=== PATIENT | female | born 1955 | race Caucasian/White ===

== ENCOUNTER → 2020-04-15 09:54 | Outpatient (BNVA) | payer MEDICARE, SELFPAY | PROVIDERS: Family Provider Nurse Practitioner; PCP Nurse Practitioner; Visit Provider Nurse Practitioner | DX: E11.9 Type 2 diabetes mellitus without complications (principal); I71.4 Abdominal aortic aneurysm, without rupture; E78.2 Mixed hyperlipidemia; I10 Essential (primary) hypertension; F41.1 Generalized anxiety disorder; Z12.39 Encounter for other screening for malignant neoplasm of breast | CPT/HCPCS: 80053; 80061; 82044; 83036; 84443 ==

== ENCOUNTER → 2020-05-02 10:03 | Outpatient (BNVA) | payer MEDICARE, SELFPAY | PROVIDERS: Family Provider Nurse Practitioner; PCP Nurse Practitioner; Visit Provider Nurse Practitioner | DX: L98.9 Disorder of the skin and subcutaneous tissue, unspecified (principal) | CPT/HCPCS: 88305 ==

== ENCOUNTER 2020-05-04 07:59 | Outpatient (CLI) | payer MEDICARE, SELFPAY ==
--- NOTE | 2020-05-04 08:12 | CT_ITS ---
WS: [id number] CT ANGIOGRAPHY abdomen and pelvis AORTA HISTORY: AAA 2.3 cm 2016 TECHNIQUE: CT angiogram is performed during IV injection. Reformation images reviewed. All CT scans a [facility] use at least one of these dose optimization techniques: automated exposure co ntrol; mA and/or kV adjustment per patient size (includes targeted exams where dose is matched to cli nical indication); or iterative reconstruction. CONTRAST: Omnipaque 350; 95 mL IV. DLP: 1543.64 mGycm COMPARISON: 04/02/2017 Incompletely visualized 5 mm nodule at the LEFT lung base. May be the confluence of several pulmonary arteries. Heart size is normal. Small hiatal hernia. Abdominal aorta: Mild atherosclerosis of the abdominal aorta. There is very minimal ectasia of the in frarenal aorta with a maximum diameter of 2.4 cm. Iliac arteries are patent although mildly tortuous. Celiac axis, SMA and renal arteries are all patent with mild atherosclerosis. No high-grade areas of stenosis. Hepatic steatosis. Mild tricuspid regurgitation into hepatic veins. Subcapsular 5 mm hypodensity is p robably a cyst. Liver, spleen and pancreas are negative. No adrenal mass. Bilateral renal cysts with the largest on the RIGHT slightly lobulated 4.9 cm. No adenopathy or ascites. Mild diffuse constipati on. Fat-containing 10 mm nodule in the ascending colon is probably a lipoma. Several scattered divert icula in the sigmoid region with no acute inflammation. Uterus is slightly bulky and there is a linear hyperdense structure within the central endometrium wh ich could be an IUD device. Degenerative changes at L5-S1. No osteoblastic or osteolytic bone disease. Sclerotic focus in the pro ximal LEFT femur is probably a bone island. CT/CT angio abdomen pelvis [id number] IMPRESSION: 1. Long-term stability of minimal aneurysmal dilatation of the infrarenal aort a. Maximum diameter of 2.4 cm. 2. Hepatic steatosis. 3. Small hiatal hernia. 4. Bilateral renal cysts. 5. Constipation and a few scattered sigmoid diverticula. 6. Bulky uterus and foreign body in the central uterus may be an IUD. Recomme nd correlation with history and BILINGUAL HR GENERALIST examination. Transvaginal imaging of the ut erus may be necessary to evaluate for possible fibroids.
[2020-05-04] MEDS: iohexol 350 mg/mL 100 mL Btl IV (08:41)
== END 2020-05-04 08:00 | disposition home or self-care (01) ==
LOC: RADWPI 08:04
PROVIDERS: Family Provider Nurse Practitioner; PCP Nurse Practitioner; Visit Provider Nurse Practitioner
DX: I71.4 Abdominal aortic aneurysm, without rupture (principal); K76.0 Fatty (change of) liver, not elsewhere classified; K44.9 Diaphragmatic hernia without obstruction or gangrene; N28.1 Cyst of kidney, acquired; K59.00 Constipation, unspecified; T19.3XXA Foreign body in uterus, initial encounter; X58.XXXA Exposure to other specified factors, initial encounter
CPT/HCPCS: 74174; Q9967

== ENCOUNTER → 2020-09-28 09:29 | Outpatient (BNVA) | payer MEDICARE, SELFPAY | PROVIDERS: Family Provider Nurse Practitioner; PCP Nurse Practitioner; Visit Provider Nurse Practitioner | DX: E11.9 Type 2 diabetes mellitus without complications (principal); E78.2 Mixed hyperlipidemia; I10 Essential (primary) hypertension; F41.1 Generalized anxiety disorder | CPT/HCPCS: 73630; 80053; 80061; 81000; 82043; 83036 ==

== ENCOUNTER 2020-10-18 10:02 | Emergency (ER) | payer MEDICARE, SELFPAY ==
[2020-10-18 10:12] VITALS: BP 168/80; PULSE 68; RESP 18; TEMP 36.7; O2SAT 98; BMI 29.7
--- NOTE | 2020-10-18 10:33 | ECG_ITS ---
[facility] Test Date: 2020-10-18 Pat Name: Maricel Edwards Department: Room: Gender: Female Cabin Crew: : 1955 Requested By: Tyree Ashton Order Number: [id number] Zeinab MD: Gemma Love M.D. Measurements Intervals [place] Rate: 69 P: 51 GA: 144 QRS: -5 QRSD: 106 T: 16 QT: 419 QTc: 449 Interpretive Statements SINUS BRADYCARDIA POSSIBLE LEFT ATRIAL ENLARGEMENT [> 1mm x 0.07mV NEG P AREA IN V1] LEFT AXIS DEVIATION [QRS AXIS <= 20, 3-5mo] INTRAVENTRICULAR CONDUCTION DELAY No previous ECG available for comparison Electronically Signed On 10-18-2020 21:42:12 [employer] MARKETING MANAGER by Gemma Love M.D. [id number] f
--- NOTE | 2020-10-18 10:33 | CT_ITS ---
WS: [id number] CT ABDOMEN AND PELVIS NONCONTRAST HISTORY: flank pain, right-sided flank pain and microhematuria. TECHNIQUE: Imaging performed through the abdomen and pelvis. Coronal and sagittal reformats are submi tted. All CT scans at [facility] use at least one of these dose optimization techniques: automated exposure control; mA and/or kV adjustment per patient size (includes targeted exams where d ose is matched to clinical indication); or iterative reconstruction. DLP: 1421.23 mGy.cm COMPARISON: 05/04/2020 Lower thorax: Lung bases are hyperinflated. LEFT lower lobe patchy opacifications from pneumonia or p neumonitis. New LEFT lower lobe opacification since 05/04/2020. Heart size is top normal. No pericardia l effusion. Small hiatal hernia. Liver: Marked hepatomegaly and hepatic steatosis. There are a few scattered areas of decreased attenu ation within the liver which cannot be further characterized no interval change. Gallbladder: Normal gallbladder. Pancreas: Normal size pancreas. There is a calcification in the tail of the pancreas. There is also a ir in the pancreatic duct which is probably refluxing from the duodenum. Spleen: Normal. Adrenal glands: Normal. No mass. Right kidney: Marked hydronephrosis and hydroureter. Ureter is tortuous and dilated throughout its co urse. 5 mm distal calcification in the ureter causing the obstruction. There is also a known lobulate d 4.2 cm renal cyst. 2 mm nonobstructing calcification upper pole. Additional 3 mm calcification lowe r pole. Left kidney: Hypodense 1.0 cm cyst in the upper pole is stable. No obstruction. Aorta: Mild dilatation of the infrarenal aorta with maximum diameter of 2.3 cm. Mild atherosclerosis. No free fluid, intraperitoneal air or significant lymphadenopathy. GI tract: No GI tract obstruction. Mild constipation. The appendix is normal. Abdominal wall: Fat-containing umbilical hernia. Pelvis: Jorgensen catheter present in a nondistended urinary bladder. Uterus is retroverted and contains an IUD. No free fluid in the pelvis. Osseous structures: Stable sclerotic lesion in the proximal LEFT femur. CT/CT kidney stone [id number] IMPRESSION: 1. High-grade RIGHT hydroureteronephrosis secondary to a 5 mm UV junction calc ification. 2. Hepatomegaly and hepatic steatosis. 3. LEFT lower lobe opacifications probably due to pneumonitis or pneumonia. 4. Small hiatal hernia. 5. Small amount of air in the pancreatic duct is probably due to reflux from t he duodenum.
--- NOTE | 2020-10-18 10:33 | W.ED.ABDPA2 ---
HPI - Abdominal Pain General: Chief Complaint: Abdominal Pain Stated Complaint: kidney pain Time Seen by Provider: 10/18/20 10:10 History of Present Illness: HPI narrative: 59-year-old female presents emergency room complaining of right flank pain radiating down to the groin began earlier this morning. Yesterday she had fallen from standing but did not hit her side or her back just tripped while walking in the black. She not noticed any hematuria she has no history of any nephrolithiasis. She has difficult time trying to find a comfortable position is repositioning continually in the exam room. No prior abdominal surgeries. MD elicited complaint: flank pain Pertinent past history: none Onset (ago): hour(s) Pain Consistency: constant Location: R flank Quality: cramping and stabbing Migration to: other (Right groin) Exacerbating factors: nothing Relieving factors: nothing Associated Symptoms: Reports GI cramping, nausea and poor appetite; Denies anorexia, belching, bloating, change in bowel habits, change in stool character, chills, coffee ground emesis, constipation, diarrhea, dyspepsia, dysuria, excessive flatus, fever(s), heartburn, hematochezia, hematuria, hematemesis, fecal incontinence, loose stools, melena, syncope and vomiting Review of Systems Const: Denies: fever(s) or chills ENMT: Denies: throat pain, ear or mastoid pain, nasal discharge or nasal congestion Card: Denies: syncope Resp: Denies: dyspnea, productive cough or non-productive cough GI: Reports: nausea and GI cramping; Denies: vomiting, hematemesis, coffee ground emesis, heartburn, diarrhea, constipation, bloating, belching, excessive flatus, fecal incontinence, change in bowel habits, change in stool character, hematochezia or melena : Denies: dysuria or hematuria Skin/Breast: Denies: rash or pruritus PFSH ED PFSH: Medical History (Updated 10/18/20 @ 13:00 by Tyree Shepard DO) AAA (abdominal aortic aneurysm) 2.3cm 2016 2.4cm 05/04/2020 Anxiety, generalized Bilateral renal cysts 05/04/2020 Controlled diabetes mellitus Diverticula of colon Hiatal hernia HTN, goal below 130/80 Mixed hyperlipidemia Nonalcoholic fatty liver disease Surgical History 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 finger History of cardiac radiofrequency ablation 2008 at [facility] Family History Other Herpes zoster Denies family history of Bleeding disorder Social History Smoking and tobacco status: never smoked Second hand smoke exposure: No Smoking risk assessment/counseling performed?: No Alcohol intake: never Desire information about alcohol rehabilitation?: No Counseling given: No Desire information about substance/drug rehabilitation?: No Counseling given: No Adopted: No Caregiver/support person: No Lives independently: Yes Household members: spouse Housing: House Marital status: Number of children: 2 Number of grandchildren: 8 Highest education level completed: Associate Degree: Academic Program service: No Current occupational status: retired Pets and animals: Yes History of recent travel: No Current gender identity: Female Physical Exam Const: COMMON NORMALS: no acute distress GENERAL APPEARANCE: cooperative and comfortable ORIENTATION/CONSCIOUSNESS: Yes awake, Yes oriented to person, Yes oriented to place and Yes oriented to time HENMT: COMMON NORMALS: normocephalic, atraumatic and hearing grossly normal bilaterally HEAD & SCALP: normocephalic and atraumatic Eye: COMMON NORMALS: Equal, round and reactive pupils present, EOMs intact bilaterally, conjunctivae normal and no scleral icterus CONJUNCTIVA: Yes conjunctivae normal PUPIL: Yes Equal, round and reactive pupils present Neck/C-Spine: COMMON NORMALS: no JVD Resp: COMMON NORMALS: normal respiratory effort, No retractions, No use of accessory muscles and clear to auscultation bilaterally AUSCULTATION: clear to auscultation bilaterally Cardio: COMMON NORMALS: no JVD, regular rate, regular rhythm and No murmurs present (Cardio) RATE: regular rate RHYTHM: regular rhythm GI: COMMON NORMALS: Soft to palpation and No hepatosplenomegaly present AUSCULTATION: Yes normoactive bowel sounds PALPATION: Yes Soft to palpation, No Tenderness to palpation present (GI), No Guarding due to palpation present (GI) and Yes No hepatosplenomegaly present : BLADDER/KIDNEY EXAM: Yes CVA tenderness Back/Pelvis: GENERAL BACK: Yes CVA tenderness CVA tenderness: right Extremity: COMMON NORMALS: normal to inspection, capillary refill normal, no clubbing, cyanosis or edema, no calf tenderness and no pedal edema Neuro: SENSORIUM/ORIENTATION: Yes oriented to person, Yes oriented to place and Yes oriented to time Skin: COMMON NORMALS: no rashes or lesions noted GENERAL SKIN EXAM: no rashes or lesions noted Course Vital Signs: Vital signs: Vital Signs Temperature 98.1 F 10/18/20 10:12 Pulse Rate 68 10/18/20 10:12 Respiratory Rate 18 10/18/20 12:14 Blood Pressure 168/80 10/18/20 10:12 Pulse Oximetry 98 10/18/20 12:14 MDM - Abdominal Pain Lab Data: Labs: Lab Results 10/18/20 10/18/20 10/18/20 Range/Units 10:25 10:25 11:17 WBC 9.1 (4.0-10.0) 10^3/ uL RBC 4.93 (4.1-5.3) 10^6/u L Hgb 15.7 H (11.5-15.3) g/dL Hct 49.2 H (37.0-47.0) % MCV 99.8 H (81-99) fL MCH 31.8 (28.0-34.0) pg MCHC 31.9 (30.0-36.0) g/dL RDW 12.6 (12.1-15.1) % Plt Count 166 (130-400) 10^3/c mm MPV 10.4 (7.4-10.4) fL Neut % (Auto) 67.9 % Lymph % (Auto) 23.5 % Traverse % (Auto) 8.0 % Eos % (Auto) 0.2 % Baso % (Auto) 0.1 % Neut # (Auto) 6.18 (1.8-7.7) 10^3/u L Lymph # (Auto) 2.1 (0.8-4.8) 10^3/u L Traverse # (Auto) 0.7 (0.2-0.9) 10^3/u L Eos # (Auto) 0.0 (0.0-0.8) 10^3/u L Baso # (Auto) 0.0 (0.0-0.1) 10^3/u L Nucleated RBC % (a uto) 0 % Nucleated RBCs # 0.0 /100WBC Sodium 142 (136-145) mmol/L Potassium 3.2 L (3.5-5.1) mmol/L Chloride 107 (98-107) mmol/L Carbon Dioxide 21 L (22-29) mmol/L Anion Gap 17.2 (5-19) BUN 13 (8-23) mg/dL Creatinine 0.7 (0.5-0.9) mg/dL GFR Calculation 83.7 L (90-130) mL/min Glucose 132 H (65-115) mg/dL Calculated Osmolal ity 296 H (285-295) mOsm/k g Calcium 8.6 (8.5-10.5) mg/dL Total Bilirubin 0.3 (0.15-1.2) mg/dL AST 30 (0-32) U/L ALT 32 (0-33) U/L Alkaline Phosphata se 97 (35-105) IU/L Total Protein 6.9 (6.6-8.7) g/dL Albumin 3.9 (3.5-5.2) g/dL Globulin 3.0 (1.3-4.6) g/dL Urine Color Yellow (Yellow) Urine Appearance Hazy A (CLEAR) Urine pH 5 (5-7) Ur Specific Gravit y 1.025 (1.005-1.030) Urine Protein 1+ H (Negative) Urine Glucose (UA) Norm (Normal) Urine Ketones Negative (Negative) Urine Blood 3+ H (Negative) Urine Nitrate Negative (Negative) Urine Bilirubin Neg (Negative) Urine Urobilinogen Norm (Negative) mg/dL Ur Leukocyte Linda ase Negative (Negative) Urine RBC 10-15 H (0-2) /hpf Urine WBC 0-4 H (0-5) /hpf Ur Squamous Epith Cells 0-4 H (0-5) /hpf Amorphous Sediment Trace /hpf Urine Bacteria 2+ H (NONE) /hpf Urine Mucus 1+ /hpf Urine Yeast Trace /hpf Discharge Plan Discharge Patient Disposition: Home Clinical Impression: Calculus of kidney Condition: Stable Prescriptions: New hydrocodone-acetaminophen 5-325 mg tablet 1 tab PO Q6H PRN (Reason: pain) Qty: 25 RF: 0 Zofran 4 mg tablet 4 mg PO Q6H PRN (Reason: nausea and vomiting) Qty: 20 RF: 0 tamsulosin 0.4 mg capsule 0.4 mg PO DAILY Qty: 30 RF: 0 No Action atorvastatin 40 mg tablet 40 mg PO DAILY Qty: 90 RF: 1 metformin 500 mg tablet extended release 24 hr 500 mg PO BID Qty: 180 RF: 1 metoprolol succinate 50 mg tablet extended release 24 hr 50 mg PO DAILY Qty: 90 RF: 1 venlafaxine 75 mg capsule,extended release 24hr 75 mg PO DAILY Qty: 90 RF: 1 meloxicam [Mobic] 7.5 mg tablet 7.5 mg PO DAILY Qty: 90 RF: 1 Discharge Orders: Discharge Order (Routine); Ordered 10/18/20 Ordered By: Tyree Shepard Referrals: Jesus Peng, CHRISTIANC [Primary Care Provider] - Discharge Diet: Usual diet Discharge Activity: Increase activity as tolerated Activity Restrictions/Additional Instructions: Strain urine to collect stone. Return to the hospital with stone if you are able to collect it. Case management will call will follow up with the urologist. If pain is uncontrolled return to the emergency room. Coding Level of Care Code ED [place] [employer] Attendant for [place] Fwd Exam Comprehensive
[2020-10-18 10:38] VITALS: RESP 18; O2SAT 98
[2020-10-18] MEDS: morphine 4 mg/mL SDV 1 mL 6 MG IVP ×2 (10:38→12:14)
[2020-10-18] MEDS: ondansetron 2 mg/ML SDV 2 mL 4 MG IVP ×2 (10:38→12:13)
[2020-10-18 10:39] LABS: Basophils % 0.1 %; Eosinophils % 0.2 %; Hematocrit 49.2 % (37.0-47.0); Hemoglobin 15.7 g/dL (11.5-15.3); Lymphocytes # 2.1 10^3/uL (0.8-4.8); Lymphocytes % 23.5 %; Mean Corpuscular HGB Conc 31.9 g/dL (30.0-36.0); Mean Corpuscular Hemoglobin 31.8 pg (28.0-34.0); Mean Corpuscular Volume 99.8 fL (81-99); Mean Platelet Volume 10.4 fL (7.4-10.4); Monocytes # 0.7 10^3/uL (0.2-0.9); Neutrophils # 6.18 10^3/uL (1.8-7.7); Neutrophils % 67.9 %; Nucleated Red Blood Cells % 0 %; Platelet Count 166 10^3/cmm (130-400); Red Blood Count 4.93 10^6/uL (4.1-5.3); Red Cell Distribution Width 12.6 % (12.1-15.1); White Blood Count 9.1 10^3/uL (4.0-10.0)
[2020-10-18 11:01] LABS: Alanine Aminotransferase 32 U/L (0-33); Albumin Level 3.9 g/dL (3.5-5.2); Alkaline Phosphatase 97 IU/L (35-105); Anion Gap 17.2 (5-19); Aspartate Amino Transferase 30 U/L (0-32); Blood Urea Nitrogen 13 mg/dL (8-23); Calcium 8.6 mg/dL (8.5-10.5); Carbon Dioxide 21 mmol/L (22-29); Chloride 107 mmol/L (98-107); Glomerular Filtration Rate 83.7 mL/min (90-130); Glucose 132 mg/dL (65-115); Osmolality Calculated 296 mOsm/kg (285-295); Potassium 3.2 mmol/L (3.5-5.1); Sodium 142 mmol/L (136-145); Total Bilirubin 0.3 mg/dL (0.15-1.2); Total Protein 6.9 g/dL (6.6-8.7)
[2020-10-18 11:04] VITALS: O2SAT 91
[2020-10-18 11:38] LABS: Add Urine Microscopic? YES; Bilirubin Urine Neg (Negative); Blood Urine 3+ (Negative); Glucose Urine UA Norm (Normal); Ketones Urine Negative (Negative); Leukocyte Esterase Urine Negative (Negative); Nitrate Urine Negative (Negative); Protein Urine 1+ (Negative); Specific Gravity, Urine 1.025 (1.005-1.030); Urine Appearance Hazy (CLEAR); Urine Color Yellow (Yellow); Urobilinogen Urine Norm (Negative); pH Urine 5 (5-7)
[2020-10-18 11:45] LABS: Bacteria Urine 2+ /hpf; Squamous Epithelial Cell Urine 0-4 /hpf (0-5); WBC Urine 0-4 /hpf (0-5)
[2020-10-18 11:46] LABS: Mucus Urine 1+ /hpf
[2020-10-18 11:47] LABS: Amorphous Sediment Urine TRACE /hpf
[2020-10-18 11:48] LABS: Add Urine Culture? Yes
--- NOTE | 2020-10-18 12:00 | XR_ITS ---
WS: [id number] Exam: XR chest 1V portable [id number] Date/Time of Exam: 10/18/2020 12:00 PM Reason For Exam: dyspnea/cough Comparison 04/20/2016. Findings: The lungs are clear and fully expanded. Costophrenic angles are sharp. No infiltrates. Bronchovascula r relief appears normal. Cardiac silhouette is unremarkable. Bony elements are intact. XR/XR chest 1V portable [id number] IMPRESSION: Unremarkable chest radiograph.
[2020-10-18 12:14] VITALS: RESP 18; O2SAT 98
[2020-10-18 13:25] VITALS: BP 152/82; PULSE 76; RESP 16; O2SAT 98
[2020-10-18 13:31] VITALS: O2SAT 98
--- NOTE | 2020-10-18 14:21 | DCPLANNER ---
ict development manager was asked to schedule a follow up appointment for patient with Dr. Bailon. ict development manager called the office of Dr. Bailon, spoke with Ayla, gave clinic patients information. ict development manager was told that patients information would be printed and reviewed. Clinic will call patient with appointment information.
--- NOTE | 2020-10-26 09:59 | DCPLANNER ---
Patient had a follow up appointment scheduled for 10.19.[address] Bailon - patient did attend appointment.
== END 2020-10-18 13:35 | disposition home or self-care (01) ==
PROVIDERS: Emergency Provider Family Medicine; PCP Nurse Practitioner
DX: N20.0 Calculus of kidney (principal); E11.9 Type 2 diabetes mellitus without complications; Z79.84 Long term (current) use of oral hypoglycemic drugs; E78.2 Mixed hyperlipidemia
CPT/HCPCS: 12345; 51702; 71045; 74176; 80053; 81001; 85025; 87086; 93005; 96374; 96375; 96376; 99283; 99284; J2270; J2405

== ENCOUNTER 2020-10-19 08:59 | Outpatient (CLI) | payer MEDICARE, SELFPAY ==
--- NOTE | 2020-10-19 09:18 | XR_ITS ---
WS: [id number] Exam: XR KUB [id number] Date/Time of Exam: 10/19/2020 9:21 AM Reason For Exam: KIDNEY STONE No sign of bowel obstruction or free air. Several tiny nonspecific pelvic calcifications are noted. N o suspicious calcifications superimposing the renal silhouettes. A linear opaque density is seen in t he pelvis that may represent an IUD. Regional bony structures are intact. Degenerative changes of the lower lumbar spine. XR/XR KUB [id number] IMPRESSION: 1. Nonspecific small pelvic calcifications. 2. No acute finding.
== END 2020-10-19 09:00 | disposition home or self-care (01) ==
LOC: RAD 09:17
PROVIDERS: PCP Nurse Practitioner; Visit Provider Urology
DX: N20.0 Calculus of kidney (principal); N20.1 Calculus of ureter
CPT/HCPCS: 74018; 81003; 87635

== ENCOUNTER 2020-10-21 11:09 | Day surgery (SDC) | payer MEDICARE, SELFPAY ==
[2020-10-20 15:59] VITALS: BMI 29.7
--- NOTE | 2020-10-21 | SCC_ITS ---
Procedure Done: 1. Cystoscopy, RIGHT: ureteroscopy, laser, stent 2. Right retrograde pyelogram 24.2 seconds of fluoroscopic guidance, for a cumulative dose of 9.51 mGy, was provided to Dr. Bailon by the radiology department. C-arm images of the abdomen were saved for the patient's permanent record. [facility]
--- NOTE | 2020-10-21 11:17 | SC_ITS ---
WS: [id number] C-arm FL for Urology REASON FOR EXAM: RIGHT ureteroscopy FINDINGS: Single AP view of the right abdomen demonstrates a presumed right ureteral catheter. Contrast has bee n injected however the volume and density is nondiagnostic. SC/C-arm FL for Urology IMPRESSION: Intraprocedural imaging of the right urinary tract as above.
[2020-10-21 11:23] VITALS: BP 113/73; PULSE 82; RESP 18; TEMP 36.7; O2SAT 96
[2020-10-21] MEDS: sodium chloride 0.9% 1,000 ML 30 ML IV (11:38)
[2020-10-21 11:44] LABS: Glucose Point of Care 96 mg/dL (70-110)
--- NOTE | 2020-10-21 11:46 | ANES.PREANE2 ---
Pre-Anesthetic Assessment Pre-Anesthetic Assessment: Height/Weight: Height 1.7 m Weight 86.183 kg Temp Pulse Resp BP Pulse Ox 98.1 F 82 18 113/73 96 10/21/20 11:23 10/21/20 11:23 10/21/20 11:23 10/21/20 11:23 10/21/20 11:23 Preop Diagnosis: Right distal ureteral stone Proposed Procedure: Operation Date: 10/21/20 13:00 Proposed Procedures p Laser Lithotripsy 16951 [id number] 23239 N20.1 n20.0(Not Applicable) - Sherif Bailon MD s Cystoscopy(Not Applicable) - Sherif Bailon MD s Retrograde Pyelogram(Right) - Sherif Bailon MD s Ureteroscopy(Not Applicable) - Sherif Bailon MD s Ureteral Stent Placement(Not Applicable) - Sherif Bailon MD Familial anesthetic complications: None Was Beta Sylvie taken within 24 hours: Yes Last intake: Intake Last Liquid Date 10/21/20 Last Liquid Time 08:00 Last Solid Date 10/20/20 Last Solid Time 19:00 Social: Social History: No alcohol and No tobacco Exam: Pre-Anes Outpt Exam: alert, oriented x 3, clear to auscultation bilaterally and regular rate & rhythm Airway: Cervical ROM: WNL MP: 3 Dentition: Other (missing) CV/HEM: CV/HEM: HTN Comments: AAA Hx cardiac ablation for tachycardia at [facility] in 2007 Hepatic: Comments: fatty liver GI: GI: Hiatus hernia Metabolic: Metabolic: DM and Hyperlipidemia Anesthetic Plan: ASA status: 3 Anesthesia: General Risk of > 500 ml blood loss (7ml/kg in children): No Meds/Allergies Current Medications: Current Medications Generic Name Dose Route Start Last Admin Trade Name Freq PRN Reason Stop Dose Admin Sodium Chloride 1,000 mls @ 30 ml s/hr 10/21/20 11:30 10/21/20 11:38 Sodium Chloride 0.9% IV 10/22/20 11:29 30 mls/hr .Q24H PRETTY Administration PFSH Anesthesia PFSH: Medical History AAA (abdominal aortic aneurysm) 2.3cm 2016 2.4cm 05/04/2020 Anxiety, generalized Bilateral renal cysts 05/04/2020 Controlled diabetes mellitus Diverticula of colon Hiatal hernia HTN, goal below 130/80 Mixed hyperlipidemia Nonalcoholic fatty liver disease Right ureteral stone Surgical History 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 finger History of cardiac radiofrequency ablation 2008 at [facility] Family History Other Herpes zoster Denies family history of Bleeding disorder Social History Smoking and tobacco status: never smoked Second hand smoke exposure: No Smoking risk assessment/counseling performed?: No Alcohol intake: never Desire information about alcohol rehabilitation?: No Counseling given: No Desire information about substance/drug rehabilitation?: No Counseling given: No Adopted: No Caregiver/support person: No Lives independently: Yes Household members: spouse Housing: House Marital status: Number of children: 2 Number of grandchildren: 8 Highest education level completed: Associate Degree: Academic Program service: No Current occupational status: retired Pets and animals: Yes History of recent travel: No Current gender identity: Female Data Anesthesia Other Labs: Laboratory Results - last 48 hr 10/21/20 11:38 POC Glucose 96 Cardiac Studies: No Data to Display
[2020-10-21] MEDS: levofloxacin-dextrose 5 % 500 MG/100 ML PREMIX 100 MG IV (13:47)
--- NOTE | 2020-10-21 13:51 | W.PM.OPSUD ---
Surgery/Procedure H&P Update DATE OF PROCEDURE: October 21, 2020 DATE H&P PERFORMED: 10/19/20 H&P UPDATE INFORMATION: I have reviewed H&P completed within last 30 days, I have examined patient prior to procedure, No changes to prior documentation and H&P is in [facility] EMR on date indicated CHANGES TO PREVIOUS DOCUMENTATION: She is still having some symptoms although not as severe renal colicky pain. Has been diligent about straining her urine and has not seen any obvious stone compatible with what has been identified on CT scan and KUB. Her COVID-19 test has not been resulted yet. It has been over 48 hours which was our previous protocol. We will take the appropriate Covid 19 precautions. PREOP DIAGNOSIS: Right distal ureteral stone PLANNED PROCEDURE: Operation Date: 10/21/20 13:00 Proposed Procedures p Laser Lithotripsy 77587 [id number] N20.1 n20.0(Not Applicable) - Sherif Bailon MD s Cystoscopy(Not Applicable) - Sherif Bailon MD s Retrograde Pyelogram(Right) - Sherif Bailon MD s Ureteroscopy(Not Applicable) - Sherif aBilon MD s Ureteral Stent Placement(Not Applicable) - Sherif Bailon MD
--- NOTE | 2020-10-21 13:53 | P.OP_ITS ---
Operative Report Date of procedure: October 21, 2020 Pre-op Diagnosis: Right distal ureteral stone Post-op diagnosis: same Procedure Done: 1. Cystoscopy, RIGHT: ureteroscopy, laser, stent 2. Right retrograde pyelogram Implants: Right ureteral stent, 7 Bhutanese by 26 cm double-pigtail stent without string Pathology: Stone fragments Surgeon: Adamaris Anesthesia: General Estimated blood loss: Minimal Urine output: Not measured Complications: None Findings: Stone in the expected position. Completely fragmented and all fragments removed. Stent left indwelling due to significant ureteral inflammatory change where the stone had been lodged. Brief History: Maricel is a very pleasant 65-year-old white female recently diagnosed with obstructing right distal ureteral stone. She initially chose conservative management but has failed to pass the stone and is still symptomatic at this dictation time. Her right kidney was significantly dilated as was the ureter. Plans are for endoscopic treatment of the stone. Procedure: After routine preoperative evaluation examination and obtaining of informed consent was taken to the operating suite on 10/21/2020 where general anesthesia was administered without difficulty after appropriate timeout was performed, SCDs confirmed to be functioning, preoperative antibiotics administered, beta- will protocol confirmed. Prepped and draped in usual sterile fashion in dorsal lithotomy position pain careful attention to avoiding pressure points. 21 Bhutanese cystoscope with 30 degree lens was introduced to urethral meatus and advanced into the bladder under videoscopy. The bladder was systematically examined. No stones were seen. An 8 Bhutanese cone-tip catheter was intubated into the RIGHT ureteral orifice for a right retrograde ureteropyelogram: Filling defect was noted in the very distal ureter about 1 cm proximal to the ureteral orifice. The filling defect was consistent with the stone seen previously. Contrast did easily flow proximal to the stone and showed a dilated ureter. No other filling defects were noted. A flexible tip guidewire was then advanced up the right ureter bypassing the st one and passed into the kidney. Ureter distal to the stone was dilated with a 15 Bhutanese 4 cm balloon. The wire was secured to the drapes as a safety wire. An offset semirigid ureteroscope was then advanced up the right ureter next to the wire and the stone was encountered in the expected position. It was very spiky . A 365 ?m thulium superpulse laser fiber was used to fragment the stone mostly into sand but with a few fragments that were removed with a parachute basket. Final inspection showed a lot of inflammatory change where the stone had been located but no other significant fragments were identified with passage of the scope up to the UPJ. Because of the localized inflammatory response it was decided to leave a stent indwelling and a 7 Bhutanese by 26 cm double-pigtail stent without string was passed over the guidewire through the cystoscope into appropriate position as confirmed via fluoroscopy and cystoscopy. Remaining fragments in the bladder were flushed free and sent for pathologic evaluation. Stent was confirmed to be draining. Tolerated the procedure well. Awakened in the operating room and returned to the recovery room in stable condition. PLANS: 1. Anticipate discharge from outpatient surgery 2. Maintain stent until week of the with removal in the office via cystoscopy.
[2020-10-21 14:41] VITALS: BP 136/87; PULSE 93; RESP 18; TEMP 36.6; O2SAT 90
[2020-10-21 14:45] VITALS: BP 126/76; PULSE 90; RESP 17; O2SAT 93
[2020-10-21 14:50] VITALS: BP 110/55; BP 140/79; PULSE 80; PULSE 88; RESP 16; RESP 18; TEMP 36.7; TEMP 36.9; O2SAT 93
[2020-10-21 15:15] VITALS: BP 102/50; PULSE 85; RESP 18; O2SAT 92
--- NOTE | 2020-10-21 18:39 | ANE.PACU2 ---
Inpatient post-anesthesia follow up: Airway intact: Yes Vital signs: Temperature 98.1 F Pulse Rate 85 Respiratory Rate 18 Blood Pressure 102/50 Pulse Oximetry 92 Oxygen Delivery Me thod Room Air Oxygen Flow Rate Fraction of Inspir ed Oxygen Hydration adequate: Yes Nausea and vomiting: No Pain level: 1 Mental status: Baseline
[2020-10-29 17:22] LABS: Stone Source RIGHT URETER
== END 2020-10-21 15:40 | disposition home or self-care (01) ==
PROVIDERS: PCP Nurse Practitioner; Visit Provider Urology
PROC: (CPT 52356; principal; 2020-10-21 13:00)
PROC: 0TJB8ZZ Inspection of Bladder, Via Natural or Artificial Opening Endoscopic (ICD-10-PCS; CPT 52000; 2020-10-21 13:00)
PROC: (CPT 74420; 2020-10-21 13:00)
PROC: 0TJ98ZZ Inspection of Ureter, Via Natural or Artificial Opening Endoscopic (ICD-10-PCS; CPT 52351; 2020-10-21 13:00)
PROC: (CPT 50605; 2020-10-21 13:00)
DX: N20.1 Calculus of ureter (principal); I10 Essential (primary) hypertension; E11.9 Type 2 diabetes mellitus without complications; E78.5 Hyperlipidemia, unspecified; F41.9 Anxiety disorder, unspecified; E78.2 Mixed hyperlipidemia; Z79.84 Long term (current) use of oral hypoglycemic drugs
CPT/HCPCS: 52356; 12345; 36416; 76000; 82365; 82962; 88300; C1725; J1100; J1956; J2405; J2704; J3010; J7030

== ENCOUNTER → 2020-11-04 09:21 | Outpatient (BNVA) | payer MEDICARE, SELFPAY | PROVIDERS: PCP Nurse Practitioner; Visit Provider Urology | DX: N20.1 Calculus of ureter (principal); N20.0 Calculus of kidney; Z96.0 Presence of urogenital implants | CPT/HCPCS: 81003 ==

== ENCOUNTER 2021-01-27 09:04 | Outpatient (CLI) | payer MEDICARE, SELFPAY ==
--- NOTE | 2021-01-27 09:11 | MM_ITS ---
WS: [id number] BILATERAL SCREENING DIGITAL MAMMOGRAM WITH CAD HISTORY: SCREENING COMPARISON: 11/18/2018 and 02/21/2015 Bilateral CC and MLO views submitted. Computer aided detection analyzed. Breast composition: There are scattered areas of fibroglandular density. No suspicious masses, microc alcifications or architectural distortion. MM/[place] [id number] IMPRESSION: BI-RADS: 1-Negative FOLLOW UP: 1 Year Follow-up
== END 2021-01-27 09:05 | disposition home or self-care (01) ==
LOC: RADSHAW 09:08
PROVIDERS: PCP Nurse Practitioner; Visit Provider Nurse Practitioner
DX: Z12.31 Encounter for screening mammogram for malignant neoplasm of breast (principal)
CPT/HCPCS: 77067

== ENCOUNTER → 2021-03-14 09:57 | Outpatient (BNVA) | payer MEDICARE, SELFPAY | PROVIDERS: PCP Nurse Practitioner; Visit Provider Nurse Practitioner | DX: E78.2 Mixed hyperlipidemia (principal); E11.9 Type 2 diabetes mellitus without complications; F41.1 Generalized anxiety disorder; M79.672 Pain in left foot; I10 Essential (primary) hypertension; F98.8 Other specified behavioral and emotional disorders with onset usually occurring in childhood and adolescence; G89.29 Other chronic pain | CPT/HCPCS: 80053; 80061; 83036 ==

== ENCOUNTER 2021-05-15 07:29 | Outpatient (CLI) | payer MEDICARE, OTHER, SELFPAY ==
--- NOTE | 2021-05-15 07:45 | XR_ITS ---
WS: [id number] Exam: XR KUB [id number] Date/Time of Exam: 05/15/2021 7:45 AM Reason For Exam: N20.1 - Calculus of ureter No bowel obstruction or free air. 3 mm calcification superimposing the upper pole the left kidney bre t may represent a renal stone. No calcifications seen in the region of the right kidney. There are bi lateral nonspecific pelvic calcifications. Organ margins are otherwise intact. Remaining bony structu res are unremarkable. XR/XR KUB [id number] IMPRESSION: 1. 3 mm calcification superimposing the upper pole left kidney that may represe nt a renal stone. Nonspecific bilateral pelvic calcifications. 2. No acute abdominal finding.
== END 2021-05-15 07:30 | disposition home or self-care (01) ==
PROVIDERS: PCP Nurse Practitioner; Visit Provider Urology
DX: N20.1 Calculus of ureter (principal)
CPT/HCPCS: 74018; 81003

== ENCOUNTER 2021-09-05 10:40 | Outpatient (CLI) | payer MEDICARE, OTHER, SELFPAY ==
--- NOTE | 2021-09-05 10:55 | XR_ITS ---
WS: [id number] Left shoulder, 3 views, 09/05/2021 Clinical Data: M25.512 - Pain in left shoulder Comparison: None. Findings: No fractures or dislocations are seen. The AC joint is normal. The adjacent left clavicle, left scapu la and ribs are normal. The soft tissues are unremarkable. XR/XR shoulder LT min 2V* [id number] Impression: Negative left shoulder.
== END 2021-09-05 10:41 | disposition home or self-care (01) ==
PROVIDERS: PCP Nurse Practitioner; Visit Provider Nurse Practitioner
DX: M25.512 Pain in left shoulder (principal); E11.9 Type 2 diabetes mellitus without complications
CPT/HCPCS: 73030; 80053; 80061; 82043; 83036

== ENCOUNTER 2021-09-05 19:13 | Emergency (ER) | payer MEDICARE, SELFPAY ==
[2021-09-05 19:35] VITALS: BP 124/77; PULSE 71; RESP 18; TEMP 36.6; O2SAT 96; BMI 29.4
--- NOTE | 2021-09-05 19:42 | XRR_ITS ---
PROCEDURE INFORMATION: Exam: XR Pelvis Exam date and time: 09/05/2021 7:42 PM Age: 66 years old Clinical indication: Injury or trauma; Other: Fall from horse; Blunt trauma (contusions or hematomas); Does not apply; Pelvic region TECHNIQUE: Imaging protocol: XR pelvis. Views: 1 or 2 view. COMPARISON: CT angio abdomen pelvis [id number] 05/04/2020 8:31 AM FINDINGS: Bones/joints: Unremarkable. No acute fracture. Soft tissues: Unremarkable. XR/XR pelvis 1-2V* [id number] IMPRESSION: No acute findings. Radiation Dose CTDIVOL = (mGy): DLP = (mGy-cm)
--- NOTE | 2021-09-05 19:42 | XRR_ITS ---
PROCEDURE INFORMATION: Exam: XR Lumbosacral Spine Exam date and time: 09/05/2021 7:42 PM Age: 66 years old Clinical indication: Injury or trauma; Other: Fall off horse; Blunt trauma (contusions or hematomas) TECHNIQUE: Imaging protocol: XR of the lumbosacral spine. Views: 2 or 3 views. COMPARISON: CT kidney stone [id number] 10/18/2020 11:02 AM FINDINGS: Bones/joints: Superior endplate fracture with anterior vertebral body wedging of L1. 25% height loss. Transitional vertebral anatomy is noted. The L5 level is partially sacralized. Unremarkable lumbar spine alignment.The lumbar spine demonstrates moderate discogenic and apophyseal joint degenerative changes at multiple levels. Soft tissues: Unremarkable. Vasculature: Abdominal aorta atherosclerosis. XR/XR lumbar spine 2-3V* [id number] IMPRESSION: 1. L1 vertebral compression fracture. 2. Recommend MRI lumbar spine correlation. Radiation Dose CTDIVOL = (mGy): DLP = (mGy-cm)
--- NOTE | 2021-09-05 21:06 | CTR_ITS ---
PROCEDURE INFORMATION: Exam: CT Lumbar Spine Without Contrast Exam date and time: 09/05/2021 9:06 PM Age: 66 years old Clinical indication: Injury or trauma; Other: Bucked off horse; Blunt trauma (contusions or hematomas); Additional info: Compression FX l2 TECHNIQUE: Imaging protocol: Computed tomography images of the lumbar spine without contrast. Radiation optimization: All CT scans at this facility use at least one of these dose optimization techniques: automated exposure control; mA and/or kV adjustment per patient size (includes targeted exams where dose is matched to clinical indication); or iterative reconstruction. COMPARISON: CR XR lumbar spine 2-3V* [id number] 09/05/2021 7:58 PM RADIATION DOSE METRICS: Total DLP (mGy-cm): 2076. FINDINGS: Vertebrae: L1 vertebral compression fracture. There is anterior vertebral body wedging and mild comminution of the anterior superior vertebral endplate. There is height loss around 25%. No fracture extension into the posterior elements. Lumbar spinal alignment is anatomic. Transitional lumbar vertebral anatomy is present. The posterior elements of L5 are sacralized. L1-L2: No significant disc protrusion. No severe spinal canal stenosis. No significant neural foraminal narrowing. L2-L3: No significant disc protrusion. No severe spinal canal stenosis. No significant neural foraminal narrowing. L3-L4: Moderate sized broad-based posterior disc bulge. No significant foraminal stenosis or spinal canal stenosis. L4-L5: Moderate sized broad-based posterior disc bulge. No severe spinal canal stenosis. No significant neural foraminal narrowing. L5-S1: Moderate sized broad-based posterior disc bulge. No severe spinal canal stenosis. No significant neural foraminal narrowing. Kidneys and ureters: 13 mm simple left renal upper pole cortical cyst. Negative for hydronephrosis. Vasculature: Scattered abdominal aorta atherosclerosis. Mild ectasia of mid abdominal aortic segment measuring 2.5 cm transverse diameter. Soft tissues: No significant lumbar paraspinal soft tissue hematoma. CT/CT lumbar spine wo con* [id number] IMPRESSION: Acute L1 vertebral fracture. COMMENTS: Consistent with the [employer]'s Incidental Findings Committee white paper (J Am Dontrell Radiol 2018): Any incidental renal lesion less than 1 cm or classified as too small to characterize, or any incidental cystic renal lesion characterized as simple-appearing, is likely benign. No follow-up imaging is recommended for these lesions per consensus recommendations based on imaging criteria. Radiation Dose CTDIVOL = (mGy): DLP = 2077.16 (mGy-cm)
[2021-09-05 21:10] VITALS: BP 123/72; PULSE 76; RESP 18; O2SAT 99
[2021-09-05] MEDS: HYDROcodone-acetaminophen 5-325 mg Tablet 1 TAB PO (21:11)
--- NOTE | 2021-09-05 21:34 | ED_ITS ---
HPI - General Adult General: Chief complaint: Back Pain/Injury Stated complaint: Injury Back Pain Time Seen by Provider: 09/05/21 21:33 History of Present Illness: HPI narrative: 66F presenting to the ED after falling off a horse earlier today at 6pm. Patient reports lower back pain and hitting her head, but denies LOC or other injuiriese. She denies any focal weakness in the legs, saddle symptoms, bowel or bladder incontinence. Onset: 2 hrs ago Duration:2 hrs Location:home Severity:moderate Review of Systems Narrative: Constitutional: No fever, no chills. HEENT: No vision changes CV: No chest pain, no palpitations PULM: no cough, no dyspnea. GI: No abdominal pain, no N/V/D. : No dysuria MSKEL: No muscle pain, +midline lumbar pain SKIN: No new rashes, no lesions. NEURO: No headache, no focal weakness. HEME: No visible bruises PSYCH: Normal mood PFSH ED PFSH: Medical History AAA (abdominal aortic aneurysm) 2.3cm 2017 2.4cm 05/04/2020 Anxiety, generalized Bilateral renal cysts 05/04/2020 Controlled diabetes mellitus Diverticula of colon Hiatal hernia HTN, goal below 130/80 Mixed hyperlipidemia Nonalcoholic fatty liver disease Right ureteral stone Surgical History 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 finger History of cardiac radiofrequency ablation [address] [facility] Family History Other Herpes zoster Denies family history of Bleeding disorder Social History Second hand smoke exposure: No Smoking risk assessment/counseling performed?: No Alcohol intake: never Desire information about alcohol rehabilitation?: No Counseling given: No Desire information about substance/drug rehabilitation?: No Counseling given: No Adopted: No Caregiver/support person: No Lives independently: Yes Household members: spouse Housing: House Marital status: Number of children: 2 Number of grandchildren: 8 Highest education level completed: Associate Degree: Academic Program service: No Current occupational status: retired Pets and animals: Yes History of recent travel: No Current gender identity: Female Female Reproductive History: Date of last menstrual period: 02/23/21 Physical Exam Narrative: EXAM NARRATIVE: Head: Atraumatic Eyes: PERRL, conjunctiva without injection ENT: Mucous membrane moist NECK: Supple, ROM intact LUNGS: LCTAB, no crackles/rhonchi CV: RRR ABDOMEN: Soft, nontender in all quadrants EXTREMITY: Normal ROM, 5/5 strength in the lower extremity, no saddle anesthesia SKIN: No rash or erythema NEURO: Awake and alert, no focal motor deficits PSYCH: Normal mood and affect BACK: +mild midline L1 tenderness without any step off, no other C/T/L tenderness : +no groin numbness or sensation loss Course 2 Vital Signs: Vital signs: Vital Signs Temperature 97.9 F 09/05/21 19:35 Pulse Rate 77 09/06/21 00:42 Respiratory Rate 16 09/06/21 00:42 Blood Pressure 139/64 09/06/21 00:42 Pulse Oximetry 94 09/06/21 00:42 MDM - General Adult MDM Narrative: Medical decision making narrative: 66-year-old female presents emergency room after falling off a horse with complaints of lower back pain. On exam, patient has mild tenderness palpation at the level of the L1. Lower extremity neuro exam is completely intact. CT evaluation shows L1 vertebral fracture with 25% anterior height loss. No retropulsion of particles into the spinal canal. Given patient had no neurological symptoms, <50% height loss of vertebra, anterior compression, and no lack of multiple levels -is likely a stable fracture. Patient will be placed in TLSO brace. On reassessment, patient continues to have good neurological sensation of the distal extremity. No concern for acute spinal cord compression or cauda equina symptoms at this time. Pain appears to be well controlled at this time after perccoet in the ED. Patient ambulated without difficulties with TLSO brace I have given patient follow up with our case assistant to be seen by our outpatient Orthopedics spine for further management of acute vertebral fracture. Patient aware of a call from our case assistant to schedule for appointment(s) and verbalizes understanding of the importance of following up. Rx tylenol, menthol, and lidocaine patch PRN pain Disposition: Discharge. Patient counseled regarding diagnostic impression, treatment plan. Patient given ED strict return precautions to return for continuation, worsening, or development of new symptoms of cauda equina or conus mellularis. Instructed to f/u w/ Orthopedic spine regarding symptoms today. Patient verbalized understanding. Imaging Data^: Other Imaging: Radiologist's impression: [facility], [place] [address]KP Scan ReportSigned Patient: Barbara Edwards #: [id number]: 4Acct#:[id number]/Sex: 66 / FADM Date: 09/05/21Loc: ERRoom/Bed:Attending Dr: Ordering Provider/Ordering MD: Annel Smith MD Date of Service: 09/05/21 Procedure(s): CT head wo con* [id number] Accession Number(s): [id number] Report Number: [id number] PROCEDURE INFORMATION: Exam: CT Head Without Contrast Exam date and time: 09/05/2021 10:00 PM Age: 66 years old Clinical indication: Injury or trauma; Blunt trauma (contusions or hematomas); Patient HX: Fall of horse; Additional info: Rule out other injuries TECHNIQUE: Imaging protocol: Computed tomography of the head without contrast. Radiation optimization: All CT scans at this facility use at least one of these dose optimization techniques: automated exposure control; mA and/or kV adjustment per patient size (includes targeted exams where dose is matched to clinical indication); or iterative reconstruction. COMPARISON: CT Sinus wo IV contrast* [id number] 04/20/2016 9:11 AM RADIATION DOSE METRICS: Total DLP (mGy-cm): 780.15 FINDINGS: Brain: Focal low-attenuation changes in the right basal ganglia external capsule area. Negative for intracranial hemorrhage. No space-occupying intracranial mass. No midline shift of the brain. Kaye matter and white matter interfaces are preserved. Cerebral ventricles: No ventriculomegaly. Paranasal sinuses: Visualized sinuses are unremarkable. No fluid levels. Mastoid air cells: Visualized mastoid air cells are well aerated. Orbital cavity: Symmetric orbits. Bones/joints: Unremarkable. No acute fracture. Soft tissues: Unremarkable. CT/CT head wo con* [id number] IMPRESSION: Negative for intracranial injury. Radiation Dose CTDIVOL = (mGy): DLP = 780.15 (mGy-cm) Dictated By:Adelaide Messer By:Adelaide Messer Date/Time:09/05/216DD/ 99 [facility] [place], [place] [address]XL Scan ReportSigned Patient: Barbara Edwards #: [id number]: 4Acct#:[id number]/Sex: 66 / FADM Date: 09/05/21Loc: ERRoom/Bed:Attending Dr: Ordering Provider/Ordering MD: Annel Smith MD Date of Service: 09/05/21 Procedure(s): CT chest abd pel wo con Accession Number(s): [id number] Report Number: [id number] PROCEDURE INFORMATION: Exam: CT Chest Without Contrast; Diagnostic Exam date and time: 09/05/2021 10:00 PM Age: 66 years old Clinical indication: Injury or trauma; Generalized; Blunt trauma (contusions or hematomas); Injury details: Fell off horse x today. Back pain; Additional info: Rule out other trauma TECHNIQUE: Imaging protocol: Diagnostic computed tomography of the chest without contrast. Radiation optimization: All CT scans at this facility use at least one of these dose optimization techniques: automated exposure control; mA and/or kV adjustment per patient size (includes targeted exams where dose is matched to clinical indication); or iterative reconstruction. COMPARISON: CT angio abdomen pelvis [id number] 05/04/2020 8:31 AM RADIATION DOSE METRICS: Total DLP (mGy-cm): 1701.63 FINDINGS: Lungs: Unremarkable. No consolidation. No masses. Pleural spaces: Unremarkable. No pneumothorax. No pleural effusion. Heart: Unremarkable. No cardiomegaly. No pericardial effusion. Aorta: Unremarkable. No aortic aneurysm. Lymph nodes: Unremarkable. No enlarged lymph nodes. Bones/joints: Unremarkable. No acute fracture. Soft tissues: Unremarkable. IMPRESSION: No acute findings. PROCEDURE INFORMATION: Exam: CT Abdomen And Pelvis Without Contrast Exam date and time: 09/05/2021 10:00 PM Age: 66 years old Clinical indication: Injury or trauma; Generalized; Blunt trauma (contusions or hematomas); Injury details: Fell off horse x today. Back pain; Additional info: Rule out other trauma TECHNIQUE: Imaging protocol: Computed tomography of the abdomen and pelvis without contrast. Radiation optimization: All CT scans at this facility use at least one of these dose optimization techniques: automated exposure control; mA and/or kV adjustment per patient size (includes targeted exams where dose is matched to clinical indication); or iterative reconstruction. COMPARISON: CT angio abdomen pelvis [id number] 05/04/2020 8:31 AM RADIATION DOSE METRICS: Total DLP (mGy-cm): 1701.63 FINDINGS: Liver: Normal. No mass. Gallbladder and bile ducts: Normal. No calcified stones. No ductal dilation. Pancreas: Normal. No ductal dilation. Spleen: Normal. No splenomegaly. Adrenal glands: Normal. No mass. Kidneys and ureters: Incidental finding of simple right renal sinus cysts. No renal injury. Small nonobstructing right renal lower pole stone. Small simple left renal upper pole cortical cyst. No dedicated follow-up recommended. Stomach and bowel: Diverticulosis coli. No inflammatory bowel wall thickening. No focal bowel wall mass. Negative for bowel obstruction or perforation. Appendix: No evidence of appendicitis. Intraperitoneal space: Unremarkable. No free air. No significant fluid collection. Vasculature: Scattered atherosclerosis of abdominal aorta. Mild ectasia of the mid abdominal aorta segment measuring 2.5 cm greatest transverse diameter. Lymph nodes: Unremarkable. No enlarged lymph nodes. Urinary bladder: Unremarkable as visualized. Reproductive: Unremarkable positioning of an intrauterine device. No uterine enlargement. No adnexal enlargement. Bones/joints: Vertebral compression fracture of L1 with mildly comminuted anterior superior vertebral endplate. No fracture extension into the posterior elements. Unremarkable lumbar spine alignment. Soft tissues: No significant lumbar paraspinal soft tissue hematoma. CT/CT chest abd pel wo con IMPRESSION: 1. Acute L1 vertebral fracture. 2. No acute abdominopelvic soft tissue injury. COMMENTS: Consistent with the [employer]'s Incidental Findings Committee white paper (J Am Dontrell Radiol 2018): Any incidental renal lesion less than 1 cm or classified as too small to characterize, or any incidental cystic renal lesion characterized as simple-appearing, is likely benign. No follow-up imaging is recommended for these lesions per consensus recommendations based on imaging criteria. Radiation Dose CTDIVOL = (mGy): DLP = 1701.63~1701.63 (mGy-cm) Dictated By:Adelaide Messer By:Adelaide Messer Date/Time:09/05/212238DD/ 99 [facility] [place], [place] [address]CD Scan ReportSigned Patient: Barbara Edwards #: [id number]: 4Acct#:[id number]/Sex: 66 / FADM Date: 09/05/21Loc: ERRoom/Bed:Attending Dr: Ordering Provider/Ordering MD: Annel Smith MD Date of Service: 09/05/21 Procedure(s): CT cervical spin wo con* [id number] Accession Number(s): [id number] Report Number: [id number] PROCEDURE INFORMATION: Exam: CT Cervical Spine Without Contrast Exam date and time: 09/05/2021 10:00 PM Age: 66 years old Clinical indication: Injury or trauma; Other: Fall off horse; Blunt trauma; Additional info: Rule out other injuries TECHNIQUE: Imaging protocol: Computed tomography images of the cervical spine without contrast. Radiation optimization: All CT scans at this facility use at least one of these dose optimization techniques: automated exposure control; mA and/or kV adjustment per patient size (includes targeted exams where dose is matched to clinical indication); or iterative reconstruction. COMPARISON: CT head wo con* [id number] 09/05/2021 10:15 PM RADIATION DOSE METRICS: Total DLP (mGy-cm): 780.15 FINDINGS: Vertebrae: No acute fracture. Normal alignment. The cervical spine demonstrates moderate degenerative changes at multiple levels. C2-C3: No significant disc protrusion. No severe spinal canal stenosis. No significant neural foraminal narrowing. C3-C4: No significant disc protrusion. No severe spinal canal stenosis. No significant neural foraminal narrowing. C4-C5: No significant disc protrusion. No severe spinal canal stenosis. No significant neural foraminal narrowing. C5-C6: No significant disc protrusion. No severe spinal canal stenosis. No significant neural foraminal narrowing. C6-C7: No significant disc protrusion. No severe spinal canal stenosis. No significant neural foraminal narrowing. C7-T1: No significant disc protrusion. No severe spinal canal stenosis. No significant neural foraminal narrowing. Soft tissues: Unremarkable. Lungs: Lung apices are normal. CT/CT cervical spin wo con* [id number] IMPRESSION: No acute findings. Radiation Dose CTDIVOL = (mGy): DLP = 780.15 (mGy-cm) Dictated By:Dev MesserinSigned By:Dev MesserinSbernice Date/Time:09/05/21 2232DD/ [address] [facility] [place], [place] [address]HY Scan ReportSigned Patient: Barbara Edwards #: [id number]: 1955cct#:[id number]/Sex: 66 / FADM Date: 09/05/21Loc: ERRoom/Bed:Attending Dr: Ordering Provider/Ordering MD: Deng Ernandez NP Date of Service: 09/05/21 Procedure(s): CT lumbar spine wo con* [id number] Accession Number(s): [id number] Report Number: [id number] PROCEDURE INFORMATION: Exam: CT Lumbar Spine Without Contrast Exam date and time: 09/05/2021 9:06 PM Age: 66 years old Clinical indication: Injury or trauma; Other: Bucked off horse; Blunt trauma (contusions or hematomas); Additional info: Compression FX l2 TECHNIQUE: Imaging protocol: Computed tomography images of the lumbar spine without contrast. Radiation optimization: All CT scans at this facility use at least one of these dose optimization techniques: automated exposure control; mA and/or kV adjustment per patient size (includes targeted exams where dose is matched to clinical indication); or iterative reconstruction. COMPARISON: CR XR lumbar spine 2-3V* [id number] 09/05/2021 7:58 PM RADIATION DOSE METRICS: Total DLP (mGy-cm): 7.16 FINDINGS: Vertebrae: L1 vertebral compression fracture. There is anterior vertebral body wedging and mild comminution of the anterior superior vertebral endplate. There is height loss around 25%. No fracture extension into the posterior elements. Lumbar spinal alignment is anatomic. Transitional lumbar vertebral anatomy is present. The posterior elements of L5 are sacralized. L1-L2: No significant disc protrusion. No severe spinal canal stenosis. No significant neural foraminal narrowing. L2-L3: No significant disc protrusion. No severe spinal canal stenosis. No significant neural foraminal narrowing. L3-L4: Moderate sized broad-based posterior disc bulge. No significant foraminal stenosis or spinal canal stenosis. L4-L5: Moderate sized broad-based posterior disc bulge. No severe spinal canal stenosis. No significant neural foraminal narrowing. L5-S1: Moderate sized broad-based posterior disc bulge. No severe spinal canal stenosis. No significant neural foraminal narrowing. Kidneys and ureters: 13 mm simple left renal upper pole cortical cyst. Negative for hydronephrosis. Vasculature: Scattered abdominal aorta atherosclerosis. Mild ectasia of mid abdominal aortic segment measuring 2.5 cm transverse diameter. Soft tissues: No significant lumbar paraspinal soft tissue hematoma. CT/CT lumbar spine wo con* [id number] IMPRESSION: Acute L1 vertebral fracture. COMMENTS: Consistent with the [employer]'s Incidental Findings Committee white paper (J Am Dontrell Radiol 2018): Any incidental renal lesion less than 1 cm or classified as too small to characterize, or any incidental cystic renal lesion characterized as simple-appearing, is likely benign. No follow-up imaging is recommended for these lesions per consensus recommendations based on imaging criteria. Radiation Dose CTDIVOL = (mGy): DLP = 2077.16 (mGy-cm) Dictated By:Adelaide Messer By:Adelaide Messer Date/Time:09/05/21/ [address] [address]CGwu ReportSigned Patient: Barbara Edwards #: [id number]: 1955cct#:[id number]/Sex: 66 / FADM Date: 09/05/21Loc: ERRoom/Bed:Attending Dr: Ordering Provider/Ordering MD: Deng Ernandez NP Date of Service: 09/05/21 Procedure(s): XR pelvis 1-2V* [id number] Accession Number(s): [id number] Report Number: [id number] PROCEDURE INFORMATION: Exam: XR Pelvis Exam date and time: 09/05/2021 7:42 PM Age: 66 years old Clinical indication: Injury or trauma; Other: Fall from horse; Blunt trauma (contusions or hematomas); Does not apply; Pelvic region TECHNIQUE: Imaging protocol: XR pelvis. Views: 1 or 2 view. COMPARISON: CT angio abdomen pelvis [id number] 05/04/2020 8:31 AM FINDINGS: Bones/joints: Unremarkable. No acute fracture. Soft tissues: Unremarkable. XR/XR pelvis 1-2V* [id number] IMPRESSION: No acute findings. Radiation Dose CTDIVOL = (mGy): DLP = (mGy-cm) Dictated By:Adelaide Messer By:Adelaide Messer Date/Time:09/05/212109DD/ [address] [address]VGda ReportSigned Patient: Barbara Edwards #: [id number]: 4Acct#:[id number]/Sex: 66 / FADM Date: 09/05/21Loc: ERRoom/Bed:Attending Dr: Ordering Provider/Ordering MD: Deng Ernandez NP Date of Service: 09/05/21 Procedure(s): XR lumbar spine 2-3V* 82506 Accession Number(s): [id number] Report Number: [id number] PROCEDURE INFORMATION: Exam: XR Lumbosacral Spine Exam date and time: 09/05/2021 7:42 PM Age: 66 years old Clinical indication: Injury or trauma; Other: Fall off horse; Blunt trauma (contusions or hematomas) TECHNIQUE: Imaging protocol: XR of the lumbosacral spine. Views: 2 or 3 views. COMPARISON: CT kidney stone [id number] 10/18/2020 11:02 AM FINDINGS: Bones/joints: Superior endplate fracture with anterior vertebral body wedging of L1. 25% height loss. Transitional vertebral anatomy is noted. The L5 level is partially sacralized. Unremarkable lumbar spine alignment.The lumbar spine demonstrates moderate discogenic and apophyseal joint degenerative changes at multiple levels. Soft tissues: Unremarkable. Vasculature: Abdominal aorta atherosclerosis. XR/XR lumbar spine 2-3V* 23088 IMPRESSION: 1. L1 vertebral compression fracture. 2. Recommend MRI lumbar spine correlation. Radiation Dose CTDIVOL = (mGy): DLP = (mGy-cm) Dictated By:Adelaide Messer By:Adelaide Messer Date/Time:09/05/212109DD/ [address] [address]XMia ReportSigned Patient: Barbara Edwards #: [id number]: 4Acct#:[id number]/Sex: 66 / FADM Date: 09/05/21Loc: WPIRoom/Bed:Attending Dr: Jesus Peng [employer]GER-C Ordering Provider/Ordering MD: Jesus Peng APN Date of Service: 09/05/21 Procedure(s): XR shoulder LT min 2V* 69987 Accession Number(s): [id number] Report Number: [id number] WS: [id number] Left shoulder, 3 views, 09/05/2021 Clinical Data: M25.512 - Pain in left shoulder Comparison: None. Findings: No fractures or dislocations are seen. The AC joint is normal. The adjacent left clavicle, left scapula and ribs are normal. The soft tissues are unremarkable. XR/XR shoulder LT min 2V* [id number] Impression: Negative left shoulder. Dictated By:Swathi Livingston MDSigned By:Swathi Livingston MDSigned Date/Time:09/05/21 1126DD/ 1126 Discharge Plan Discharge Patient Disposition: Home Clinical Impression: Back pain, Closed compression fracture of L1 vertebra Condition: Stable Prescriptions: New acetaminophen 500 mg tablet 500 mg PO Q6H PRN (Reason: pain) 10 Days Qty: 40 RF: 0 lidocaine 5 % adhesive patch,medicated 1 patch topical DAILY PRN (Reason: pain) 10 Days Qty: 10 RF: 0 Biofreeze (menthol) 4 % gel 1 applic topical DAILY PRN (Reason: pain) 10 Days Qty: 89 RF: 0 No Action tramadol 50 mg tablet 50 mg PO TID PRN (Reason: pain) Qty: 40 RF: 0 cyclobenzaprine 10 mg tablet 10 mg PO TID PRN (Reason: muscle spasm) Qty: 40 RF: 0 atorvastatin 40 mg tablet 40 mg PO DAILY Qty: 90 RF: 1 meloxicam [Mobic] 7.5 mg tablet 7.5 mg PO DAILY Qty: 90 RF: 1 metoprolol succinate 50 mg tablet extended release 24 hr 25 mg PO Q12H Qty: 90 RF: 1 venlafaxine 75 mg capsule,extended release 24hr 75 mg PO .2 times day Qty: 180 RF: 1 metformin 500 mg tablet extended release 24 hr 500 mg PO BID Qty: 180 RF: 1 clonidine HCl 0.1 mg tablet 0.1 mg PO .at bedtime Qty: 90 RF: 1 Discharge Orders: Discharge ED (Routine); Ordered 09/05/21 Ordered By: Annel Smith Referrals: Jesus Peng, [employer]GER-[employer] [Primary Care Provider] - Patient Instructions: Vertebral Compression Fracture (ED) Activity Restrictions/Additional Instructions: Our case assistant will have you follow-up with Orthopedic spine provider in the next few days. You would be expected to have a phone call with our case assistant who will put you on the schedule. Come back to the emergency room if you notice any weakness in the legs, worsening back pain, or any new or concerning complaints. Please wear your brace for your cleared by the orthopedic provider. Coding Level of Care Code ED Information Assoc for [facility]
--- NOTE | 2021-09-05 22:00 | CTR_ITS ---
PROCEDURE INFORMATION: Exam: CT Head Without Contrast Exam date and time: 09/05/2021 10:00 PM Age: 66 years old Clinical indication: Injury or trauma; Blunt trauma (contusions or hematomas); Patient HX: Fall of horse; Additional info: Rule out other injuries TECHNIQUE: Imaging protocol: Computed tomography of the head without contrast. Radiation optimization: All CT scans at this facility use at least one of these dose optimization techniques: automated exposure control; mA and/or kV adjustment per patient size (includes targeted exams where dose is matched to clinical indication); or iterative reconstruction. COMPARISON: CT Sinus wo IV contrast* [id number] 04/20/2016 9:11 AM RADIATION DOSE METRICS: Total DLP (mGy-cm): 780.15 FINDINGS: Brain: Focal low-attenuation changes in the right basal ganglia external capsule area. Negative for intracranial hemorrhage. No space-occupying intracranial mass. No midline shift of the brain. Kaye matter and white matter interfaces are preserved. Cerebral ventricles: No ventriculomegaly. Paranasal sinuses: Visualized sinuses are unremarkable. No fluid levels. Mastoid air cells: Visualized mastoid air cells are well aerated. Orbital cavity: Symmetric orbits. Bones/joints: Unremarkable. No acute fracture. Soft tissues: Unremarkable. CT/CT head wo con* [id number] IMPRESSION: Negative for intracranial injury. Radiation Dose CTDIVOL = (mGy): DLP = 780.15 (mGy-cm)
--- NOTE | 2021-09-05 22:00 | CTR_ITS ---
PROCEDURE INFORMATION: Exam: CT Cervical Spine Without Contrast Exam date and time: 09/05/2021 10:00 PM Age: 66 years old Clinical indication: Injury or trauma; Other: Fall off horse; Blunt trauma; Additional info: Rule out other injuries TECHNIQUE: Imaging protocol: Computed tomography images of the cervical spine without contrast. Radiation optimization: All CT scans at this facility use at least one of these dose optimization techniques: automated exposure control; mA and/or kV adjustment per patient size (includes targeted exams where dose is matched to clinical indication); or iterative reconstruction. COMPARISON: CT head wo con* [id number] 09/05/2021 10:15 PM RADIATION DOSE METRICS: Total DLP (mGy-cm): 780.15 FINDINGS: Vertebrae: No acute fracture. Normal alignment. The cervical spine demonstrates moderate degenerative changes at multiple levels. C2-C3: No significant disc protrusion. No severe spinal canal stenosis. No significant neural foraminal narrowing. C3-C4: No significant disc protrusion. No severe spinal canal stenosis. No significant neural foraminal narrowing. C4-C5: No significant disc protrusion. No severe spinal canal stenosis. No significant neural foraminal narrowing. C5-C6: No significant disc protrusion. No severe spinal canal stenosis. No significant neural foraminal narrowing. C6-C7: No significant disc protrusion. No severe spinal canal stenosis. No significant neural foraminal narrowing. C7-T1: No significant disc protrusion. No severe spinal canal stenosis. No significant neural foraminal narrowing. Soft tissues: Unremarkable. Lungs: Lung apices are normal. CT/CT cervical spin wo con* [id number] IMPRESSION: No acute findings. Radiation Dose CTDIVOL = (mGy): DLP = 780.15 (mGy-cm)
--- NOTE | 2021-09-05 22:00 | CTR_ITS ---
PROCEDURE INFORMATION: Exam: CT Chest Without Contrast; Diagnostic Exam date and time: 09/05/2021 10:00 PM Age: 66 years old Clinical indication: Injury or trauma; Generalized; Blunt trauma (contusions or hematomas); Injury details: Fell off horse x today. Back pain; Additional info: Rule out other trauma TECHNIQUE: Imaging protocol: Diagnostic computed tomography of the chest without contrast. Radiation optimization: All CT scans at this facility use at least one of these dose optimization techniques: automated exposure control; mA and/or kV adjustment per patient size (includes targeted exams where dose is matched to clinical indication); or iterative reconstruction. COMPARISON: CT angio abdomen pelvis [id number] 05/04/2020 8:31 AM RADIATION DOSE METRICS: Total DLP (mGy-cm): 1701.63 FINDINGS: Lungs: Unremarkable. No consolidation. No masses. Pleural spaces: Unremarkable. No pneumothorax. No pleural effusion. Heart: Unremarkable. No cardiomegaly. No pericardial effusion. Aorta: Unremarkable. No aortic aneurysm. Lymph nodes: Unremarkable. No enlarged lymph nodes. Bones/joints: Unremarkable. No acute fracture. Soft tissues: Unremarkable. IMPRESSION: No acute findings. PROCEDURE INFORMATION: Exam: CT Abdomen And Pelvis Without Contrast Exam date and time: 09/05/2021 10:00 PM Age: 66 years old Clinical indication: Injury or trauma; Generalized; Blunt trauma (contusions or hematomas); Injury details: Fell off horse x today. Back pain; Additional info: Rule out other trauma TECHNIQUE: Imaging protocol: Computed tomography of the abdomen and pelvis without contrast. Radiation optimization: All CT scans at this facility use at least one of these dose optimization techniques: automated exposure control; mA and/or kV adjustment per patient size (includes targeted exams where dose is matched to clinical indication); or iterative reconstruction. COMPARISON: CT angio abdomen pelvis [id number] 05/04/2020 8:31 AM RADIATION DOSE METRICS: Total DLP (mGy-cm): 1701.63 FINDINGS: Liver: Normal. No mass. Gallbladder and bile ducts: Normal. No calcified stones. No ductal dilation. Pancreas: Normal. No ductal dilation. Spleen: Normal. No splenomegaly. Adrenal glands: Normal. No mass. Kidneys and ureters: Incidental finding of simple right renal sinus cysts. No renal injury. Small nonobstructing right renal lower pole stone. Small simple left renal upper pole cortical cyst. No dedicated follow-up recommended. Stomach and bowel: Diverticulosis coli. No inflammatory bowel wall thickening. No focal bowel wall mass. Negative for bowel obstruction or perforation. Appendix: No evidence of appendicitis. Intraperitoneal space: Unremarkable. No free air. No significant fluid collection. Vasculature: Scattered atherosclerosis of abdominal aorta. Mild ectasia of the mid abdominal aorta segment measuring 2.5 cm greatest transverse diameter. Lymph nodes: Unremarkable. No enlarged lymph nodes. Urinary bladder: Unremarkable as visualized. Reproductive: Unremarkable positioning of an intrauterine device. No uterine enlargement. No adnexal enlargement. Bones/joints: Vertebral compression fracture of L1 with mildly comminuted anterior superior vertebral endplate. No fracture extension into the posterior elements. Unremarkable lumbar spine alignment. Soft tissues: No significant lumbar paraspinal soft tissue hematoma. CT/CT chest abd pel wo con IMPRESSION: 1. Acute L1 vertebral fracture. 2. No acute abdominopelvic soft tissue injury. COMMENTS: Consistent with the [employer]'s Incidental Findings Committee white paper (J Am Dontrell Radiol 2018): Any incidental renal lesion less than 1 cm or classified as too small to characterize, or any incidental cystic renal lesion characterized as simple-appearing, is likely benign. No follow-up imaging is recommended for these lesions per consensus recommendations based on imaging criteria. Radiation Dose CTDIVOL = (mGy): DLP = 1701.63~1701.63 (mGy-cm)
[2021-09-05 22:35] VITALS: BP 138/100; PULSE 75; RESP 17; O2SAT 93
[2021-09-06] MEDS: oxyCODONE-APAP 5-325 mg Tablet 1 TAB PO (00:30)
[2021-09-06 00:42] VITALS: BP 139/64; PULSE 77; RESP 16; O2SAT 94
--- NOTE | 2021-09-06 09:37 | DCPLANNER ---
energy efficient site manager had message to schedule a follow up appointment for patient with ortho. energy efficient site manager called the ortho clinic, spoke with Emily, gave clinic patients information. energy efficient site manager was told that patients information would be printed and reviewed. Clinic will call patient with appointment information.
--- NOTE | 2021-10-12 15:04 | DCPLANNER ---
Patient had a follow up appointment scheduled with ortho - patient did attend appointment.
== END 2021-09-06 00:44 | disposition home or self-care (01) ==
PROVIDERS: Emergency Provider Emergency Medicine; PCP Nurse Practitioner
DX: S32.019A Unspecified fracture of first lumbar vertebra, initial encounter for closed fracture (principal); Z79.84 Long term (current) use of oral hypoglycemic drugs; E11.9 Type 2 diabetes mellitus without complications; I10 Essential (primary) hypertension; E78.2 Mixed hyperlipidemia; V80.010A Animal-rider injured by fall from or being thrown from horse in noncollision accident, initial encounter
CPT/HCPCS: 70450; 71250; 72100; 72125; 72131; 72170; 74176; 99283

== ENCOUNTER → 2021-09-07 16:20 | Outpatient (BNVA) | payer MEDICARE, OTHER, SELFPAY | PROVIDERS: PCP Nurse Practitioner; Referring Provider Emergency Medicine; Visit Provider Physician Assistant | DX: S32.010A Wedge compression fracture of first lumbar vertebra, initial encounter for closed fracture (principal); X58.XXXA Exposure to other specified factors, initial encounter | CPT/HCPCS: 87635 ==

== ENCOUNTER → 2021-09-08 00:01 | Outpatient (BNVA) | payer MEDICARE, OTHER, SELFPAY | PROVIDERS: PCP Nurse Practitioner; Referring Provider Emergency Medicine; Visit Provider Physician Assistant | DX: S32.010A Wedge compression fracture of first lumbar vertebra, initial encounter for closed fracture (principal); X58.XXXA Exposure to other specified factors, initial encounter; Z20.822 Contact with and (suspected) exposure to COVID-19 | CPT/HCPCS: 87635 ==

== ENCOUNTER 2021-09-13 05:44 | Day surgery (SDC) | payer MEDICARE, SELFPAY ==
--- NOTE | 2021-09-12 12:12 | P.ANESASSM_ITS ---
Pre-Anesthetic Assessment Pre-Anesthetic Assessment: Height/Weight: Height 1.7 m Preop Diagnosis: Right distal ureteral stone Proposed Procedure: Operation Date: 09/13/21 07:00 Proposed Procedures p Kyphoplasty L1 45591 S32.010A(Not Applicable) - Kyle Kapadia, DO Familial anesthetic complications: none Social: Social History: No alcohol and No tobacco Exam: Pre-Anes Outpt Exam: alert, oriented x 3, clear to auscultation bilaterally and regular rate & rhythm Airway: MP: 1 Dentition: Chipped CV/HEM: CV/HEM: HTN Comments: tachycardia s/p ablationn, no issues since (10 years ago) AAA Hepatic: Comments: fatty liver GI: GI: Hiatus hernia Metabolic: Metabolic: DM Anesthetic Plan: ASA status: 3 Anesthesia: General Risk of > 500 ml blood loss (7ml/kg in children): No PFSH Anesthesia PFSH: Medical History AAA (abdominal aortic aneurysm) 2.3cm 2017 2.4cm 05/04/2020 Anxiety, generalized Bilateral renal cysts 05/04/2020 Controlled diabetes mellitus Diverticula of colon Hiatal hernia HTN, goal below 130/80 Mixed hyperlipidemia Nonalcoholic fatty liver disease Right ureteral stone Surgical History 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 finger History of cardiac radiofrequency ablation 2007 at [facility] Family History Other Herpes zoster Denies family history of Bleeding disorder Social History Second hand smoke exposure: No Smoking risk assessment/counseling performed?: No Alcohol intake: never Desire information about alcohol rehabilitation?: No Counseling given: No Desire information about substance/drug rehabilitation?: No Counseling given: No Adopted: No Caregiver/support person: No Lives independently: Yes Household members: spouse Housing: House Marital status: Number of children: 2 Number of grandchildren: 8 Highest education level completed: Associate Degree: Academic Program service: No Current occupational status: retired Pets and animals: Yes History of recent travel: No Current gender identity: Female Female Reproductive History: Date of last menstrual period: 02/23/21 Data Anesthesia Cardiac Studies: No Data to Display
[2021-09-12 12:23] LABS: Basophils % 0.5 %; Eosinophils # 0.1 10^3/uL (0.0-0.8); Eosinophils % 1.4 %; Hematocrit 44.4 % (37.0-47.0); Hemoglobin 14.6 g/dL (11.5-15.3); Lymphocytes # 1.7 10^3/uL (0.8-4.8); Lymphocytes % 24.8 %; Mean Corpuscular HGB Conc 32.9 g/dL (30.0-36.0); Mean Corpuscular Hemoglobin 32.1 pg (28.0-34.0); Mean Corpuscular Volume 97.6 fl (81-99); Mean Platelet Volume 10.6 fL (7.4-10.4); Monocytes # 0.8 10^3/uL (0.2-0.9); Monocytes % 12.3 %; Neutrophils # 4.04 10^3/uL (1.8-7.7); Neutrophils % 60.7 %; Nucleated Red Blood Cells % 0 %; Platelet Count 206 10^3/cmm (130-400); Red Blood Count 4.55 10^6/uL (4.1-5.3); Red Cell Distribution Width 12.1 % (12.1-15.1); White Blood Count 6.7 10^3/uL (4.0-10.0)
[2021-09-13] VITALS (7 sets, daily range): BP systolic 105–170; BP diastolic 59–81; PULSE 67–76; RESP 16–23; TEMP 36.2–36.6; O2SAT 91–98
--- NOTE | 2021-09-13 | SCC_ITS ---
Procedure Done: L1 Kyphoplasty 74 seconds of fluoroscopic guidance, for a cumulative dose of 41.25 mGy, was provided to Dr. Kapadia by the radiology department. C-arm images of the lumbar spine were saved for the patient's permanent record. [facility]
--- NOTE | 2021-09-13 05:48 | SC_ITS ---
WS: [id number] Exam: C-arm FL for Kyphoplasty Date/Time of Exam: 09/13/2021 5:48 AM Reason For Exam: L 1 Kyphoplasty PA and lateral C-arm images of the upper lumbar spine are submitted for evaluation. There are signs of L1 kyphoplasty with methylmethacrylate injection into the L1 vertebral body. Again noted is compression deformity of the upper plate of L1. SC/C-arm FL for Kyphoplasty IMPRESSION: 1. L1 kyphoplasty as noted above.
[2021-09-13 06:09] LABS: Glucose Point of Care 99 mg/dL (70-110)
--- NOTE | 2021-09-13 06:36 | P.ANESUD_ITS ---
Pre-Anesthetic Update Pre-Anesthetic Assessment: Date of Surgery/Procedure: 09/13/21 Preop Maritza gnosis: Lumbar Compression Fracture Proposed Procedure: Operation Date: 09/13/21 07:00 Proposed Procedures p Kyphoplasty L1 07899 S32.010A(Not Applicable) - Kyle Kapadia, DO Any changes to Pre-Anesthetic Assessment?: No Last Intake: Intake Last Liquid Date 09/12/21 Last Liquid Time 21:00 Last Solid Date 09/12/21 Last Solid Time 21:00 Labs Last 48hrs: Laboratory Results - last 48 hr 09/12/21 09/13/21 12:05 06:06 WBC 6.7 RBC 4.55 Hgb 14.6 Hct 44.4 MCV 97.6 MCH 32.1 MCHC 32.9 RDW 12.1 Plt Count 206 MPV 10.6 H Neut % (Auto) 60.7 Lymph % (Auto) 24.8 Benzie % (Auto) 12.3 Eos % (Auto) 1.4 Baso % (Auto) 0.5 Neut # (Auto) 4.04 Lymph # (Auto) 1.7 Benzie # (Auto) 0.8 Eos # (Auto) 0.1 Baso # (Auto) 0.0 Nucleated RBC % (a uto) 0 Nucleated RBCs # 0.0 POC Glucose 99 Vitals: Oxygen Delivery Me thod 09/13/21 06:08 Exam: Pre-Anes Outpt Exam: alert, oriented x 3, clear to auscultation bilaterally and regular rate & rhythm Cardiac Studies: No Data to Display
--- NOTE | 2021-09-13 06:44 | W.PM.OPSUD ---
Surgery/Procedure H&P Update DATE OF PROCEDURE: September 13, 2021 DATE H&P PERFORMED: 09/07/21 H&P UPDATE INFORMATION: I have reviewed H&P completed within last 30 days, I have examined patient prior to procedure and No changes to prior documentation PREOP DIAGNOSIS: Lumbar Compression Fracture PLANNED PROCEDURE: Operation Date: 09/13/21 07:00 Proposed Procedures p Kyphoplasty L1 89059 S32.010A(Not Applicable) - Kyle Kapadia DO
[2021-09-13] MEDS: sodium chloride 0.9% 1,000 ML 30 ML IV (06:50)
[2021-09-13] MEDS: iohexol 300 mg/mL 50 mL Btl (OR ONLY) XX (07:34)
--- NOTE | 2021-09-13 08:05 | PM.OP ---
Operative Report Date of procedure: September 13, 2021 Pre-op Diagnosis: Lumbar Compression Fracture Post-op diagnosis: same Procedure Done: L1 Kyphoplasty Surgeon: Kyle Kapadia Anesthesia: General Estimated blood loss (mL): 5 Condition: stable Disposition: PACU Procedure: Patient had a L1 kyphoplasty done. Patient was brought to the operative suite placed in the prone position. All areas impingement well-padded. AP and lateral fluoroscopy were brought into the room and the L1 compression fracture was identified. Pedicles were identified. Endplates were identified. A starting awl was inserted at the 10 o'clock position of the pedicle on the left side and the 2 o'clock position on the right side. The drill was then brought to the far border wall. Anteriorly. Bilaterally. And then the balloons were inflated. And then the cement was placed under C-arm guidance. To ensure that the body is filled with cement. Once the cement was hardened the tubes were removed and AP lateral fluoroscopy ensured that the cement was in good position. Wounds irrigated and closed with nylon stitch and sterile dressings applied and patient transferred to the PACU in stable condition.
--- NOTE | 2021-09-13 08:26 | SUR.PHASEI ---
PT TO OPS AWAKE ALERT DENIES PAIN AND NAUSEA. PT ASSISTED WITH LOG ROLL DRESSING TO BACK D/I HANDOFF AT BEDSIDE, PT TAKING ICE CHIPS WITHOUT DIFFICULTY.
[2021-09-13] MEDS: HYDROcodone-acetaminophen 5-325 mg Tablet 1 TAB PO (08:41)
--- NOTE | 2021-09-13 15:03 | ANE.PACU2 ---
Inpatient post-anesthesia follow up: Airway intact: Yes Vital signs: Temperature 97.8 F Pulse Rate 68 Respiratory Rate 17 Blood Pressure 143/66 Pulse Oximetry 94 Oxygen Delivery Me thod Room Air Oxygen Flow Rate 6 Fraction of Inspir ed Oxygen Hydration adequate: Yes Nausea and vomiting: No Pain level: 2 Mental status: Baseline
== END 2021-09-13 09:15 | disposition home or self-care (01) ==
PROVIDERS: PCP Nurse Practitioner; Visit Provider Orthopaedic Surgery
PROC: (CPT 22514; principal; 2021-09-13 07:00)
DX: S32.010A Wedge compression fracture of first lumbar vertebra, initial encounter for closed fracture (principal); X58.XXXA Exposure to other specified factors, initial encounter; I10 Essential (primary) hypertension; E78.2 Mixed hyperlipidemia; E11.9 Type 2 diabetes mellitus without complications
CPT/HCPCS: 22514; 36416; 76000; 82962; 85025; J0690; J2370; J2405; J2704; J2710; J3010; J3490; J7030

== ENCOUNTER 2021-11-14 11:59 | Outpatient (RCR) | payer MEDICARE, OTHER, SELFPAY | END 2021-12-01 23:59 | disposition home or self-care (01) | LOC: SPT 11:59 | PROVIDERS: PCP Nurse Practitioner; Referring Provider Physician Assistant; Visit Provider Physician Assistant | DX: Z48.89 Encounter for other specified surgical aftercare (principal) | CPT/HCPCS: 97110; 97161 ==

== ENCOUNTER 2021-12-02 06:00 | Outpatient (RCR) | payer MEDICARE, OTHER, SELFPAY | END 2022-01-01 23:59 | disposition home or self-care (01) | LOC: SPT 06:00 | PROVIDERS: PCP Nurse Practitioner; Referring Provider Physician Assistant; Visit Provider Physician Assistant | DX: Z47.89 Encounter for other orthopedic aftercare (principal) | CPT/HCPCS: 97110 ==

== ENCOUNTER → 2022-01-09 10:42 | Outpatient (BNVA) | payer MEDICARE, OTHER, SELFPAY | PROVIDERS: PCP Nurse Practitioner; Visit Provider Nurse Practitioner | DX: M19.072 Primary osteoarthritis, left ankle and foot (principal) | CPT/HCPCS: 73630 ==

== ENCOUNTER → 2022-02-06 09:07 | Outpatient (BNVA) | payer MEDICARE, OTHER, SELFPAY | PROVIDERS: PCP Nurse Practitioner; Visit Provider Nurse Practitioner | DX: E11.9 Type 2 diabetes mellitus without complications (principal) | CPT/HCPCS: 81000 ==

== ENCOUNTER → 2022-02-07 08:58 | Outpatient (BNVA) | payer MEDICARE, OTHER, SELFPAY | PROVIDERS: PCP Nurse Practitioner; Visit Provider Nurse Practitioner | DX: E11.9 Type 2 diabetes mellitus without complications (principal) | CPT/HCPCS: 80053; 80061; 83036; 84443; 85025 ==

== ENCOUNTER 2022-03-06 10:45 | Outpatient (CLI) | payer MEDICARE, OTHER, SELFPAY ==
--- NOTE | 2022-03-06 10:57 | MM_ITS ---
WS: [id number] BILATERAL SCREENING 3D TOMOSYNTHESIS DIGITAL MAMMOGRAM WITH CAD HISTORY: Z12.39 - Encounter for other screening for malignant neoplasm. COMPARISON: 01/27/2021 and Bilateral CC and MLO views submitted. Computer aided detection analyzed. Breast composition: There are scattered areas of fibroglandular density. No suspicious masses, microc alcifications or architectural distortion. MM/[place] [id number] IMPRESSION: BI-RADS: 1-Negative FOLLOW UP: 1 Year Follow-up
== END 2022-03-06 10:46 | disposition home or self-care (01) ==
LOC: RAD 10:48
PROVIDERS: PCP Nurse Practitioner; Visit Provider Nurse Practitioner
DX: Z12.31 Encounter for screening mammogram for malignant neoplasm of breast (principal)
CPT/HCPCS: 77063; 77067

== ENCOUNTER → 2022-03-12 09:10 | Outpatient (BNVA) | payer MEDICARE, OTHER, SELFPAY | PROVIDERS: PCP Nurse Practitioner; Referring Provider Nurse Practitioner; Visit Provider Podiatrist Foot & Ankle Surgery | DX: M65.9 Synovitis and tenosynovitis, unspecified (principal); S96.12 Laceration of muscle and tendon of long extensor muscle of toe at ankle and foot level; W45.8XXS Other foreign body or object entering through skin, sequela | CPT/HCPCS: 73630; 99204 ==

== ENCOUNTER 2022-04-27 06:51 | Outpatient (CLI) | payer MEDICARE, SELFPAY ==
--- NOTE | 2022-04-27 07:15 | MR_ITS ---
WS: [id number] MRI LEFT FOOT without CONTRAST. COMPARISON: LEFT foot radiograph 03/12/2022 Multiplanar, multisequence imaging is performed without contrast. Abnormal signal and loss of the normal tendon involving the extensor hallucis longus at the level of the first cuneiform. There is a short segment with loss of the normal extensor hallucis longus tendon and soft tissue abnormal signal. Over the distal first metatarsal the tendon reappears and is normal size. There is only a small amount of edema and increased T2 signal in the extensor hallucis longus tendon and the sheath. The Achilles tendon is normal. Normal appearance of the peroneus brevis and longus tendons. The remai miky tendons are normal. Mild osteoarthritic changes at the first metatarsophalangeal joint. Small amount of edema in the diane cular. MR/MR foot LT wo con* [id number] IMPRESSION: 1. High-grade and likely complete tear involving the extensor hallucis longus tendon at the level of the first cuneiform. This is also the area of pain and a bnormal signal. The tendon becomes more normal distally over the first metatars al. 2. Mild osteoarthritic changes at the first metatarsophalangeal joint.
== END 2022-04-27 06:52 | disposition home or self-care (01) ==
PROVIDERS: PCP Nurse Practitioner; Visit Provider Podiatrist Foot & Ankle Surgery
DX: S96.819A Strain of other specified muscles and tendons at ankle and foot level, unspecified foot, initial encounter (principal); S96.822A Laceration of other specified muscles and tendons at ankle and foot level, left foot, initial encounter; S96.122A Laceration of muscle and tendon of long extensor muscle of toe at ankle and foot level, left foot, initial encounter; X58.XXXA Exposure to other specified factors, initial encounter; M19.072 Primary osteoarthritis, left ankle and foot
CPT/HCPCS: 73718

== ENCOUNTER → 2022-05-01 08:05 | Outpatient (BNVA) | payer MEDICARE, SELFPAY | PROVIDERS: PCP Nurse Practitioner; Visit Provider Podiatrist Foot & Ankle Surgery | DX: M65.9 Synovitis and tenosynovitis, unspecified (principal); S96.12 Laceration of muscle and tendon of long extensor muscle of toe at ankle and foot level; W19.XXXS Unspecified fall, sequela; M79.672 Pain in left foot; I10 Essential (primary) hypertension | CPT/HCPCS: 99214; 99215 ==

== ENCOUNTER 2022-05-04 07:57 | Day surgery (SDC) | payer MEDICARE, SELFPAY ==
[2022-05-03 09:32] VITALS: BMI 29.0
[2022-05-04] VITALS (7 sets, daily range): BP systolic 113–160; BP diastolic 67–91; PULSE 66–75; RESP 14–18; TEMP 36.1–36.7; O2SAT 93–99
[2022-05-04 09:14] LABS: Glucose Point of Care 109 mg/dL (70-110)
[2022-05-04] MEDS: gabapentin 300 mg Capsule PO (09:17)
[2022-05-04] MEDS: CELEcoxib 200 mg Capsule 400 MG PO (09:18)
[2022-05-04] MEDS: sodium chloride 0.9% 1,000 ML 30 ML IV (09:18)
--- NOTE | 2022-05-04 09:21 | W.PM.OPSUD ---
Surgery/Procedure H&P Update DATE OF PROCEDURE: May 04, 2022 DATE H&P PERFORMED: 05/01/22 CHANGES TO PREVIOUS DOCUMENTATION: None PREOP DIAGNOSIS: Left extensor tendon rupture. Left extensor tenosynovitis. PLANNED PROCEDURE: Operation Date: 05/04/22 09:25 Proposed Procedures p extensor tendon repair &tenolysis left foot [id number]/03597/m65.9/s96.129a(Left) - Scar Pineda DPM
--- NOTE | 2022-05-04 09:40 | ANES.PREANE2 ---
Pre-Anesthetic Assessment Height/Weight: Height 1.7 m Weight 83.915 kg Temp Pulse Resp BP Pulse Ox 98.0 F 75 16 160/91 95 05/04/22 08:35 05/04/22 08:35 05/04/22 08:35 05/04/22 08:35 05/04/22 08:35 Preop Diagnosis: Left extensor tendon rupture. Left extensor tenosynovitis. Operation Date: 05/04/22 09:25 Proposed Procedures p extensor tendon repair &tenolysis left foot [id number]/26730/m65.9/s96.129a(Left) - Scar Pineda DPM Familial anesthetic complications: none Was Beta Sylvie taken within 24 hours: Yes Was Clonidine taken within 24 hours: N/A Last intake: Intake Last Liquid Date 05/03/22 Last Liquid Time 22:00 Last Solid Date 05/03/22 Last Solid Time 19:00 Social No alcohol and No tobacco Exam alert, oriented x 3, clear to auscultation bilaterally and regular rate & rhythm Airway Submandibular: within normal limits Cervical ROM: within normal limits Mallampati: Class II Dentition: chipped Pulmonary None reported CV/HEM Hypertension Hx of AAA Renal calculi Hepatic [facility] Gastroesophageal Reflux Disease and Hiatal Hernia Metabolic Diabetes Mellitus Musc/skel Lower Back Pain and Osteoarthritis/DJD Chronic pain left heal Anesthetic Plan ASA status: 3 (66 year old female ) Anesthesia: Anesthesia Evaluation, General and MAC Other: I discussed with the patient risks, goals, and benefits of MAC and general anesthesia. We discussed spectrum of MAC anesthesia including conversion to general as well as possibility of recall of intraoperative stimuli including discomfort/pain. Patient agrees to proceed with MAC. Risk of > 500 ml blood loss (7ml/kg in children): No Medications/Allergies Home Medications Medication Instructions Recorded Confirmed Last Taken Type atorvastatin 40 mg tablet 40 mg PO DAILY #90 tab 02/06/22 05/04/22 05/03/22 08:00 Rx metformin 500 mg tablet,extended 500 mg PO BID #180 tab 02/06/22 05/04/22 05/03/22 08:00 Rx release 24 hr venlafaxine 75 mg capsule,extended 75 mg PO .2 times day #180 cap 02/06/22 05/04/22 05/03/22 20:00 Rx release 24 hr metoprolol succinate 50 mg 25 mg PO DAILY tab 05/01/22 05/04/22 05/03/22 19:00 History tablet,extended release 24 hr hydrocodone 7.5 mg-acetaminophen 1 tab PO Q6H PRN 7 Days #28 tab 05/04/22 Unknown Rx 325 mg tablet Allergies Allergy/AdvReac Type Severity Reaction Status Date / Time No Known Allergies Allergy Verified 05/03/22 09:31 Current Medications Generic Name Dose Route Start Last Admin Trade Name Freq PRN Reason Stop Dose Admin Sodium Chloride 1,000 mls @ 30 mls/hr 05/04/22 08:15 05/04/22 09:18 Sodium Chloride 0.9% IV 05/05/22 08:14 30 mls/hr .Q24H PRETTY Administration PFSH Anesthesia Medical History AAA (abdominal aortic aneurysm) 2.3cm 2017 2.4cm 05/04/2020 Anxiety, generalized Bilateral renal cysts 05/04/2020 Controlled diabetes mellitus Diverticula of colon Hiatal hernia HTN, goal below 130/80 Mixed hyperlipidemia Nonalcoholic fatty liver disease Right ureteral stone Surgical History 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 finger History of cardiac radiofrequency ablation 2007 at [facility] History of kyphoplasty September 13, 2021 Family History Other Herpes zoster Denies family history of Bleeding disorder Social History Smoking and tobacco status: never smoked Second hand smoke exposure: No Smoking risk assessment/counseling performed?: No Alcohol intake: never Desire information about alcohol rehabilitation?: No Counseling given: No Desire information about substance/drug rehabilitation?: No Counseling given: No Adopted: No Caregiver/support person: No Lives independently: Yes Household members: spouse Housing: House Marital status: Number of children: 2 Number of grandchildren: 8 Highest education level completed: Associate Degree: Academic Program service: No Current occupational status: retired Pets and animals: Yes History of recent travel: No Current gender identity: Female Data Anesthesia Cardiac Studies: No Data to Display
[2022-05-04] MEDS: lidocaine 2% INJ 20 mL 15 ML INJECTION (09:55)
--- NOTE | 2022-05-04 11:02 | PM.OP ---
Operative Report Date of procedure: May 04, 2022 Pre-op diagnosis: Left extensor tendon rupture. Left extensor tenosynovitis. Post-op diagnosis: Same Post-op findings: Completely ruptured extensor houses longus tendon to the left foot. Adhesions and synovitis to the extensor tendons to the dorsal aspect of the left foot including the extensor digitorum longus. Procedure done: Primary repair of ruptured extensor houses longus tendon left foot CPT code 52104. Extensor tenolysis left foot to the extensor digitorum longus CPT code 82907. Implants: #2 FiberWire, 2-0 Vicryl, 4-0 Vicryl, 4-0 nylon Specimens removed/disposition: None Pathology: None Surgeon: Scar Pineda D.P.M. Ground Crewman Aircraft Support: Shannan Estimated blood loss: 5 50 IV fluids: None Urine output: None Complications: None Findings: Complete rupture of the left extensor houses longus tendon and adhesions and tenosynovitis at the extensor digitorum longus left foot. Brief History: 66 year old female patient complains of left foot pain and to got over MRI Results.?Patient locates the dull achy and burning discomfort at the 1st mpj.?Patient states that she is unable to flex her metatarsals towards her like she does with her right. She states that a couple months ago she was laying in bed flexing her toes when she heard and felt a loud pop and the next morning she couldn't move the metatarsals on the left.?When she was a child she was riding her family raccoon dog and accidentally got cut by her father who was skinning a squirrel and suffered a accidental laceration to her left dorsal foot.?Decreased dorsiflexion at the left great toe with pain along the extensor tendon.? History of laceration as a child as above.? Recently with extreme plantarflexion she felt a pop while stretching in bed and has had lack of motion at the great toe since that time.? Has difficulty dorsiflexing her left great toe, attempts at dorsiflexion elicits pain along the extensor tendons.? Has difficulty walking without shoes.? Has difficulty getting a shoe on because the great toe folds under in plantarflexion when trying to get a shoe or boot on.? X-ray taken in clinic 03/12/2022 shows some arthrosis of the left first metatarsophalangeal joint with widening of the first metatarsal head, osteophytes and joint space narrowing more laterally.? This does not correlate to her area of pain.? Her pain is at the dorsal aspect of the left foot at the level of the intermediate medial cuneiforms on the extensor tendons.? This affects her daily activity.? MRI left foot shows complete tear of the extensor houses longus tendon at the level of the cuneiforms, also show significant tenosynovitis and adhesions at both ends without significant retraction.? Patient states that this tendon rupture has affected her quality of everyday life, has difficulty navigating steps.? Without shoes her great toe folds under her foot and causes her to fall.? She is experiencing overuse pains at the extensor tendons more laterally as result of the laceration at the EHL.? She would like to have this surgically repaired. Risks include pain, bleeding, numbness, infection, rerupture of the tendon, failure to repair tendon, excessive scarring, surgical site dehiscence, chronic numbness, swelling and need for further surgical intervention.? Patient is agreeable wishes to proceed, no guarantees written, expressed or implied. Procedure: Under mild sedation the patient was brought to the operating room and placed on the operating table in supine position. A timeout was performed. Anesthesia was then administered by the anesthesia service. Local anesthesia injected by myself left ankle block utilizing 30 cc of one-to-one mixture 1% lidocaine and 0.25% Marcaine plain. Well-padded pneumatic tourniquet applied to the left ankle. The left lower extremity was then scrubbed, prepped and draped utilizing normal aseptic technique. Left foot was then exanguinated with an Esmarch bandage and the tourniquet inflated to 250 mmHg. Attention was directed to the dorsal aspect of the left foot where the extensor houses longus tendon course was mapped out. Curvilinear incision was made directly over the anatomic space of the extensor houses longus tendon starting mid diaphysis of the first metatarsal dorsally of the left foot coursing proximally to the extensor retinaculum, incision was performed with a #15 blade with dissection carried down through subcutaneous tissue utilizing accommodation of blunt and sharp technique. Care was taken to retract and preserve neurovascular and tendinous structures. All bleeders were ligated and cauterized as necessary. Extensive tenosynovitis was debrided at the synovial sheath of the extensor houses longus tendon and the extensor houses longus tendon was identified and noted to have complete rupture with ends retracted approximately 2 cm. The incision was flushed with copious amounts of sterile saline solution. The extensor houses longus tendon was directly repaired utilizing #2 FiberWire and 2-0 Vicryl with excellent apposition and tension noted and functioned properly with range of motion at the first metatarsal phalangeal joint of the left foot. The incision was flushed with copious amounts of sterile saline solution. Attention was then directed to the extensor digitorum longus tendons just lateral to the extensor houses longus tendon and significant adhesions as well as tenosynovitis was appreciated along the course which was sharply debrided with pickups and a #15 blade, the extensor digitorum longus tendons were then mobilized providing a range of motion at the metatarsal phalangeal joints and improved motion and gliding appreciated at the extensor tendons. The incision was once again flushed with copious amounts of sterile saline solution. Synovial sheaths were closed utilizing 4-0 Vicryl. Extensor retinaculum closed utilizing 2-0 Vicryl and subcutaneous tissue closed utilizing 4-0 Vicryl with skin closure utilizing 4-0 nylon. The incision site was then dressed with Adaptic, sterile 4 x 4, Kerlix and Srini wrap followed by cam boot applied to the left lower extremity. Tourniquet was then deflated and a prompt hyperemic response was noted to the distal digits of the left foot. Patient tolerated the procedure well and was transferred to the PACU with vital signs stable and vascular status intact. Following a period of postoperative monitoring she will be discharged home may be weightbearing as tolerated with a cam boot. Will follow-up in podiatry clinic for her first dressing change next Saturday. Was provided my cell phone number to contact with any postoperative questions or concerns.
--- NOTE | 2022-05-04 11:50 | ANE.PACU2 ---
Inpatient post-anesthesia follow up: Airway intact: Yes Vital signs: Temperature 97.7 F Pulse Rate 70 Respiratory Rate 14 Blood Pressure 127/73 Pulse Oximetry 93 Oxygen Delivery Me thod Room Air Oxygen Flow Rate 2 Fraction of Inspir ed Oxygen Hydration adequate: Yes Nausea and vomiting: No Pain level: 1 Mental status: Baseline
== END 2022-05-04 12:25 | disposition home or self-care (01) ==
PROVIDERS: PCP Nurse Practitioner; Visit Provider Podiatrist Foot & Ankle Surgery
PROC: (CPT 28208; principal; 2022-05-04 09:15)
DX: S96.122A Laceration of muscle and tendon of long extensor muscle of toe at ankle and foot level, left foot, initial encounter (principal); X58.XXXA Exposure to other specified factors, initial encounter; I10 Essential (primary) hypertension; K21.9 Gastro-esophageal reflux disease without esophagitis; E11.9 Type 2 diabetes mellitus without complications; E78.2 Mixed hyperlipidemia; Z79.84 Long term (current) use of oral hypoglycemic drugs
CPT/HCPCS: 28208; 28225; 36416; 82962; J1100; J2405; J2704; J3010; J3490; J7030

== ENCOUNTER 2022-05-15 09:02 | Outpatient (CLI) | payer MEDICARE, SELFPAY ==
--- NOTE | 2022-05-15 09:09 | XRR_ITS ---
PROCEDURE INFORMATION: Exam: XR Abdomen Exam date and time: 05/15/2022 9:10 AM Age: 66 years old Clinical indication: Condition or disease; Kidney or ureter condition; Calculus (stone) in kidney; Additional info: Multiple renal calculi, kub @ ozh on 05/15/22 @ 8:15. Appt to follow TECHNIQUE: Imaging protocol: Radiologic exam of the abdomen. Views: Frontal supine view of the abdomen. 1 View. COMPARISON[place] [id number] 09/05/2021 10:20 PM FINDINGS: Gastrointestinal tract: Stool material throughout the abdomen with no obvious bowel obstruction or pneumatosis. Intraperitoneal space: Two views submitted. Most superior aspect of the abdomen is not included. Organs: Assessment of urinary calculus disease is limited due to obscuration by abdominal content. If there is a strong clinical concern, additional imaging such as CT may also be considered. Tiny ovoid right inferior pelvic calcification measuring 3 mm is likely phlebolith. Bones/joints: No acute findings. New findings of cemented vertebral plasty of previously noted L1 vertebral compression fracture. Other findings: A curvilinear density in the midline pelvic region is again noted suggesting an IUD. XR/XR KUB [id number] IMPRESSION: No acute findings. Other findings as above. Somewhat limited assessment of urinary tract calculi due to stool material.
== END 2022-05-15 09:03 | disposition home or self-care (01) ==
LOC: RAD 09:04
PROVIDERS: PCP Nurse Practitioner; Visit Provider Urology
DX: N20.0 Calculus of kidney (principal)
CPT/HCPCS: 74018; 99213

== ENCOUNTER → 2022-05-24 15:18 | Outpatient (BNVA) | payer MEDICARE, SELFPAY | PROVIDERS: PCP Nurse Practitioner; Visit Provider Podiatrist Foot & Ankle Surgery | DX: M65.9 Synovitis and tenosynovitis, unspecified (principal); S96.12 Laceration of muscle and tendon of long extensor muscle of toe at ankle and foot level; M79.672 Pain in left foot; X58.XXXS Exposure to other specified factors, sequela | CPT/HCPCS: 99024 ==

== ENCOUNTER → 2022-06-14 12:32 | Outpatient (BNVA) | payer MEDICARE, SELFPAY | PROVIDERS: PCP Nurse Practitioner; Visit Provider Podiatrist Foot & Ankle Surgery | DX: Z98.890 Other specified postprocedural states (principal) | CPT/HCPCS: 99024 ==

== ENCOUNTER → 2022-07-04 08:45 | Outpatient (BNVA) | payer MEDICARE, SELFPAY | PROVIDERS: PCP Nurse Practitioner; Visit Provider Nurse Practitioner | DX: E11.9 Type 2 diabetes mellitus without complications (principal); E78.2 Mixed hyperlipidemia | CPT/HCPCS: 80053; 80061; 83036 ==

== ENCOUNTER → 2022-08-16 15:18 | Outpatient (BNVA) | payer MEDICARE, SELFPAY | PROVIDERS: PCP Nurse Practitioner; Visit Provider Podiatrist Foot & Ankle Surgery | DX: Z98.890 Other specified postprocedural states (principal) | CPT/HCPCS: 99024 ==

== ENCOUNTER → 2022-12-04 08:40 | Outpatient (BNVA) | payer MEDICARE, SELFPAY | PROVIDERS: PCP Nurse Practitioner; Visit Provider Nurse Practitioner | DX: E78.2 Mixed hyperlipidemia (principal); E11.9 Type 2 diabetes mellitus without complications; I10 Essential (primary) hypertension; F41.1 Generalized anxiety disorder; E55.9 Vitamin D deficiency, unspecified | CPT/HCPCS: 80053; 80061; 82306; 83036 ==

== ENCOUNTER 2023-03-13 19:52 | Emergency (ER) | payer MEDICARE, SELFPAY ==
[2023-03-13 20:01] VITALS: BP 155/90; PULSE 78; RESP 16; TEMP 36.6; O2SAT 95; BMI 30.8
--- NOTE | 2023-03-13 21:58 | CTR_ITS ---
PROCEDURE INFORMATION: Exam: CT Head Without Contrast Exam date and time: 03/13/2023 10:28 PM Age: 67 years old Clinical indication: Injury or trauma; Fall; Blunt trauma (contusions or hematomas); Patient HX: Patient bucked off of horse this evening. C/O head, neck, RT clavicular, and RT chest wall/rib pain. Abrasion to forehead. ; Additional info: Fall from horse TECHNIQUE: Imaging protocol: Computed tomography of the head without contrast. Radiation optimization: All CT scans at this facility use at least one of these dose optimization techniques: automated exposure control; mA and/or kV adjustment per patient size (includes targeted exams where dose is matched to clinical indication); or iterative reconstruction. REPORTING DATA: Count of CT and Cardiac NM exams in prior 12 months: This patient has received 2 known CTs and 0 known cardiac nuclear medicine studies in the 12 months prior to the current study. COMPARISON: CT head wo con* [id number] 09/05/2021 10:15 PM RADIATION DOSE METRICS: Total DLP (mGy-cm): 1079.98 FINDINGS: Brain: Mild age appropriate atrophy and small vessel ischemic change. 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 No evidence of intracranial hemorrhage, mass effect, midline shift or extra-axial fluid collections. Midline structures are normal. Kaye-white matter differentiation is normal. Cerebral ventricles: No ventriculomegaly. Paranasal sinuses: Mucosal thickening in the ethmoid and maxillary sinuses. Mastoid air cells: Visualized mastoid air cells are well aerated. Bones/joints: Unremarkable. No acute fracture. Soft tissues: Unremarkable. CT/CT head wo con* [id number] IMPRESSION: No acute intracranial injury.
--- NOTE | 2023-03-13 21:58 | CTR_ITS ---
PROCEDURE INFORMATION: Exam: CT Chest Without Contrast; Diagnostic Exam date and time: 03/13/2023 10:34 PM Age: 67 years old Clinical indication: Injury or trauma; Fall; Blunt trauma (contusions or hematomas); Prior surgery; Surgery type: Kyphoplasty; Patient HX: Patient bucked off of horse this evening. C/O head, neck, RT clavicular, and RT chest wall/rib pain. Abrasion to forehead. History of aaa. ; Additional info: Fall from horse TECHNIQUE: Imaging protocol: Diagnostic computed tomography of the chest without contrast. Radiation optimization: All CT scans at this facility use at least one of these dose optimization techniques: automated exposure control; mA and/or kV adjustment per patient size (includes targeted exams where dose is matched to clinical indication); or iterative reconstruction. REPORTING DATA: Count of CT and Cardiac NM exams in prior 12 months: This patient has received 2 known CTs and 0 known cardiac nuclear medicine studies in the 12 months prior to the current study. COMPARISON: [place] [id number] 09/05/2021 10:20 PM RADIATION DOSE METRICS: Total DLP (mGy-cm): 543.29 FINDINGS: Lungs: Bibasilar atelectasis. Pleural spaces: Small right pneumothorax measuring 5.3 mm in thickness. Heart: Cardiomegaly. Coronary arteries: Coronary artery atherosclerotic calcifications. Lymph nodes: Unremarkable. No enlarged lymph nodes. Vasculature: Ascending thoracic aorta is dilated to 3.8 cm. Diaphragm: Small hiatal hernia. Liver: Hepatic steatosis. Hepatic steatosis. Bones/joints: Right midclavicular fracture with displacement. L1 vertebral body compression fracture with vertebroplasty changes appears chronic. Soft tissues: Right kidney cyst, negative for follow-up advised. CT/CT chest wo con [id number] IMPRESSION: 1. Small right pneumothorax measuring 5.3 mm in thickness. 2. Right midclavicular fracture with displacement. 3. L1 vertebral body compression fracture with vertebroplasty changes appears chronic. 4. Bibasilar atelectasis. 5. Hepatic steatosis. 6. Ascending thoracic aorta is dilated to 3.8 cm. 7. Cardiomegaly. 8. Coronary artery atherosclerotic calcifications. 9. Hepatic steatosis. 10. Small hiatal hernia. 11. Right kidney cyst, negative for follow-up advised.
--- NOTE | 2023-03-13 21:58 | CTR_ITS ---
PROCEDURE INFORMATION: Exam: CT Cervical Spine Without Contrast Exam date and time: 03/13/2023 10:31 PM Age: 67 years old Clinical indication: Injury or trauma; Fall; Blunt trauma; Patient HX: Patient bucked off of horse this evening. C/O head, neck, RT clavicular, and RT chest wall/rib pain. Abrasion to forehead. ; Additional info: Fall from horse TECHNIQUE: Imaging protocol: Computed tomography of the cervical spine without contrast. Radiation optimization: All CT scans at this facility use at least one of these dose optimization techniques: automated exposure control; mA and/or kV adjustment per patient size (includes targeted exams where dose is matched to clinical indication); or iterative reconstruction. REPORTING DATA: Count of CT and Cardiac NM exams in prior 12 months: This patient has received 2 known CTs and 0 known cardiac nuclear medicine studies in the 12 months prior to the current study. COMPARISON: CT cervical spin wo con* [id number] 09/05/2021 10:17 PM RADIATION DOSE METRICS: Total DLP (mGy-cm): 377.87 FINDINGS: Bones/joints: There are mild degenerative changes present. Normal alignment. No acute fractures. Lungs: There is a trace pneumothorax, less than 5%, at the posterior right lung apex. Soft tissues: Unremarkable. CT/CT cervical spin wo con* [id number] IMPRESSION: No acute spinal injury. Trace pneumothorax at the right lung apex.
--- NOTE | 2023-03-13 21:58 | XRR_ITS ---
PROCEDURE INFORMATION: Exam: XR Right Clavicle, Complete Exam date and time: 03/13/2023 10:04 PM Age: 67 years old Clinical indication: Pain; Shoulder; Right; Additional info: Fall from horse TECHNIQUE: Imaging protocol: Radiologic exam of the right clavicle. Complete exam. Views: Any number of views. COMPARISON: [place] [id number] 09/05/2021 10:20 PM FINDINGS: Bones/joints: Right midclavicular fracture with overlap of the fracture fragments. Moderate acromioclavicular joint osteoarthritis. Soft tissues: Normal. XR/[place] [id number] IMPRESSION: 1. Right midclavicular fracture with overlap of the fracture fragments. 2. Moderate acromioclavicular joint osteoarthritis.
--- NOTE | 2023-03-13 22:00 | ED_ITS ---
HPI - Fall General: Chief Complaint: Fall Stated Complaint: Fell of horse shoulder and rib pain Time Seen by Provider: 03/13/23 21:48 Source: patient and family Mode of arrival: ambulatory Limitations: no limitations History of Present Illness: Patient presents to the emergency department because of injury from falling from her horse this evening. She states she she and the horse parted ways and she landed predominantly on her right side. She states that she has pain in her chest when she takes a deep breath and in her right shoulder. She denies loss of consciousness but has an abrasion to her forehead. She also has an abrasion to her right forearm. She does not take any antiplatelet or anticoagulation medication. MD complaint: fall Fall from: other (Off horse) Fall witnessed: yes, by family Place fall occurred: home Loss of consciousness: None Location of injury: head and chest Location of injury - extremities: Right: shoulder and forearm Associated symptoms-after fall: Denies abdominal pain or headache(s) Review of Systems Eyes: Denies: change in vision ENMT: Denies: throat pain or odynophagia Card: Denies: syncope or pre-syncope Resp: Denies: dyspnea GI: Denies: abdominal pain, nausea or vomiting Musc: Reports: extremity pain Skin/Breast: Reports: new lesions Neuro: Denies: headache(s), numbness in extremities or weakness in extremities Carlos/Lymph: Denies: easy bruising or easy bleeding PFS ED PFSH: Medical History AAA (abdominal aortic aneurysm) 2.3cm 2017 2.4cm 05/04/2020 Anxiety, generalized Bilateral renal cysts 05/04/2020 Controlled diabetes mellitus Diverticula of colon Hiatal hernia HTN, goal below 130/80 Mixed hyperlipidemia Nonalcoholic fatty liver disease Right ureteral stone Surgical History 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 finger History of cardiac radiofrequency ablation [address] [facility] History of kyphoplasty September 13, 2021 Family History Other Herpes zoster Denies family history of Bleeding disorder Social History Smoking and tobacco status: former smoker Second hand smoke exposure: No Smoking risk assessment/counseling performed?: No Alcohol intake: never Desire information about alcohol rehabilitation?: No Counseling given: No Desire information about substance/drug rehabilitation?: No Counseling given: No Adopted: No Caregiver/support person: No Lives independently: Yes Household members: spouse Housing: House Marital status: Number of children: 2 Number of grandchildren: 8 Highest education level completed: Associate Degree: Academic Program service: No Current occupational status: retired Pets and animals: Yes Current gender identity: Female Physical Exam Narrative: EXAM NARRATIVE: She is alert, makes good eye contact, answers all questions in a goal-directed fluent fashion. Const: COMMON NORMALS: patient oriented x3, no limitations and alert GENERAL APPEARANCE: cooperative NUTRITIONAL APPEARANCE: overweight HENMT: COMMON NORMALS: Normal nasal mucous membranes and turbinates present and moist oral mucous membranes HEAD & SCALP: abrasion; no palpable skull fracture and no scalp tenderness FACE & SINUS: normal facial exam and face symmetric FACE & SINUS IMAGES: 1. Abrasion no step-off, no laceration. NOSE: Normal nasal mucous membranes and turbinates present Eye: COMMON NORMALS: Equal, round and reactive pupils present, EOMs intact bilaterally and conjunctivae normal CONJUNCTIVA: Yes conjunctivae normal PUPIL: Yes Equal, round and reactive pupils present Neck/C-Spine: CERVICAL SPINE: Yes cervical ROM normal, No Cervical spine tende rness and No step off deformity Chest: COMMONS NORMALS: normal inspection of the chest Resp: COMMON NORMALS: normal respiratory effort, No use of accessory muscles and clear to auscultation bilaterally AUSCULTATION: clear to auscultation bilaterally Cardio: COMMON NORMALS: regular rate, regular rhythm, No murmurs present (Cardio) and Peripheral pulses 2+ throughout RATE: regular rate RHYTHM: regular rhythm PERIPHERAL PULSES: Peripheral pulses 2+ throughout GI: COMMON NORMALS: Normal to inspection, nondistended, normoactive bowel sounds present : COMMON NORMALS: Yes no CVA tenderness BLADDER/KIDNEY EXAM: Yes no CVA tenderness Back/Pelvis: COMMON NORMALS: no CVA tenderness, thoracic and lumbar spine normal to inspection, no thoracic nor lumbar tenderness, thoraco-lumbar ROM normal and straight leg raise negative bilaterally PELVIS: Yes no pain with anterior-posterior compression and Yes no pain with lateral compression Extremity: RIGHT UPPER EXTREMITY: Yes clavicle (Tenderness to palpation) and Yes lower arm (Abrasion posterior right forearm) Neuro: [place] COMA SCALE: document GCS findings [place] coma scale eye opening: Spontaneous [place] coma scale verbal response: Orientated [place] coma scale motor response: Obey commands [place] coma scale total score: 15 COMMON NORMALS: patient oriented x3, moves all extremities and no sensory deficits noted SENSORIUM/ORIENTATION: Yes alert GAIT: Yes Normal gait present Psych: COMMON NORMALS: mental status grossly normal Skin: TRAUMA: abrasion (Forehead, right forearm) Course Reevaluation(s): Reevaluation #1: Patient remained stable. Normal vital signs, no evidence of hypoxia, tachypnea difficulty breathing or other concerning findings. We discussed current imaging findings, etc. and treatment options. Time: 11:20 Vital Signs: Vital signs: Vital Signs Temperature 97.8 F 03/13/23 20:01 Pulse Rate 78 03/13/23 20:01 Respiratory Rate 16 03/13/23 20:01 Blood Pressure 155/90 03/13/23 20:01 Pulse Oximetry 95 03/13/23 20:01 Oxygen Delivery Me thod Room Air 03/13/23 20:01 MDM - Fall Medical Decision Making This patient made her way to the emergency department after suffering a fall from her horse. She primary landed on her right side and suffered injury to her right shoulder area forehead abrasion and abrasion to her right forearm. Clinical examination did not reveal any other concerning findings. She had no axial spine tenderness, etc. Imaging was obtained. She had a resultant finding of a right clavicle fracture as well as a very minute less than 5% pneumo thorax. No associated rib fractures etc. No other findings on imaging to include cervical spine injury intracranial injury etc. I discussed current findings with patient and spouse. Given the very small pneumothorax without any evidence hypoxia, tachycardia, associated injury discussed that the reasonable course and excepted course currently is to repeat a chest x-ray in 12 to 24 hours to ensure that there is no expansion of her pneumothorax. We also discussed expected course of her clavicle fracture we will place her in a sling for that injury. We will schedule her to return to the emergency department for repeat chest x- ray also discussed other reasons for return precautions. We will place a orthopedic consult in for them to follow her clavicle fracture. Medical Records I reviewed the patient's medical records. Lab Data I reviewed the patient's lab results. Radiology Impressions Cervical Spine CT 03/13/23 21:58 IMPRESSION: No acute spinal injury. Trace pneumothorax at the right lung apex. Chest CT 03/13/23 21:58 IMPRESSION: 1. Small right pneumothorax measuring 5.3 mm in thickness. 2. Right midclavicular fracture with displacement. 3. L1 vertebral body compression fracture with vertebroplasty changes appears chronic. 4. Bibasilar atelectasis. 5. Hepatic steatosis. 6. Ascending thoracic aorta is dilated to 3.8 cm. 7. Cardiomegaly. 8. Coronary artery atherosclerotic calcifications. 9. Hepatic steatosis. 10. Small hiatal hernia. 11. Right kidney cyst, negative for follow-up advised. ADDENDUM: 03/13/23 [id number] THIS REPORT CONTAINS FINDINGS THAT MAY BE CRITICAL TO PATIENT CARE. The findings were verbally communicated via telephone conference with Dr. Mark at 11:26 PM CDT on 03/13/2023. The findings were acknowledged and understood. Clavicle X-Ray 03/13/23 21:58 IMPRESSION: 1. Right midclavicular fracture with overlap of the fracture fragments. 2. Moderate acromioclavicular joint osteoarthritis. Head CT 03/13/23 21:58 IMPRESSION: No acute intracranial injury. Forearm X-Ray 03/13/23 22:03 IMPRESSION: 1. Negative for fracture or dislocation. 2. Cacs-jh-knmurxgu osteoarthritis of the elbow. Discharge Plan Discharge Patient Disposition: Home Clinical Impression: Fracture, clavicle closed, shaft, Abrasion forearm, Pneumothorax Condition: Stable Prescriptions: New hydrocodone-acetaminophen 7.5-325 mg tablet 1 tab PO TID PRN (Reason: pain) Qty: 20 0RF No Action atorvastatin 40 mg tablet 40 mg PO DAILY Qty: 30 1RF metformin 500 mg tablet extended release 24 hr 500 mg PO BID 90 Days Qty: 180 1RF metoprolol succinate 25 mg tablet extended release 24 hr 12.5 mg PO DAILY Qty: 90 1RF venlafaxine 150 mg capsule,extended release 24hr 150 mg PO DAILY Qty: 90 1RF Discharge Orders: Discharge ED (Routine); Ordered 03/13/23 Ordered By: Bhargav Joshi Referrals: Jesus Peng, PUSH CONNECTOR ASSEMBLER-C [Primary Care Provider] - Discharge Diet: Usual diet Discharge Activity: Limit activity as instructed Patient Instructions: Clavicle Fracture (ED), Opioid Safety, Pain Management Activity Restrictions/Additional Instructions: As discussed while you are in the emergency department you have a collarbone fracture on your right collarbone. This and the vast majority of cases will heal with conservative treatment using a sling and limiting range of motion until pain is improved. We have placed a consult in for you to see Dr. Houser in follow-up in the next 7 to 10 days. You also have a very very tiny small collapse of your right lung which current medical treatment is usually observed rather than treated aggressively. We recommend you return to the emergency department on Saturday morning to have a repeat chest x-ray to ensure that you are condition has not worsened and is in fact improving. It anytime you have increasing shortness of breath, increasing pain or any concerns return to the emergency department immediately. Coding Level of Care Code ED Social Human Services Assistants for Donavon Forde
--- NOTE | 2023-03-13 22:03 | XRR_ITS ---
PROCEDURE INFORMATION: Exam: XR Right Forearm Exam date and time: 03/13/2023 10:44 PM Age: 67 years old Clinical indication: Pain; Lower or forearm; Right; Additional info: Fall of horse TECHNIQUE: Imaging protocol: Radiologic exam of the right forearm. Views: 2 views. COMPARISON: No relevant prior studies available. FINDINGS: Bones/joints: Thja-vz-gulwaoyl osteoarthritis of the elbow. Soft tissues: Normal. XR/XR forearm RT 2V [id number] IMPRESSION: 1. Negative for fracture or dislocation. 2. Ezcm-ro-lqztneoa osteoarthritis of the elbow.
[2023-03-13] MEDS: HYDROcodone-acetaminophen 7.5-325 mg Tablet 1 TAB PO (22:23)
[2023-03-13] MEDS: bacitracin ointment Pkt 1 EACH TOPICAL (23:58)
[2023-03-14] MEDS: HYDROcodone-acetaminophen 5-325 mg Tablet 1 TAB PO (00:05)
[2023-03-14 00:06] VITALS: BP 155/90; O2SAT 95
--- NOTE | 2023-03-14 09:57 | DCPLANNER ---
Addendum entered by Simran Allen 03/22/23 08:46: Patient had a follow up appointment scheduled with ortho - patient did not attend appointment. Addendum entered by Simran Allen 03/15/23 10:23: Patient has a follow up appointment scheduled for Saturday, March 20, 2023 at 1:[address] Hicks at ortho. Original Note: bi manager had message to schedule a follow up appointment for patient with ortho. bi manager sent patients information to the front office staff at ortho. Patients information will be printed and reviewed. Clinic will call patient with appointment information.
== END 2023-03-14 00:05 | disposition home or self-care (01) ==
PROVIDERS: Emergency Provider Emergency Medicine; PCP Nurse Practitioner
DX: S42.001A Fracture of unspecified part of right clavicle, initial encounter for closed fracture (principal); J93.9 Pneumothorax, unspecified; S50.811A Abrasion of right forearm, initial encounter; S00.81XA Abrasion of other part of head, initial encounter; V80.010A Animal-rider injured by fall from or being thrown from horse in noncollision accident, initial encounter
CPT/HCPCS: 70450; 71250; 72125; 73000; 73090; 99284

== ENCOUNTER 2023-03-15 10:52 | Emergency (ER) | payer MEDICARE, SELFPAY ==
[2023-03-15 11:01] VITALS: BP 152/79; PULSE 74; RESP 20; TEMP 36.1; O2SAT 95; BMI 29.6
--- NOTE | 2023-03-15 11:09 | CT_ITS ---
WS: [id number] CT CHEST TECHNIQUE: Noncontrast CT of the chest with coronal and sagittal reformatted images. CLINICAL INFORMATION: fu right pneumothorax COMPARISON: CT March 13, 2023 DLP: 522.[address] scans at [facility] use at least one of these dose optimization techniques: automated e xposure control; mA and/or kV adjustment per patient size (includes targeted exams where dose is matc hed to clinical indication); or iterative reconstruction. FINDINGS: Multiple RIGHT lateral rib fractures 4th through 7th ribs worse at the 7th rib with mild displacement . Moderate RIGHT pneumothorax is progressed compared to previous. Small RIGHT pleural effusion with c ompressive atelectasis RIGHT lower lobe. LEFT lung is well aerated. Aortic calcification. Coronary calcification. RIGHT midclavicular fracture with overlapping fracture fragments. Diffuse fatty infiltration liver. Small esophageal hiatal hernia. Adrenal glands are normal. Small LE FT renal cyst. Stable ectatic ascending thoracic aorta. CT/CT chest wo con [id number] IMPRESSION: 1. Moderate RIGHT pneumothorax is increased in size compared to previous. 2. Small amount of increased RIGHT pleural fluid with RIGHT basilar atelectasi s. 3. Several RIGHT lateral rib fractures 4th through 7th ribs slightly displaced involving the 7th rib. Remaining fractures are not displaced. These are seen t o better advantage today. 4. LEFT lung is well aerated. 5. RIGHT midclavicular fracture with comminuted fracture fragments appears unc hanged. 6. Diffuse fatty infiltration liver. Notified Lev Sheppard DO at 03/15/2023 12:03 PM.
--- NOTE | 2023-03-15 11:11 | ED_ITS ---
HPI - SOB/Dyspnea General: Chief Complaint: Shortness of Breath/Dyspnea Stated Complaint: rib pain, follow up from 03/13 Time Seen by Provider: 03/15/23 10:56 Mode of arrival: ambulatory History of Present Illness: HPI Narrative: Patient presents to the ER with complaints of follow-up of right pneumothorax from trauma 2 days ago. Patient was seen in ER 2 days ago diagnosed with a right clavicle fracture and a small pneumothorax on the right. Patient still having right-sided chest pain especially when breathing and coughing. Patient has appoint with Dr. Vasques on 419. Patient was prescribed [place] to take for pain and is taking it and alternating with Tylenol and ibuprofen. MD elicited complaint: pain with inspiration Onset (ago): day(s) (2 days ago) Context: trauma/injury Timing: constant Severity: moderate Exacerbating factors: coughing and deep breaths Relieving factors: medication Associated symptoms: Reports chest pain (On right side when breathing and taking a big deep breath or coughing.) and cough; Deny abdominal pain, fever(s), nausea or vomiting Review of Systems General: Reports: 10 or more systems reviewed and unremarkable except in HPI and below Const: Denies: fever(s) or chills Eyes: Denies: change in vision ENMT: Denies: throat pain or odynophagia Card: Reports: chest pain (On right side when breathing and taking a big deep breath or coughing.) Resp: Reports: pain on inspiration GI: Denies: abdominal pain, nausea, vomiting or diarrhea : Denies: flank pain or dysuria Musc: Denies: neck pain or back pain Skin/Breast: Denies: rash or pruritus Neuro: Denies: headache(s), numbness in extremities or weakness in extremities PFSH ED PFSH: Medical History AAA (abdominal aortic aneurysm) 2.3cm 2017 2.4cm 05/04/2020 Anxiety, generalized Bilateral renal cysts 05/04/2020 Controlled diabetes mellitus Diverticula of colon Hiatal hernia HTN, goal below 130/80 Mixed hyperlipidemia Nonalcoholic fatty liver disease Right ureteral stone Surgical History 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 finger History of cardiac radiofrequency ablation 2007 at [facility] History of kyphoplasty September 13, 2021 Family History Other Herpes zoster Denies family history of Bleeding disorder Social History Smoking and tobacco status: former smoker Second hand smoke exposure: No Smoking risk assessment/counseling performed?: No Alcohol intake: never Desire information about alcohol rehabilitation?: No Counseling given: No Desire information about substance/drug rehabilitation?: No Counseling given: No Adopted: No Caregiver/support person: No Lives independently: Yes Household members: spouse Housing: House Marital status: Number of children: 2 Number of grandchildren: 8 Highest education level completed: Associate Degree: Academic Program service: No Current occupational status: retired Pets and animals: Yes Current gender identity: Female Physical Exam Const: COMMON NORMALS: no acute distress, average body habitus, patient oriented x3, no limitations, healthy appearing, alert and well nourished HENMT: COMMON NORMALS: normocephalic, atraumatic, hearing grossly normal bilaterally, external ears normal, Normal external nose present and moist oral mucous membranes HEAD & SCALP: normocephalic and atraumatic NOSE: Normal external nose present EXTERNAL EAR: Yes external ears normal Eye: COMMON NORMALS: Equal, round and reactive pupils present, EOMs intact bilaterally, conjunctivae normal and no scleral icterus CONJUNCTIVA: Yes conjunctivae normal PUPIL: Yes Equal, round and reactive pupils present Neck/C-Spine: COMMON NORMALS: full ROM, no lymphadenopathy, supple, no meningeal signs, no JVD and Thyroid normal THYROID: Thyroid normal Chest: COMMONS NORMALS: normal inspection of the chest OTHER: Tenderness to palpation over right lateral chest wall. Resp: COMMON NORMALS: normal respiratory effort, No retractions and No use of accessory muscles Cardio: COMMON NORMALS: no JVD, regular rate, regular rhythm, S1 normal heart sound present and S2 normal heart sound present RATE: regular rate RHYTHM: regular rhythm HEART SOUNDS: S1 normal heart sound present and S2 normal heart sound present GI: COMMON NORMALS: Normal to inspection, nondistended, normoactive bowel sounds present, Soft to palpation, non-tender, No hepatosplenomegaly present and no masses PALPATION: Yes Soft to palpation and Yes No hepatosplenomegaly present Neuro: COMMON NORMALS: patient oriented x3 SENSORIUM/ORIENTATION: Yes alert MENINGEAL SIGNS: Yes no meningeal signs Course Vital Signs: Vital signs: Vital Signs Temperature 96.9 F L 03/15/23 11:01 Pulse Rate 74 03/15/23 11:01 Respiratory Rate 20 H 03/15/23 11:01 Blood Pressure 152/79 03/15/23 11:01 Pulse Oximetry 95 03/15/23 11:01 Oxygen Delivery Me thod Room Air 03/15/23 11:01 MDM - SOB/Dyspnea Medical Decision Making Patient presents to the ER for follow-up. 2 days ago she fell from her horse landed on her collarbone and ribs. She was diagnosed with a right clavicle fracture and a small pneumothorax. Today we reCT her chest which showed the pneumothorax increased from 5.3 mm to moderate per radiology ribs 4 through 7 appear to be broken at this time with mild displacement of rib 7. Patient was placed on 2 L of oxygen per nasal cannula secondary to comfort and inability to take a deep breath. We do not have CT surgery and/or pulmonology today. General surgery Dr. Menendez was called he suggested that we transfer her to a trauma center since she is greater than 55 with 3 contiguous rib fractures and a pneumo. [facility] in [place] was called and currently do not have any beds today and probably will have till tomorrow. [facility] transfer line was called they suggested ER to ER transfer secondary to trauma Dr. Dooley in the ER accepted transfer. Differential Diagnosis Unlikely acute exacerbation of chronic obstructive airways disease, congestive heart failure, community acquired pneumonia, asthma with exacerbation or pulmonary embolism Medical Records I reviewed the patient's medical records. Lab Data I reviewed the patient's lab results. Labs/Radiology: Radiology Impressions Chest CT 03/15/23 11:09 IMPRESSION: 1. Moderate RIGHT pneumothorax is increased in size compared to previous. 2. Small amount of increased RIGHT pleural fluid with RIGHT basilar atelectasis. 3. Several RIGHT lateral rib fractures 4th through 7th ribs slightly displaced involving the 7th rib. Remaining fractures are not displaced. These are seen to better advantage today. 4. LEFT lung is well aerated. 5. RIGHT midclavicular fracture with comminuted fracture fragments appears unchanged. 6. Diffuse fatty infiltration liver. Notified Lev Sheppard DO at 03/15/2023 12:03 PM. Discharge Plan Discharge Patient Disposition: Xfer Short-Term Hosp Clinical Impression: Fracture, clavicle closed, shaft, Pneumothorax Condition: Stable Prescriptions: No Action metformin 500 mg tablet extended release 24 hr 500 mg PO BID 90 Days Qty: 180 1RF multivitamin Tablet 1 tab PO DAILY PRN (Reason: UNKNOWN) Vitamin D3 125 mcg (5,000 unit) Tablet 125 mcg PO QAM atorvastatin 40 mg tablet 40 mg PO QAM venlafaxine 150 mg capsule,extended release 24hr 150 mg PO QAM metoprolol succinate 25 mg tablet extended release 24 hr 25 mg PO QAM hydrocodone-acetaminophen 7.5-325 mg tablet 1 tab PO TID PRN (Reason: pain) Qty: 20 0RF Referrals: Jesus Peng, MASTER MOTORCYCLE TECHNICIAN-C [Primary Care Provider] - Coding Level of Care Code ED Rod Machine Operator for Donavon Forde
--- NOTE | 2023-03-15 11:22 | PC.PHAR ---
PT STATES SHE TAKES CARE OF HER OWN MEDICATIONS-RX FILLED 12/04/22 100D/S FOR METOPROLOL SUCCINATE ER 25MG TAKE 12.5MG DAILY PT STATES THE DR IN [place] INCREASED TO 25MG QAM-PT STATES SHE TAKES A MULTIVITAMIN PRN-NOTES ARE MADE IN THE PHARMACY COMMENTS
[2023-03-15 12:50] VITALS: BP 165/94; PULSE 76; RESP 18; O2SAT 92
[2023-03-15 13:00] VITALS: BP 146/82; PULSE 74; RESP 16; O2SAT 94
[2023-03-15] MEDS: fentaNYL 50 mcg/mL INJ 2mL IVP (13:21)
[2023-03-15 13:30] VITALS: BP 136/85; PULSE 72; RESP 18; O2SAT 93
== END 2023-03-15 14:21 | disposition short-term general hospital (02) ==
PROVIDERS: Emergency Provider Emergency Medicine; PCP Nurse Practitioner
DX: J93.9 Pneumothorax, unspecified (principal); S42.001A Fracture of unspecified part of right clavicle, initial encounter for closed fracture; S22.41XA Multiple fractures of ribs, right side, initial encounter for closed fracture; V80.010A Animal-rider injured by fall from or being thrown from horse in noncollision accident, initial encounter; Y93.52 Activity, horseback riding
CPT/HCPCS: 71250; 96374; 99285; J3010

== ENCOUNTER → 2023-03-26 13:37 | Outpatient (BNVA) | payer MEDICARE, SELFPAY | PROVIDERS: PCP Nurse Practitioner; Visit Provider Nurse Practitioner | DX: S20.219A Contusion of unspecified front wall of thorax, initial encounter (principal); M79.10 Myalgia, unspecified site; X58.XXXA Exposure to other specified factors, initial encounter | CPT/HCPCS: 71046 ==

== ENCOUNTER 2023-04-01 06:00 | Outpatient (RCR) | payer MEDICARE, SELFPAY | END 2023-05-01 23:59 | disposition home or self-care (01) | LOC: APT 06:00 | PROVIDERS: Visit Provider Orthopaedic Surgery | DX: S42.001D Fracture of unspecified part of right clavicle, subsequent encounter for fracture with routine healing (principal); X58.XXXD Exposure to other specified factors, subsequent encounter | CPT/HCPCS: 97110; 97162 ==

== ENCOUNTER → 2023-05-07 08:28 | Outpatient (BNVA) | payer MEDICARE, SELFPAY | PROVIDERS: Visit Provider Nurse Practitioner | DX: E11.9 Type 2 diabetes mellitus without complications (principal); I10 Essential (primary) hypertension; E55.9 Vitamin D deficiency, unspecified | CPT/HCPCS: 80053; 80061; 82306; 83036; 84443 ==

== ENCOUNTER 2023-05-08 08:18 | Outpatient (CLI) | payer MEDICARE, SELFPAY ==
--- NOTE | 2023-05-08 08:35 | MM_ITS ---
WS: [id number] SCREENING DIGITAL TOMOSYNTHESIS MAMMOGRAM WITH CAD HISTORY: Z12.39 - Encounter for other screening for malignant neoplasm COMPARISON: 03/06/2022, 01/27/2021 Bilateral CC and MLO with tomosynthesis views submitted. Synthetic mammography reviewed. Computer aid ed detection analyzed. Breast composition: There are scattered areas of fibroglandular density. No suspicious masses, microc alcifications or architectural distortion. Benign stable calcifications within each breast. MM/[id number] IMPRESSION: BI-RADS: 2-Benign FOLLOW UP: 1 Year Follow-up
== END 2023-05-08 08:19 | disposition home or self-care (01) ==
LOC: RAD 08:27
PROVIDERS: PCP Family Medicine; Visit Provider Nurse Practitioner
DX: Z12.31 Encounter for screening mammogram for malignant neoplasm of breast (principal)
CPT/HCPCS: 77063; 77067

== ENCOUNTER 2023-05-12 08:04 | Outpatient (RCR) | payer MEDICARE, SELFPAY | END 2023-05-31 23:59 | disposition home or self-care (01) | LOC: APT 08:04 | PROVIDERS: PCP Family Medicine; Visit Provider Orthopaedic Surgery | DX: S42.001D Fracture of unspecified part of right clavicle, subsequent encounter for fracture with routine healing (principal); X58.XXXD Exposure to other specified factors, subsequent encounter | CPT/HCPCS: 97110; 97112; 97530 ==

== ENCOUNTER 2023-06-01 06:00 | Outpatient (RCR) | payer MEDICARE, SELFPAY | END 2023-06-25 23:59 | disposition home or self-care (01) | LOC: APT 06:00 | PROVIDERS: PCP Family Medicine; Visit Provider Orthopaedic Surgery | DX: S42.001D Fracture of unspecified part of right clavicle, subsequent encounter for fracture with routine healing (principal); X58.XXXD Exposure to other specified factors, subsequent encounter | CPT/HCPCS: 97110; 97112; 97530 ==

== ENCOUNTER → 2023-10-30 08:42 | Outpatient (BNVA) | payer MEDICARE, SELFPAY | PROVIDERS: PCP Nurse Practitioner; Visit Provider Nurse Practitioner | DX: E11.9 Type 2 diabetes mellitus without complications (principal); Z23 Encounter for immunization | CPT/HCPCS: 80053; 80061; 82043; 83036 ==

== ENCOUNTER → 2024-05-06 08:20 | Outpatient (BNVA) | payer MEDICARE, SELFPAY | PROVIDERS: PCP Nurse Practitioner; Visit Provider Nurse Practitioner | DX: M79.10 Myalgia, unspecified site (principal); E11.9 Type 2 diabetes mellitus without complications; E11.65 Type 2 diabetes mellitus with hyperglycemia; I10 Essential (primary) hypertension; F41.1 Generalized anxiety disorder | CPT/HCPCS: 80053; 80061; 82043; 82607; 83036 ==

== ENCOUNTER 2024-05-11 11:59 | Outpatient (CLI) | payer MEDICARE, SELFPAY ==
--- NOTE | 2024-05-11 12:04 | MM_ITS ---
WS: [id number] BILATERAL 3D TOMOSYNTHESIS DIGITAL SCREENING MAMMOGRAPHY WITH CAD CLINICAL INFORMATION: Z12.31 - Encounter for screening mammogram for malignant ... HISTORY: Screening mammogram. No current complaints. COMPARISON: 2022 TECHNIQUE: Bilateral CC and MLO views. FINDINGS: Scattered fibroglandular densities bilaterally. No suspicious focal mass, asymmetry, calcifications, or architectural distortion. No evidence of malignancy. Tiny punctate calcifications similar to previ ous. MM/[id number] IMPRESSION: BI-RADS: 2-Benign FOLLOW UP: 1 Year Follow-up Recommend return to annual screening mammography.
== END 2024-05-11 12:00 | disposition home or self-care (01) ==
LOC: RAD 12:00
PROVIDERS: PCP Nurse Practitioner; Visit Provider Nurse Practitioner
DX: Z12.31 Encounter for screening mammogram for malignant neoplasm of breast (principal); R92.323 Mammographic fibroglandular density, bilateral breasts
CPT/HCPCS: 77063; 77067

== ENCOUNTER 2024-05-14 07:42 | Outpatient (CLI) | payer MEDICARE, SELFPAY ==
--- NOTE | 2024-05-14 08:00 | CT_ITS ---
WS: [id number] CT ABDOMEN AND PELVIS NONCONTRAST HISTORY: I71.4 - Abdominal aortic aneurysm, without rupture TECHNIQUE: Imaging performed through the abdomen and pelvis. Coronal and sagittal reformats are submi tted. All CT scans at [facility] use at least one of these dose optimization techniques: auto mated exposure control; mA and/or kV adjustment per patient size (includes targeted exams where dose is matched to clinical indication); or iterative reconstruction. DLP: 607.97 mGy.cm COMPARISON: 09/05/2021 Lower thorax: Lung bases are clear. Visualized heart is normal. Small hiatal hernia. Liver: Liver is slightly enlarged with diffuse low attenuation from hepatic steatosis. No intrahepati c duct dilatation. Areas of fatty sparing adjacent to the gallbladder. Gallbladder: Normal gallbladder. No pericholecystic fluid or cholelithiasis. No gallbladder wall thic kening. Pancreas: Normal size and attenuation. Normal pancreatic duct. No pancreatitis or mass. Spleen: Normal. Adrenal glands: Normal. No mass. Right kidney: Normal size kidney. Reidentified is a central renal cyst measuring 3.4 x 5.6 x 3.4 cm w hich has been previously described. No renal obstruction. Left kidney: Areas of low-attenuation within the cortex probably related to small cyst. Cannot be fur ther evaluated on this unenhanced exam. Nonobstructing calcification central renal pelvis. Aorta: Mild atherosclerosis aorta. Mildly ectatic aorta with a maximum diameter of 2.8 cm. Mild aorti c dilatation has very slightly increased since 2019. Atherosclerotic plaque continues into the iliac arteries. No free fluid, intraperitoneal air or significant lymphadenopathy. GI tract: Mild soft tissue thickening at the GE junction is very nonspecific and may be due to under distention of the stomach. No small bowel obstruction Moderate diffuse constipation. No appendicitis. Abdominal wall: Small umbilical hernia contains fat only. Pelvis: Uterus is midline and contains foreign body most consistent with an IUD. Small follicle LEFT ovary. No adnexal masses. No free fluid. Osseous structures: Prior kyphoplasty L1. Degenerative disc disease and narrowing at L4-5. Benign-donavan earing mixed sclerotic and lytic lesion in the proximal LEFT femur since 2020. CT/CT abdomen pelvis wo con [id number] IMPRESSION: 1. Mild ectasia and dilatation of the infrarenal aorta to 2.8 cm. Very slight increase in size since 2019. 2. Hepatic steatosis and mild hepatomegaly. 3. No renal obstruction. 4. Stable RIGHT renal cyst. 5. Diffuse moderate constipation. 6. No adenopathy or free fluid. 7. Prior kyphoplasty L1.
== END 2024-05-14 07:43 | disposition home or self-care (01) ==
LOC: RAD 07:42
PROVIDERS: PCP Nurse Practitioner; Visit Provider Nurse Practitioner
DX: I71.40 Abdominal aortic aneurysm, without rupture, unspecified (principal); K44.9 Diaphragmatic hernia without obstruction or gangrene; K76.0 Fatty (change of) liver, not elsewhere classified; N28.1 Cyst of kidney, acquired; K59.00 Constipation, unspecified; M51.36 Other intervertebral disc degeneration, lumbar region; Z87.311 Personal history of (healed) other pathological fracture
CPT/HCPCS: 74176; 80053; 80061; 82043; 82607; 83036

== ENCOUNTER → 2024-11-10 09:51 | Outpatient (BNVA) | payer MEDICARE, SELFPAY | PROVIDERS: PCP Nurse Practitioner; Visit Provider Nurse Practitioner | DX: G43.109 Migraine with aura, not intractable, without status migrainosus (principal); F41.1 Generalized anxiety disorder; I10 Essential (primary) hypertension; E11.9 Type 2 diabetes mellitus without complications; E11.65 Type 2 diabetes mellitus with hyperglycemia | CPT/HCPCS: 80053; 80061; 82043; 82607; 83036 ==

== ENCOUNTER → 2025-04-15 09:56 | Outpatient (BNVA) | payer MEDICARE, SELFPAY | PROVIDERS: PCP Nurse Practitioner; Visit Provider Nurse Practitioner | DX: I10 Essential (primary) hypertension (principal); E11.65 Type 2 diabetes mellitus with hyperglycemia | CPT/HCPCS: 80053; 80061; 83036; 84443 ==

== ENCOUNTER 2025-04-30 08:54 | Outpatient (CLI) | payer MEDICARE, SELFPAY ==
--- NOTE | 2025-04-30 09:15 | USR_ITS ---
PROCEDURE INFORMATION: Exam: US Right Limited Joint or Other Non-Vascular Extremity Structure Exam date and time: 04/30/2025 9:23 AM Age: 69 years old Clinical indication: Other: Other specified soft tissue disorders; Additional info: M79.89 - other specified soft tissue disorders TECHNIQUE: Imaging protocol: US right limited joint or other nonvascular extremity structure. Real-time ultrasound with image documentation. Exam focused on the area of clinical interest. Total images: 23 COMPARISON: CT chest wo con [id number] 03/15/2023 11:25 AM FINDINGS: Soft tissues: Directed ultrasound over the site involving the right biceps as identified by the patient. There are two subcutaneous cysts noted, the smaller measures 3 x 3 x 3 mm, and the larger 7 x 6 x 7 mm. Neither appears hypervascular. US/US soft tissue/extremity [id number] IMPRESSION: Clinical site corresponding with two subcutaneous cysts as further detailed above. These are of undetermined etiology.
== END 2025-04-30 08:55 | disposition home or self-care (01) ==
LOC: RAD 08:56
PROVIDERS: PCP Nurse Practitioner; Visit Provider Nurse Practitioner
DX: M79.89 Other specified soft tissue disorders (principal); L72.8 Other follicular cysts of the skin and subcutaneous tissue
CPT/HCPCS: 76882

== ENCOUNTER 2025-06-16 11:24 | Outpatient (CLI) | payer MEDICARE, SELFPAY ==
--- NOTE | 2025-06-16 11:20 | MM_ITS ---
WS: [id number] BILATERAL SCREENING DIGITAL TOMOSYNTHESIS MAMMOGRAM WITH CAD HISTORY: Z12.31 - Encounter for screening mammogram for malignant ... COMPARISON: 05/11/2024, 05/08/2023, 03/06/2022 Bilateral CC and MLO views with tomosynthesis and synthetic mammography submitted. Computer aided detection analyzed. Breast composition: There are scattered areas of fibroglandular density. No suspicious masses, microcalcifications or architectural distortion. Benign calcifications in each breast. MM/MM scr BI tomosynthesis [id number] IMPRESSION: BI-RADS: 2 - Benign. FOLLOW UP: 1 Year Follow-up
== END 2025-06-16 11:25 | disposition home or self-care (01) ==
LOC: MOBLMAM 11:30
PROVIDERS: PCP Nurse Practitioner; Visit Provider Nurse Practitioner
DX: Z12.31 Encounter for screening mammogram for malignant neoplasm of breast (principal); R92.323 Mammographic fibroglandular density, bilateral breasts; R92.1 Mammographic calcification found on diagnostic imaging of breast
CPT/HCPCS: 77063; 77067

== ENCOUNTER → 2025-08-03 12:17 | Outpatient (BNVA) | payer MEDICARE, SELFPAY | PROVIDERS: PCP Nurse Practitioner; Visit Provider Nurse Practitioner | DX: E11.65 Type 2 diabetes mellitus with hyperglycemia (principal) | CPT/HCPCS: 80053; 83036 ==

== ENCOUNTER → 2025-10-13 09:23 | Outpatient (BNVA) | payer MEDICARE, SELFPAY | PROVIDERS: PCP Nurse Practitioner; Visit Provider Nurse Practitioner | DX: E11.65 Type 2 diabetes mellitus with hyperglycemia (principal); E78.2 Mixed hyperlipidemia | CPT/HCPCS: 80053; 80061; 82043; 83036 ==

== ENCOUNTER 2025-11-11 20:03 | Inpatient (IN) | payer MEDICARE, SELFPAY ==
[2025-11-11 20:12] VITALS: BP 144/73; PULSE 107; RESP 16; TEMP 36.7; O2SAT 98; BMI 33.1
--- OUTSIDE RECORDS SUMMARY | 2025-11-11 20:15 | XMS_ITS | Clinical Summary ---
Author Organization [facility] Address [address] Attn: Epic Prelude ADT [place] [address] Care Team Providers Care Tractor Operator Helper Name Role Phone Unavailable Primary Care Provider Unavailabl e Allergies No known active allergies Medications atorvastatin (LIPITOR) 40 mg tablet Take 40 mg by mouth daily. Active metFORMIN (GLUCOPHAGE) 500 mg tablet Take 500 mg by mouth daily with breakfast. Active metoprolol succinate (TOPROL XL) 50 mg Extended Release 24 hour tablet Take 25 mg by mouth 2 times daily. Active venlafaxine (EFFEXOR) 75 mg tablet Take 75 mg by mouth 2 times daily. Active doxepin (SINEquan) 10 mg capsule Take 10 mg by mouth 3 times daily as needed. 03/01/2016 Active atorvastatin (LIPITOR) 40 mg tablet Take 40 mg by mouth Daily LATE. 03/01/2016 Active metoprolol tartrate (LOPRESSOR) 25 mg tablet Take 25 mg by mouth daily. 03/01/2016 Active venlafaxine (EFFEXOR) 75 mg tablet Take 75 mg by mouth daily. 03/01/2016 Active Active Problems Problem Noted Date Diagnosed Date Ectatic abdominal aorta 06/21/2017 Chest pain 04/13/2016 Hyperlipidemia 04/13/2016 Benign hypertension 04/13/2016 PSVT (paroxysmal supraventricular tachycardia) 0 08/29/2009 Social History Tobacco Use Types Packs/Day Years Used Date Smoking Tobacco: Former Smokeless Tobacco: Never Comments:Quit smoking: Hasn' t smoked in over 30yrs Alcohol Use Standard Drinks/Week Comments Not Asked 0 (1 standard drink = 0.6 oz pur e alcohol) Comments No Sex and Gender Information Value Date Recorded Sex Assigned at Not on file Legal Sex Female 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 Gender Identity Not on file Sexual Orientation Not on file Last Filed Vital Signs Vital Sign Reading Time Taken Comments Blood Pressure 132/86 06/05/2022 12:59 PM CDT Pulse 76 06/05/2022 12:59 PM CDT Temperature 36.2 C (97.1 F) 05/29/2022 12:53 PM CDT Respiratory Rate 16 05/29/2022 12:5 3 PM CDT Oxygen Saturation 95% 05/29/2022 12: 53 PM CDT Inhaled Oxygen Concentration - - Weight 86.5 kg (190 lb 12.8 oz) 022 12:59 PM CDT Height 170.2 cm (5' 7 ) 06/05/2022 12:5 9 PM CDT Body Mass Index 29.88 06/05/2022 12:59 PM CDT Plan of Treatment Health Maintenance Due Date Last Done Comments DTAP/TDAP/TD VACCINES (1 - Tdap) 1973 BREAST CANCER SCREENING 1994 COLORECTAL SCREENING 1999 Colorectal Cancer Screening 1999 FIT-DNA Q 3 years 1999 FIT/FOBT Q 1 year 1999 Flex Sig/CT Colonography Q 5 years 1999 PNEUMOCOCCAL VACCINE 50+ YEARS (1 of 1 - PCV) 05/22/20 04 ZOSTER VACCINE (1 of 2) 2004 OSTEOPOROSIS SCREENING 2019 INFLUENZA VACCINE (#1) 2025 RSV VACCINE (60+ or ) (1 - 1-dose 75+ series) 2029 Insurance [facility] [id number]
--- OUTSIDE RECORDS SUMMARY | 2025-11-11 20:15 | XMS_ITS | Encounter Summary ---
Author Organization [facility] Address [address] [place] [address] Care Team Providers Care Assembler Hydraulic Backhoe Name Role Phone Kae Hernandez MD Primary Care Provider Unavailab le Encounter Details Date Type Department Care Team (Latest Contact Info) Description 04/15/2007 Outpatient Historical [facility] Cardiology- [place] [address] [place] [address] Laura Shane MD [address] [facility] [facility] [address] [place] [address] Paroxysmal Supraventricular Tachycardia (Primary Dx) Social History Tobacco Use Types Packs/Day Years Used Date Smoking Tobacco: Never Assessed Comments Unknown Sex and Gender Information Value Date Recorded Sex Assigned at Not on file 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
--- OUTSIDE RECORDS SUMMARY | 2025-11-11 20:15 | XMS_ITS | Encounter Summary ---
Author Organization [facility] Address [address] [place] [address] Care Team Providers Care Circulation Representative Name Role Phone Kae Hernandez MD Primary Care Provider Unavailab le Encounter Details Date Type Department Care Team (Late st Contact Info) Description 11/17/2007 Outpatient Historical [facility] Cardiology- [place] [address] [place] [address] Laura Shane MD [address] [facility] [address] [place] [address] Social History Tobacco Use Types Packs/Day Years Used Date Smoking Tobacco: Never Assessed Comments Unknown Sex and Gender Information Value Date Recorded Sex Assigned at Not on file 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
--- OUTSIDE RECORDS SUMMARY | 2025-11-11 20:15 | XMS_ITS | Encounter Summary ---
Author Organization [facility] Address [address] [place] [address] Care Team Providers Care Proteomics Scientist Name Role Phone Kae Hernandez MD Primary Care Provider Unavailab le Encounter Details Date Type Department Care Team (Latest Contact Info) Description 05/27/2007 Outpatient Historical [facility] Cardiology- [place] [address] [place] [address] Iza Hernandez, [place] [address] [place] [address] Paroxysmal Supraventricular Tachycardia (Primary Dx); Syncope and Collapse Social History Tobacco Use Types Packs/Day Years Used Date Smoking Tobacco: Never Assessed Comments Unknown Sex and Gender Information Value Date Recorded Sex Assigned at Not on file 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
--- OUTSIDE RECORDS SUMMARY | 2025-11-11 20:15 | XMS_ITS | Clinical Summary ---
Author Organization [facility] Address [address] [place] [address] Care Team Providers Care Web Project Manager Name Role Phone Kae Hernandez MD Primary Care Provider Unavailab le Allergies No known active allergies Medications lisinopril (PRINIVIL) 5 mg Oral tablet Take 10 mg by mouth daily . Active multivitamin (DAILY-SEGUNDO) Oral tablet Take 1 Tab by mouth daily. Active Cholecalciferol, Vitamin D3, (VITAMIN D) 5,000 unit Oral Tab Take 1,000 Units by mouth daily . Active venlafaxine (EFFEXOR) 75 mg tablet Take 75 mg by mouth daily. Active atorvastatin (LIPITOR) 40 mg tablet Take 40 mg by mouth Daily LATE. Active metoprolol tartrate (LOPRESSOR) 25 mg tablet Take 25 mg by mouth daily. Active doxepin (SINEQUAN) 10 mg capsule Take 10 mg by mouth 3 times daily as needed. 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 Gender Identity Not on file Sexual Orientation Not on file Last Filed Vital Signs Vital Sign Reading Time Taken Comments Blood Pressure 112/74 06/21/2017 1:05 PM CDT Pulse 85 06/21/2017 1:05 PM CDT Temperature - - Respiratory Rate 16 08/29/2009 12:46 PM CDT Oxygen Saturation 95% 06/21/2017 1:05 PM CDT Inhaled Oxygen Concentration - - Weight 84.8 kg (187 lb) 06/21/2017 1:05 PM CDT Height 172.7 cm (5' 8 ) 06/21/2017 1:05 PM CDT Body Mass Index 28.43 06/21/2017 1:05 PM CDT Plan of Treatment Health Maintenance [...] (1 - 1-dose 75+ series) 2029 [address] [place] [address] [employer] LOC[employer] Care Teams Web Project Manager Relationship Specialty Start Date End Date Kae Hernandez MD PCP - General 08/29/09
--- OUTSIDE RECORDS SUMMARY | 2025-11-11 20:16 | XMS_ITS | Encounter Summary ---
Author Organization [facility] Address [address] [place] [address] Care Team Providers Care Child Welfare Director Name Role Phone Kae Hernandez MD Primary Care Provider Unavailab le Encounter Details Date Type Department Care Team (Late st Contact Info) Description 04/16/2007 Outpatient Historical [facility] Laura Shane MD [address] 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 Gender Identity Not on file Sexual Orientation Not on file documented as of this encounter Plan of Treatment Not on file documented as of this encounter Procedures Procedure Name Priority Date/Time Associated Diagnosis Comments PT AND APTT Routine 04/16/2007 8:30 AM CDT CBC WITHOUT DIFFERENTIAL Routine 04/16/2007 8:30 AM CDT BASIC METABOLIC PANEL Routine 04/16/2007 8:30 AM CDT documented in this encounter Results * BASIC METABOLIC PANEL (04/16/2007 8:30 AM CDT) GLUCOSE 106 70 - 110 mg/dL INTERFACE SYSTEM BUN 13 7 - 17 mg/dL INTERFACE SYSTEM CREATININE 0.8 0.7 - 1.2 mg/dL INTERFACE SYSTEM SODIUM 140 136 - 145 mEq/L INTERFACE SYSTEM POTASSIUM 4.9 3.5 - 5.0 mEq/L INTERFACE SYSTEM CHLORIDE 107 95 - 110 mEq/L INTERFACE SYSTEM CO2 26 22 - 32 mmol/l INTERFACE SYSTEM CALCIUM 9.5 8.4 - 10.5 mg/dL INTERFACE SYSTEM ANION GAP 12 9 - 20 mEq/L INTERFACE SYSTEM OSMOLALITY, CALCULATED 290 275 - 295 mOsm/Kg INTERFACE SYSTEM 04/16/2007 8:30 AM CDT us Laura Shane MD CHEMISTRY ORDERABLES Edited INTERFACE SYSTEM Refer to clinic/hospital department * PT AND APTT (04/16/2007 8:30 AM CDT) PROTIME 13.3 13.0 - 15.7 Secs INTERFACE SYSTEM Comment: As of 06 note change in normal range. INR 0.9 INTERFACE SYSTEM Comment: Expected Values for INR: DVT/PE Goal INR 2.5; range 2.0 - 3.0 Valve Replacement Tissue Goal INR 2.5; range 2.0 - 3.0 Mechanical Goal INR 3.0; range 2.5 - 3.5 POST-WV Goal INR 2.5; range 2.0 - 3.0 or Goal 3.0; range 2.5 - 3.5 Atrial Fibrillation Goal INR 2.5; range 2.0 - 3.0 Ischemic Stroke Goal INR 2.5; range 2.0 - 3.0 For additional information see Guidelines for Anticoagulation available from the pharmacy Kathi Ramos PTT 25.0 21.6 - 35.6 Secs INTERFACE SYSTEM Comment: Therapeutic Range: Hi-level PE/DVT heparin protocol 80.1 -95.0 sec Lo-level PE/DVT heparin protocol 67.1 - 80.0 sec Cardiac Heparin Protocol 67.1 - 85.0 sec Neuro Heparin Protocol 67.1 - 80.0 sec As of 11/07/2006 note change in APTT Normal Range. 04/16/2007 8:30 AM CDT us Laura Shane MD HEMATOLOGY ORDERABLES Edited INTERFACE SYSTEM Refer to clinic/hospital department * (ABNORMAL) CBC WITHOUT DIFFERENTIAL (04/16/2007 8:30 AM CDT) WBC 8.8 4.8 - 10.8 K/ul INTERFACE SYSTEM RBC 4.59 4.20 - 5.40 Mil/ul INTERFACE SYSTEM HEMOGLOBIN 14.9 12.0 - 16.0 g/dL INTERFACE SYSTEM HEMATOCRIT 43.1 36.0 - 46.0 % INTERFACE SYSTEM MCV 93.9 84.0 - 103.0 Fl INTERFACE SYSTEM MCH 32.5 27.0 - 34.0 pg INTERFACE SYSTEM MCHC 34.6 30.0 - 35.0 g/dL INTERFACE SYSTEM RDW 13.2 11.0 - 14.5 % INTERFACE SYSTEM PLATELETS 211 140 - 440 K/ul INTERFACE SYSTEM MPV 11.1 8.9 - 12.8 Fl INTERFACE SYSTEM NEUTROPHILS 64.9 42.2 - 75.2 % INTERFACE SYSTEM LYMPHOCYTES 25.3 24.0 - 44.0 % INTERFACE SYSTEM MONOCYTES 9.1 2.0 - 10.0 % INTERFACE SYSTEM EOSINOPHILS 0.6 0.0 - 7.0 % INTERFACE SYSTEM BASOPHILS 0.1 0.0 - 1.0 % INTERFACE SYSTEM NEUTROPHIL ABSOLUTE 5.7 2.0 - 8.0 K/ul INTERFACE SYSTEM LYMPHOCYTE ABSOLUTE 2.2 1.2 - 4.0 K/ul INTERFACE SYSTEM MONOCYTE ABSOLUTE 0.8(H) 0.1 - 0.6 K/ul INTERFACE SYSTEM EOSINOPHIL ABSOLUTE 0.1 0.0 - 0.7 K/ul INTERFACE SYSTEM BASOPHILS ABSOLUTE 0.0 0.0 - 0.2 K/ul INTERFACE SYSTEM 04/16/2007 8:30 AM CDT us Laura Shane MD HEMATOLOGY ORDERABLES Edited INTERFACE SYSTEM Refer to clinic/hospital department documented in this encounter Visit Diagnoses Diagnosis Syncope and collapse- Primary documented in this encounter Care Teams Child Welfare Director Relationship Specialty Start Date End Date Kae Hernandez MD PCP - General 08/29/09 documented as of this encounter
[2025-11-11] MEDS: ondansetron 2 mg/ML SDV 2 mL 4 MG IVP ×2 (22:44→23:07)
[2025-11-11 22:49] LABS: Hematocrit 43.5 % (36-47); Hemoglobin 14.80 g/dL (11.27-16.99); Mean Corpuscular HGB Conc 34.0 g/dL (30-55); Mean Corpuscular Hemoglobin 32.2 pg (27-33); Mean Corpuscular Volume 94.8 fl (85-98); Nucleated Red Blood Cells % 0 %; Platelet Count 210 10^3/cmm (157-399); Red Blood Count 4.59 10^6/uL (3.85-5.65); White Blood Count 15.12 10^3/uL (3.29-11.43)
[2025-11-11 22:52] VITALS: BP 161/83; PULSE 116; O2SAT 92
--- NOTE | 2025-11-11 22:58 | CTR_ITS ---
PROCEDURE INFORMATION: Exam: CT Abdomen And Pelvis With Contrast Exam date and time: 11/12/2025 12:42 AM Age: 70 years old Clinical indication: Abdominal pain; PT had a colonoscopy today TECHNIQUE: Imaging protocol: Computed tomography of the abdomen and pelvis with contrast. Radiation optimization: All CT scans at this facility use at least one of these dose optimization techniques: automated exposure control; mA and/or kV adjustment per patient size (includes targeted exams where dose is matched to clinical indication); or iterative reconstruction. Contrast material: OMNI 350; Contrast volume: 100 ml; Contrast route: INTRAVENOUS (IV); COMPARISON: CT abdomen pelvis wo con [id number] 05/14/2024 8:58 AM RADIATION DOSE METRICS: Total DLP (mGy-cm): 922.43 FINDINGS: Lungs: Atelectasis at the lung bases. Liver: Hepatic steatosis. Gallbladder and biliary ducts: Normal. No calcified stones. No ductal dilation. Pancreas: Normal. No ductal dilation. Spleen: Normal. No splenomegaly. Adrenal glands: Normal. No mass. Kidneys and ureters: Renal cysts measuring up to 5.9 x 3.6 cm in the right kidney lower pole. Stomach and bowel: Unremarkable. No obstruction. No mucosal thickening. Appendix: No evidence of appendicitis. Intraperitoneal space: Multiple locules of free air and edema along the right ascending colon, which may be from perforation due to recent colonoscopy. Surgical evaluation recommended. Vasculature: Unremarkable. No abdominal aortic aneurysm. Lymph nodes: Unremarkable. No enlarged lymph nodes. Urinary bladder: Unremarkable as visualized. Reproductive: IUD in the uterus. Bones/joints: Unremarkable. No acute fracture. Soft tissues: Unremarkable. CT/CT abdomen pelvis w con* [id number] IMPRESSION: Multiple locules of free air and edema along the right ascending colon, which may be from perforation due to recent colonoscopy. Surgical evaluation recommended. COMMENTS: Consistent with the [employer]'s Incidental Findings Committee white paper (J Am Dontrell Radiol 2018): Any incidental renal lesion less than 1 cm or classified as too small to characterize, or any incidental cystic renal lesion characterized as simple-appearing, is likely benign. No follow-up imaging is recommended for these lesions per consensus recommendations based on imaging criteria.
--- NOTE | 2025-11-11 22:59 | W.ED.ABDPA2 ---
Documented by User: CARMELA Ryan 11/12/25 01:33 HPI - Abdominal Pain General: Chief Complaint: Abdominal Pain Stated Complaint: colonoscopy today, severe pain since eating Time Seen by Provider: 11/11/25 21:41 History of Present Illness: Patient 70-year-old female had colonoscopy this morning with 3 noncancerous polyps removed, did all of her prep, no issues. She had okra, and salmon, just before 5 PM, and approximately 5 PM, she had right upper quadrant pain, that radiated around to her right flank. She does have a history of renal colic/urolithiasis in the past, however this does feel different. This is associated with nausea, vomiting, right upper quadrant pain. She has intact gallbladder. Medications: She is on semaglutide, topiramate, atorvastatin Associated Symptoms: Denies change in bowel habits, diarrhea, heartburn and hematuria Related Data Home Medications ?Medication ?Instructions ?Recorded ?Confirmed cholecalciferol (vitamin D3) 125 125 mcg PO QAM 03/15/23 10/13/25 mcg (5,000 unit) tablet (Vitamin D3) multivitamin 1 tab PO DAILY PRN UNKNOWN 03/15/23 10/13/25 Previous Rx's ?Medication ?Instructions ?Recorded atorvastatin 40 mg tablet 40 mg PO QAM #90 tabs 10/17/25 magnesium oxide 800 mg (2 x 400 mg magnesium) PO 10/17/25 DAILY #180 tabs metoprolol succinate 25 mg 25 mg PO QAM #90 tabs 10/17/25 tablet,extended release 24 hr olanzapine 2.5 mg tablet 2.5 mg PO .with evening meal #90 10/17/25 tabs semaglutide 0.25 mg or 0.5 mg (2 0.5 mg (0.736 mL) SUBCUT .weekly 10/17/25 mg/3 mL) subcutaneous pen injector #3 mL (Ozempic) topiramate 25 mg tablet (Topamax) 25 mg PO BID #180 tabs 10/17/25 valsartan 40 mg tablet (Diovan) 40 mg PO DAILY #90 tabs 10/17/25 venlafaxine 150 mg 150 mg PO QAM #90 caps 10/17/25 capsule,extended release 24 hr Allergies Allergy/AdvReac Type Severity Reaction Status Date / Time No Known Allergies Allergy Verified 11/11/25 20:17 Review of Systems Const: Reports: change in weight (gain); Denies: change in appetite or change in sleep pattern Eyes: Denies: change in vision ENMT: Denies: odynophagia, hoarseness, nasal congestion or post nasal drip Card: Reports: other (Hypertension and hyperlipidemia); Denies: chest pain, swelling of feet/ankles or dyspnea on exertion Resp: Denies: productive cough GI: Denies: abdominal pain, dysphagia, heartburn, diarrhea or change in bowel habits : Denies: difficulty voiding or hematuria Musc: Reports: joint stiffness (right shoulder); Denies: neck pain Skin/Breast: Denies: rash or pruritus Neuro: Reports: headache(s) (migraine ); Denies: difficulty walking or dizziness Psych: Reports: anxiety and irritability; Denies: depression or suicidal ideation Endo: Reports: other (Type 2 diabetes); Denies: hot flashes Carlos/Lymph: Denies: enlarged lymph nodes All/Imm: Denies: seasonal rhinorrhea PFSH ED PFSH: Medical History (Updated 11/12/25 @ 01:23 by CARMELA Ryan) Migraine headache with aura Right ureteral stone Bilateral renal cysts 05/04/2020 Hiatal hernia Nonalcoholic fatty liver disease Diverticula of colon Anxiety, generalized Controlled diabetes mellitus AAA (abdominal aortic aneurysm) 2.3cm 2016 2.4cm 05/04/2020 HTN, goal below 130/80 Mixed hyperlipidemia Surgical History History of kyphoplasty September 13, 2021 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 finger History of cardiac radiofrequency ablation 2007 at [facility] Family History Other Herpes zoster Denies family history of Bleeding disorder Social History Smoking and tobacco/nicotine status: unknown if used tobacco/nicotine Second hand smoke exposure: No Alcohol intake: never Substance/Drug Use: never Adopted: No Caregiver/support person: No Lives independently: Yes Household members: spouse Housing: House Marital status: Number of children: 2 Number of grandchildren: 8 Highest education level completed: Associate Degree: Academic Program service: No Current occupational status: retired Pets and animals: Yes Current gender identity: Female Physical Exam Const: GENERAL APPEARANCE: cooperative and well kempt ORIENTATION/CONSCIOUSNESS: Yes oriented to person, Yes oriented to place and Yes oriented to time HENMT: COMMON NORMALS: external ears normal and Normal nasal mucous membranes and turbinates present NOSE: Normal nasal mucous membranes and turbinates present and No nasal discharge present EXTERNAL EAR: Yes external ears normal Eye: COMMON NORMALS: Equal, round and reactive pupils present and conjunctivae normal EYELID: eyelids normal CONJUNCTIVA: Yes conjunctivae normal PUPIL: Yes Equal, round and reactive pupils present Neck/C-Spine: GENERAL: Yes normal visual inspection CERVICAL SPINE: Yes cervical ROM normal Chest: CHEST: Yes Symmetrical chest wall rise Resp: COMMON NORMALS: clear to auscultation bilaterally EFFORT & INSPECTION: Yes able to speak in complete sentences AUSCULTATION: clear to auscultation bilaterally Cardio: COMMON NORMALS: regular rate and regular rhythm RATE: regular rate RHYTHM: regular rhythm HEART SOUNDS: no murmurs GI: COMMON NORMALS: Soft to palpation and non-tender PALPATION: Yes Soft to palpation Extremity: GENERAL: No edema Neuro: SENSORIUM/ORIENTATION: Yes oriented to person, Yes oriented to place and Yes oriented to time SPEECH: speech normal GAIT: Yes Normal gait present Psych: COMMON NORMALS: speech normal APPEARANCE: Yes well kempt ATTITUDE: Yes engaged SPEECH: Yes normal speech MOOD & AFFECT: Yes elevated mood Skin: GENERAL SKIN EXAM: no ecchymo and no erythema Course Consultations: Consultation #1: d/w Dr. Calvillo, he would like to see her; however did accept her as primary. Vital Signs: Vital signs: Vital Signs Temperature 98.0 F 11/11/25 20:12 Pulse Rate 107 H 11/12/25 01:51 Respiratory Rate 14 11/11/25 23:06 Blood Pressure 130/66 11/12/25 02:33 Pulse Oximetry 93 11/12/25 02:33 Oxygen Delivery Me thod Nasal Cannula 11/12/25 00:24 Oxygen Flow Rate 2 11/12/25 00:24 MDM - Abdominal Pain Medical Decision Making Patient is a 70-year-old female that colonoscopy earlier today, complaining of abdominal pain. On findings, she had leukocytosis, and had association of locules of free air and edema along the right ascending colon. Discussed the case with Dr. Nichole, that performed colonoscopy, the recommended surgical evaluation. Discussed the case with Dr. Hill, that accepted patient, however would like to see the patient before orders are in the computer. Medical Records I reviewed the patient's medical records. Lab Data I reviewed the patient's lab results. 11/11/25 22:42 11/11/25 22:42 Labs/Radiology: Radiology Impressions Abdomen/Pelvis CT 11/11/25 22:58 IMPRESSION: Multiple locules of free air and edema along the right ascending colon, which may be from perforation due to recent colonoscopy. Surgical evaluation recommended. COMMENTS: Consistent with the [employer]'s Incidental Findings Committee white paper (J Am Dontrell Radiol 2018): Any incidental renal lesion less than 1 cm or classified as too small to characterize, or any incidental cystic renal lesion characterized as simple-appearing, is likely benign. No follow-up imaging is recommended for these lesions per consensus recommendations based on imaging criteria. ADDENDUM: 11/12/25 0119 COMMENT: THIS REPORT CONTAINS FINDINGS THAT MAY BE CRITICAL TO PATIENT CARE. The exam findings were verbally communicated by me to ROSALVA BALL via telephone conference at 1:18 AM [facility] [employer] LEADER on 11/12/2025. The findings were acknowledged and understood. Laboratory Results WBC 15.12 10^3/uL (3.29-11.43) H 11/11/25 22:42 RBC 4.59 10^6/uL (3.85-5.65) 11/11/25 22:42 Hgb 14.80 g/dL (11.27-16.99) 11/11/25 22:42 Hct 43.5 % (36-47) 11/11/25 22:42 MCV 94.8 fl (85-98) 11/11/25 22:42 MCH 32.2 pg (27-33) 11/11/25 22:42 MCHC 34.0 g/dL (30-55) 11/11/25 22:42 RDW 12.3 % (12.1-15.1) 11/11/25 22:42 Plt Count 210 10^3/cmm (157-399) 11/11/25 22:42 MPV 10.1 fL (7.4-10.4) 11/11/25 22:42 Neut % (Auto) 82.0 % 11/11/25 22:42 Lymph % (Auto) 8.3 % 11/11/25 22:42 [place] % (Auto) 8.9 % 11/11/25 22:42 Eos % (Auto) 0.1 % 11/11/25 22:42 Baso % (Auto) 0.3 % 11/11/25 22:42 Neut # (Auto) 12.42 10^3/uL (1.8-7.7) H 11/11/25 22:42 Lymph # (Auto) 1.3 10^3/uL (0.8-4.8) 11/11/25 22:42 [place] # (Auto) 1.3 10^3/uL (0.2-0.9) H 11/11/25 22:42 Eos # (Auto) 0.0 10^3/uL (0.0-0.8) 11/11/25 22:42 Baso # (Auto) 0.0 10^3/uL (0.0-0.1) 11/11/25 22:42 Nucleated RBC % (auto) 0 % 11/11/25 22:42 Nucleated RBCs # 0.0 /100WBC 11/11/25 22:42 Sodium 139 mmol/L (136-145) 11/11/25 22:42 Potassium 3.6 mmol/L (3.5-5.1) 11/11/25 22:42 Chloride 104 mmol/L (98-107) 11/11/25 22:42 Carbon Dioxide 19 mmol/L (22-29) L 11/11/25 22:42 Anion Gap 19.6 (5-19) H 11/11/25 22:42 BUN 15 mg/dL (8-23) 11/11/25 22:42 Creatinine 0.7 mg/dL (0.5-0.9) 11/11/25 22:42 GFR Calculation Not Reportable 11/11/25 22:42 Glucose 177 mg/dL (65-115) H 11/11/25 22:42 Calculated Osmolality 293 mOsm/kg (285-295) 11/11/25 22:42 Calcium 8.6 mg/dL (8.5-10.5) 11/11/25 22:42 Total Bilirubin 0.3 mg/dL (0.15-1.2) 11/11/25 22:42 AST 27 U/L (0-32) 11/11/25 22:42 ALT 30 U/L (0-33) 11/11/25 22:42 Alkaline Phosphatase 122 U/L (35-105) H 11/11/25 22:42 Total Protein 7.2 g/dL (6.6-8.7) 11/11/25 22:42 Albumin 3.7 g/dL (3.5-5.2) 11/11/25 22:42 Globulin 3.5 g/dL (1.3-4.6) 11/11/25 22:42 Lipase 29 U/L (13-60) 11/11/25 22:42 Urine Color Yellow (Yellow) 11/11/25 23:00 Urine Appearance Clear (CLEAR) 11/11/25 23:00 Urine pH 5.0 (5-7) 11/11/25 23:00 Ur Specific [place] 1.027 (1.005-1.030) 11/11/25 23:00 Urine Protein Negative (Negative) 11/11/25 23:00 Urine Glucose (UA) 2+ (Normal) H 11/11/25 23:00 Urine Ketones Trace (Negative) 11/11/25 23:00 Urine Blood Negative (Negative) 11/11/25 23:00 Urine Nitrate Negative (Negative) 11/11/25 23:00 Urine Bilirubin Negative (Negative) 11/11/25 23:00 Urine Urobilinogen 0.2 mg/dL (Negative) 11/11/25 23:00 Ur Leukocyte Esterase Negative (Negative) 11/11/25 23:00 Urine RBC 0-2 /hpf (0-2) 11/11/25 23:00 Urine WBC 6-10 /hpf (0-5) 11/11/25 23:00 Ur Squamous Epith Cells 0-5 /hpf (0-5) 11/11/25 23:00 Amorphous Sediment Not Reportable 11/11/25 23:00 Urine Bacteria None seen /hpf (NONE) 11/11/25 23:00 Hyaline Casts 1.65 /lpf 11/11/25 23:00 All radiology interpretation(s) finalized by discharge Discharge Plan Discharge Patient Disposition: Admitted As Inpatient Clinical Impression: Perforated bowel Condition: Stable Discharge Diet: As Directed Coding Level of Care Code ED Aluminum Polisher for Chg Fwd Documented by User: Erika Wong MD 11/12/25 02:54 HPI - Abdominal Pain General: Chief Complaint: Abdominal Pain Stated Complaint: colonoscopy today, severe pain since eating Time Seen by Provider: 11/11/25 21:41 Related Data Home Medications ?Medication ?Instructions ?Recorded ?Confirmed cholecalciferol (vitamin D3) 125 125 mcg PO QAM 03/15/23 10/13/25 mcg (5,000 unit) tablet (Vitamin D3) multivitamin 1 tab PO DAILY PRN UNKNOWN 03/15/23 10/13/25 Previous Rx's ?Medication ?Instructions ?Recorded atorvastatin 40 mg tablet 40 mg PO QAM #90 tabs 10/17/25 magnesium oxide 800 mg (2 x 400 mg magnesium) PO 10/17/25 DAILY #180 tabs metoprolol succinate 25 mg 25 mg PO QAM #90 tabs 10/17/25 tablet,extended release 24 hr olanzapine 2.5 mg tablet 2.5 mg PO .with evening meal #90 10/17/25 tabs semaglutide 0.25 mg or 0.5 mg (2 0.5 mg (0.736 mL) SUBCUT .weekly 10/17/25 mg/3 mL) subcutaneous pen injector #3 mL (Ozempic) topiramate 25 mg tablet (Topamax) 25 mg PO BID #180 tabs 10/17/25 valsartan 40 mg tablet (Diovan) 40 mg PO DAILY #90 tabs 10/17/25 venlafaxine 150 mg 150 mg PO QAM #90 caps 10/17/25 capsule,extended release 24 hr Allergies Allergy/AdvReac Type Severity Reaction Status Date / Time No Known Allergies Allergy Verified 11/11/25 20:17 PFS ED PFSH: Medical History (Updated 11/12/25 @ 01:23 by CARMELA Ryan) Migraine headache with aura Right ureteral stone Bilateral renal cysts 05/04/2020 Hiatal hernia Nonalcoholic fatty liver disease Diverticula of colon Anxiety, generalized Controlled diabetes mellitus AAA (abdominal aortic aneurysm) 2.3cm 2016 2.4cm 05/04/2020 HTN, goal below 130/80 Mixed hyperlipidemia Surgical History History of kyphoplasty September 13, 2021 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 finger History of cardiac radiofrequency ablation 2007 at [facility] Family History Other Herpes zoster Denies family history of Bleeding disorder Social History Smoking and tobacco/nicotine status: unknown if used tobacco/nicotine Second hand smoke exposure: No Alcohol intake: never Substance/Drug Use: never Adopted: No Caregiver/support person: No Lives independently: Yes Household members: spouse Housing: House Marital status: Number of children: 2 Number of grandchildren: 8 Highest education level completed: Associate Degree: Academic Program service: No Current occupational status: retired Pets and animals: Yes Current gender identity: Female Course Vital Signs: Vital signs: Vital Signs Temperature 98.0 F 11/11/25 20:12 Pulse Rate 107 H 11/12/25 01:51 Respiratory Rate 14 11/11/25 23:06 Blood Pressure 130/66 11/12/25 02:33 Pulse Oximetry 93 11/12/25 02:33 Oxygen Delivery Me thod Nasal Cannula 11/12/25 00:24 Oxygen Flow Rate 2 11/12/25 00:24 MDM - Abdominal Pain Medical Decision Making Patient is a 70-year-old female that colonoscopy earlier today, complaining of abdominal pain. On findings, she had leukocytosis, and had association of locules of free air and edema along the right ascending colon. Discussed the case with Dr. Nichole, that performed colonoscopy, the recommended surgical evaluation. Discussed the case with Dr. Hill, that accepted patient, however would like to see the patient before orders are in the computer. ATTENDING PHYSICIAN ATTESTATION: Erika Vazquez MD, discussed the patient with CARMELA Ryan, reviewed labwork, imaging, and agree with the plan of care as hereby documented by MOISES. MDM: Patient is a 70-year-old female who presents with abdominal pain status post colonoscopy this morning with Dr. Nichole, has been found to have a perforated bowel. Dr. Calvillo, general surgeo collections rep, evaluated this patient and recommended admission to ICU and surgical intervention. Lab Data 11/11/25 22:42 11/11/25 22:42 Labs/Radiology: Radiology Impressions Abdomen/Pelvis CT 11/11/25 22:58 IMPRESSION: Multiple locules of free air and edema along the right ascending colon, which may be from perforation due to recent colonoscopy. Surgical evaluation recommended. COMMENTS: Consistent with the [employer]'s Incidental Findings Committee white paper (J Am Dontrell Radiol 2018): Any incidental renal lesion less than 1 cm or classified as too small to characterize, or any incidental cystic renal lesion characterized as simple-appearing, is likely benign. No follow-up imaging is recommended for these lesions per consensus recommendations based on imaging criteria. ADDENDUM: 11/12/25 0119 COMMENT: THIS REPORT CONTAINS FINDINGS THAT MAY BE CRITICAL TO PATIENT CARE. The exam findings were verbally communicated by me to ROSALVA BALL via telephone conference at 1:18 AM [facility] [employer] LEADER on 11/12/2025. The findings were acknowledged and understood. Laboratory Results WBC 15.12 10^3/uL (3.29-11.43) H 11/11/25 22:42 RBC 4.59 10^6/uL (3.85-5.65) 11/11/25 22:42 Hgb 14.80 g/dL (11.27-16.99) 11/11/25 22:42 Hct 43.5 % (36-47) 11/11/25 22:42 MCV 94.8 fl (85-98) 11/11/25 22:42 MCH 32.2 pg (27-33) 11/11/25 22:42 MCHC 34.0 g/dL (30-55) 11/11/25 22:42 RDW 12.3 % (12.1-15.1) 11/11/25 22:42 Plt Count 210 10^3/cmm (157-399) 11/11/25 22:42 MPV 10.1 fL (7.4-10.4) 11/11/25 22:42 Neut % (Auto) 82.0 % 11/11/25 22:42 Lymph % (Auto) 8.3 % 11/11/25 22:42 [place] % (Auto) 8.9 % 11/11/25 22:42 Eos % (Auto) 0.1 % 11/11/25 22:42 Baso % (Auto) 0.3 % 11/11/25 22:42 Neut # (Auto) 12.42 10^3/uL (1.8-7.7) H 11/11/25 22:42 Lymph # (Auto) 1.3 10^3/uL (0.8-4.8) 11/11/25 22:42 [place] # (Auto) 1.3 10^3/uL (0.2-0.9) H 11/11/25 22:42 Eos # (Auto) 0.0 10^3/uL (0.0-0.8) 11/11/25 22:42 Baso # (Auto) 0.0 10^3/uL (0.0-0.1) 11/11/25 22:42 Nucleated RBC % (auto) 0 % 11/11/25 22:42 Nucleated RBCs # 0.0 /100WBC 11/11/25 22:42 Sodium 139 mmol/L (136-145) 11/11/25 22:42 Potassium 3.6 mmol/L (3.5-5.1) 11/11/25 22:42 Chloride 104 mmol/L (98-107) 11/11/25 22:42 Carbon Dioxide 19 mmol/L (22-29) L 11/11/25 22:42 Anion Gap 19.6 (5-19) H 11/11/25 22:42 BUN 15 mg/dL (8-23) 11/11/25 22:42 Creatinine 0.7 mg/dL (0.5-0.9) 11/11/25 22:42 GFR Calculation Not Reportable 11/11/25 22:42 Glucose 177 mg/dL (65-115) H 11/11/25 22:42 Calculated Osmolality 293 mOsm/kg (285-295) 11/11/25 22:42 Calcium 8.6 mg/dL (8.5-10.5) 11/11/25 22:42 Total Bilirubin 0.3 mg/dL (0.15-1.2) 11/11/25 22:42 AST 27 U/L (0-32) 11/11/25 22:42 ALT 30 U/L (0-33) 11/11/25 22:42 Alkaline Phosphatase 122 U/L (35-105) H 11/11/25 22:42 Total Protein 7.2 g/dL (6.6-8.7) 11/11/25 22:42 Albumin 3.7 g/dL (3.5-5.2) 11/11/25 22:42 Globulin 3.5 g/dL (1.3-4.6) 11/11/25 22:42 Lipase 29 U/L (13-60) 11/11/25 22:42 Urine Color Yellow (Yellow) 11/11/25 23:00 Urine Appearance Clear (CLEAR) 11/11/25 23:00 Urine pH 5.0 (5-7) 11/11/25 23:00 Ur Specific [place] 1.027 (1.005-1.030) 11/11/25 23:00 Urine Protein Negative (Negative) 11/11/25 23:00 Urine Glucose (UA) 2+ (Normal) H 11/11/25 23:00 Urine Ketones Trace (Negative) 11/11/25 23:00 Urine Blood Negative (Negative) 11/11/25 23:00 Urine Nitrate Negative (Negative) 11/11/25 23:00 Urine Bilirubin Negative (Negative) 11/11/25 23:00 Urine Urobilinogen 0.2 mg/dL (Negative) 11/11/25 23:00 Ur Leukocyte Esterase Negative (Negative) 11/11/25 23:00 Urine RBC 0-2 /hpf (0-2) 11/11/25 23:00 Urine WBC 6-10 /hpf (0-5) 11/11/25 23:00 Ur Squamous Epith Cells 0-5 /hpf (0-5) 11/11/25 23:00 Amorphous Sediment Not Reportable 11/11/25 23:00 Urine Bacteria None seen /hpf (NONE) 11/11/25 23:00 Hyaline Casts 1.65 /lpf 11/11/25 23:00 Discharge Plan Discharge Patient Disposition: Admitted As Inpatient Clinical Impression: Perforated bowel Condition: Stable Discharge Diet: As Directed Coding Level of Care Code ED Aluminum Polisher for Chg [place]
[2025-11-11 23:06] VITALS: RESP 14
[2025-11-11] MEDS: morphine 4 mg/mL SDV 1 mL IVP (23:06)
[2025-11-11 23:13] LABS: Glucose Urine UA 2+ (Normal); Nitrate Urine Negative (Negative); Specific Gravity, Urine 1.027 (1.005-1.030)
[2025-11-11 23:18] LABS: Add Urine Microscopic? YES
[2025-11-11 23:31] LABS: Alanine Aminotransferase 30 U/L (0-33); Albumin Level 3.7 g/dL (3.5-5.2); Alkaline Phosphatase 122 U/L (35-105); Aspartate Amino Transferase 27 U/L (0-32); Blood Urea Nitrogen 15 mg/dL (8-23); Calcium 8.6 mg/dL (8.5-10.5); Carbon Dioxide 19 mmol/L (22-29); Chloride 104 mmol/L (98-107); Globulin 3.5 g/dL (1.3-4.6); Glucose 177 mg/dL (65-115); Lipase 29 U/L (13-60); Osmolality Calculated 293 mOsm/kg (285-295); Sodium 139 mmol/L (136-145); Total Protein 7.2 g/dL (6.6-8.7)
[2025-11-11 23:32] LABS: Anion Gap 19.6 (5-19); Potassium 3.6 mmol/L (3.5-5.1)
[2025-11-11 23:56] VITALS: BP 141/77; PULSE 107; O2SAT 90
[2025-11-12] VITALS (12 sets, daily range): BP systolic 111–155; BP diastolic 66–79; PULSE 71–113; RESP 16–17; TEMP 36.4–36.6; O2SAT 88–95; BMI 33.0
--- NOTE | 2025-11-12 00:24 | PC.NURSE ---
pt. dropping to 88 o2 placed o2 2L
[2025-11-12] MEDS: diphenhydrAMINE 50 mg/mL SDV 1mL IVP (00:40)
[2025-11-12] MEDS: methylPREDNISolone sod succ 125 mg/2 mL INJ 80 MG IVP (00:40)
[2025-11-12] MEDS: iohexol 350 mg/mL 500 mL Btl (per mL) IV (00:41)
--- NOTE | 2025-11-12 00:43 | PC.NURSE ---
ct asked to bring meds for pt. who has had a previous reaction to contrast.
[2025-11-12] MEDS: piperacillin-tazobactam 3.375 GM in sodium chloride 0.9% (plus) 50 ML IV ×3 (01:50→17:25)
--- NOTE | 2025-11-12 03:31 | P.CONIM_ITS ---
Providers/Reason For Consult 2 Consulting Physician/Specialty*: charlie aranda MD general surgery Reason for Consult*: evaluate perforation on CT of colon Requesting Physician: ivana chan ER provider Attending Physician: Josesito Nichole MD Primary Care Provider: Jesus Peng, PRODUCTION ANALYST-C History of Present Illness History of Present Illness Maricel Edwards is a 70 year old female who had second screening colonoscopy done yesterday around 11 am. 3 polyps removed at outside local outpatient center by Dr. Nichole. She ate supper of salmon, baked potato and okra and developed right sided abdominal pain but no N/V. Didn't take temperature but had some chills now gone. She feels slightly bloated and had a BM or clear yellow stool with no blood. CT was done and shows some air along right colon and some edema. This is the area she points to as most painful. She is diabetic on ozempic with no CAD or CVA in past. Dr. nichole was called by ER and asked that general surgery see the patient. She is not on any strong blood thinners. WBC is 15k. Pain is also in right flank area. Review of Systems 2 Narrative: Constitutional: denies rigors, singnificant weight gain, increased appetite HEENT: denies chronic cough, blurry vision, excessive tearing, eye pain, flashing lights, odynophagia, painful mastication, change in voice, change in taste, chronic sore throat, hypersalivation Heart: denies racing heart, palpitations, othropnea, PND Lungs: denies hemoptysis, pain with deep inspiration, chronic bronchitis GI: denies hematemesis, hematochezia, dysphagia, tenesmus : denies polyuria, hematuria, painful micturation Musculoskeletal: denies hemarthrosis, Muscle wasting, change in amubation Neuro: denies new onset syncope, dysesthesia, dysequilibrium, ptosis eyelid or face SKin: denies new onset hyperalgia, new rash new cyanosis Endocrine: denies new polyuria, polydipsia, polyphagia, heat intolerance, excessive energy Hem/Onc: denies new petechiae, swollen glands, new excessive epstaxis Psych: denies racing thought Medications/Allergies Home Medications ?Medication ?Instructions ?Recorded ?Confirmed ?Last Taken ?Type cholecalciferol (vitamin D3) 125 125 mcg PO QAM 10/13/25 03/15/23 History mcg (5,000 unit) tablet (Vitamin D3) multivitamin 1 tab PO DAILY PRN UNKNOWN 0 03/15/23 10/13/25 Unknown History atorvastatin 40 mg tablet 40 mg PO QAM #90 tabs 10/17/25 Unknown Rx magnesium oxide 800 mg (2 x 400 mg magnesium ) PO 10/17/25 10/17/25 Unknown Rx DAILY #180 tabs metoprolol succinate 25 mg 25 mg PO QAM #90 tabs 10/1710/17/25 Unknown Rx tablet,extended release 24 hr olanzapine 2.5 mg tablet 2.5 mg PO .with evening meal #90 10/17/25 10/17/25 Unknown Rx tabs semaglutide 0.25 mg or 0.5 mg (2 0.5 mg (0.736 mL) SUB CUT .weekly 10/17/25 10/17/25 Unknown Rx mg/3 mL) subcutaneous pen injector #3 mL ([employer]) topiramate 25 mg tablet (Topamax) 25 mg PO BID #180 ta bs 10/17/25 10/17/25 Unknown Rx valsartan 40 mg tablet (Diovan) 40 mg PO DAILY #90 tab s 10/17/25 10/17/25 Unknown Rx venlafaxine 150 mg 150 mg PO QAM #90 caps 10/1710/17/25 Unknown Rx capsule,extended release 24 hr Allergies Allergy/AdvReac Type Severity Reaction Status Date / Time No Known Allergies Allergy Verified 11/11/25 20:17 Current Medications Generic Name Dose Route Start Last Admin Trade Name Freq PRN Reason Stop Dose Admin Lactated Ringer's 1,000 mls @ 125 mls/hr 11/12/25 01:30 11/12/25 02:29 Lactated Ringers IV 125 mls/hr .Q8H PRETTY Administration PFSH Acute 2 PFSH: Medical History (Updated 11/12/25 @ 01:23 by CARMELA Ryan) Migraine headache with aura Right ureteral stone Bilateral renal cysts 05/04/2020 Hiatal hernia Nonalcoholic fatty liver disease Diverticula of colon Anxiety, generalized Controlled diabetes mellitus AAA (abdominal aortic aneurysm) 2.3cm 2016 2.4cm 05/04/2020 HTN, goal below 130/80 Mixed hyperlipidemia Surgical History History of kyphoplasty September 13, 2021 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 finger History of cardiac radiofrequency ablation [address] [facility] Family History Other Herpes zoster Denies family history of Bleeding disorder Social History Smoking and tobacco/nicotine status: unknown if used tobacco/nicotine Second hand smoke exposure: No Alcohol intake: never Substance/Drug Use: never Adopted: No Caregiver/support person: No Lives independently: Yes Household members: spouse Housing: House Marital status: Number of children: 2 Number of grandchildren: 8 Highest education level completed: Associate Degree: Academic Program service: No Current occupational status: retired Pets and animals: Yes Current gender identity: Female Vitals/I&O/Wt Last Vital Signs Temp 98.0 F 11/11/25 20:12 Pulse 107 H 11/12/25 01:51 Resp 14 11/11/25 23:06 BP 130/66 11/12/25 02:33 Pulse Ox 93 11/12/25 02:33 O2 Del Method Nasal Cannula 11/12/25 00:24 O2 Flow Rate 2 11/12/25 00:24 Weight last 48 hrs Weight 187 lb 4 oz Physical Exam 2 Narrative: Patient is a well developed well nourished and in NAD and is afebrile with vitals stable and is answering questions appropriately with a normal affect and is alert and oriented x3 HEENT: normocephalic with normal external ears and nonicteric, oral mucosa moist and dentition normal for age, trachea midline with no large masses visualized Heart: RRR, no gallops murmurs or rubs, normal PMI with no thrills Lungs: normal excursions, no loud audible wheezing, no subcutaneous emphysema Abdomen: nondistended, no gross hepatosplenomegaly, no masses, RLQ tenderness but no rigidity or rebound, she states pain radiates into right back area/flank, no loud borborygmi Neuro: nonfocal, REAL, grossly normal sensation Musculoskeletal: good muscle tone, no fasciculations, normal gait Skin: pink warm and dry with no rashes or ecchymosis Vascular: good radial pulses, no ulceration, less than 2 second capillary refill in hand : deferred Data 11/11/25 22:42 11/11/25 22:42 A&P Assessment and plan 1. Perforated bowel: Plan: Patient with WBC [address] scan showing probable perforation of right colon with air and some edema in wall. I discussed case with patient and Dr. Nichole and treatment options including conservative antibiotic therapy versus surgical intervention which would include primary repair/colon resection with ostomy. Dr. Caal said the three polyps were very small 6 mm and colon was not inked. He is in favor of conservative antibiotic treatment with possible progression to surgery if patient clinically worsens with increasing pain, fever and rising WBC. He will admit patient and surgery will follow. Patient seems to be in agreement with this plan. With right flank pain, perforation may be in retroperitoneal area which would may conservative therapy more likely to succeed. PDMP PDMP Reviewed: Not Reviewed Coding Level of Care Code 46399 Diagnoses Perforated bowel K63.1
--- NOTE | 2025-11-12 04:17 | PM.HP ---
Providers/Chief Complaint Admitting Physician: Josesito Nichole MD Primary Care Provider: Jesus Peng, ROLLER SKATE REPAIRER-C Chief Complaint: colonoscopy today, severe pain since eating History of Present Illness Maricel Edwards is a 70 year old female who presented to the emergency room after having increasing abdominal pain. The patient had had a colonoscopy in the morning on the . Her colonoscopy had been remarkable for having 3 polyps removed. 2 of them in the ascending colon. One of them being about 6 to 7 mm and cautery was used during the removal process. She felt good post colonoscopy. She went out to eat, we went home and went to bed. When she woke up she was feeling pain in her right abdomen that got progressively worse. She came to the ER for further evaluation. In the ER, her vitals were relatively stable. Her pulse ox was around 90-89, and she was placed on oxygen. She received Zosyn. Initially she was evaluated by general surgery. Initially they were considering surgery. After further discussion, I have agreed to admit the patient and to monitor the patient and manage her conservatively at this time. Review of Systems General: Reports: 10 or more systems reviewed and unremarkable except in HPI and below Narrative: The patient continues to be hungry. She states that her pain is improving. She is not sure if she is passing gas Const: Denies: fever(s) Card: Denies: chest pain or irregular heart rhythm Resp: Denies: dyspnea GI: Reports: abdominal pain; Denies: nausea, vomiting, bloating, hematochezia or melena Medications/Allergies Home Medications ?Medication ?Instructions ?Recorded ?Confirmed ?Last Taken ?Type cholecalciferol (vitamin D3) 125 125 mcg PO QAM 03/15/23 10/13/25 03/15/23 History mcg (5,000 unit) tablet (Vitamin D3) multivitamin 1 tab PO DAILY PRN UNKNOWN 03/15/23 10/13/25 Unknown History atorvastatin 40 mg tablet 40 mg PO QAM #90 tabs 10/17/25 10/17/25 Unknown Rx magnesium oxide 800 mg (2 x 400 mg magnesium) PO 10/17/25 10/17/25 Unknown Rx DAILY #180 tabs metoprolol succinate 25 mg 25 mg PO QAM #90 tabs 10/17/25 10/17/25 Unknown Rx tablet,extended release 24 hr olanzapine 2.5 mg tablet 2.5 mg PO .with evening meal #90 10/17/25 10/17/25 Unknown Rx tabs semaglutide 0.25 mg or 0.5 mg (2 0.5 mg (0.736 mL) SUBCUT .weekly 10/17/25 10/17/25 Unknown Rx mg/3 mL) subcutaneous pen injector #3 mL (Ozempic) topiramate 25 mg tablet (Topamax) 25 mg PO BID #180 tabs 10/17/25 10/17/25 Unknown Rx valsartan 40 mg tablet (Diovan) 40 mg PO DAILY #90 tabs 10/17/25 10/17/25 Unknown Rx venlafaxine 150 mg 150 mg PO QAM #90 caps 10/17/25 10/17/25 Unknown Rx capsule,extended release 24 hr Allergies Allergy/AdvReac Type Severity Reaction Status Date / Time No Known Allergies Allergy Verified 11/11/25 20:17 PFSH Acute PFSH: Medical History Migraine headache with aura Right ureteral stone Bilateral renal cysts 05/04/2020 Hiatal hernia Nonalcoholic fatty liver disease Diverticula of colon Anxiety, generalized Controlled diabetes mellitus AAA (abdominal aortic aneurysm) 2.3cm 2017 2.4cm 05/04/2020 HTN, goal below 130/80 Mixed hyperlipidemia Surgical History History of kyphoplasty September 13, 2021 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 finger History of cardiac radiofrequency ablation 2007 at [facility] Family History Other Herpes zoster Denies family history of Bleeding disorder Social History Smoking and tobacco/nicotine status: unknown if used tobacco/nicotine Second hand smoke exposure: No Alcohol intake: never Substance/Drug Use: never Adopted: No Caregiver/support person: No Lives independently: Yes Household members: spouse Housing: House Marital status: Number of children: 2 Number of grandchildren: 8 Highest education level completed: Associate Degree: Academic Program service: No Current occupational status: retired Pets and animals: Yes Current gender identity: Female Vitals/I&O/Wt Last Vital Signs Temp 98.0 F 11/11/25 20:12 Pulse 107 H 11/12/25 01:51 Resp 14 11/11/25 23:06 BP 130/66 11/12/25 02:33 Pulse Ox 93 11/12/25 02:33 O2 Del Method Nasal Cannula 11/12/25 00:24 O2 Flow Rate 2 11/12/25 00:24 Weight last 48 hrs Weight 187 lb 4 oz Physical Exam Const: COMMON NORMALS: no acute distress and patient oriented x3 GENERAL APPEARANCE: cooperative, comfortable and well developed HENMT: COMMON NORMALS: normocephalic and moist oral mucous membranes HEAD & SCALP: normocephalic Chest: COMMONS NORMALS: normal inspection of the chest Resp: COMMON NORMALS: normal respiratory effort and clear to auscultation bilaterally AUSCULTATION: clear to auscultation bilaterally Cardio: COMMON NORMALS: regular rate, regular rhythm, No gallops present (Cardio), No murmurs present (Cardio) and No rub (Cardio) RATE: regular rate RHYTHM: regular rhythm GI: COMMON NORMALS: Normal to inspection, nondistended, normoactive bowel sounds present and Soft to palpation AUSCULTATION: Yes normoactive bowel sounds (In all 4 quadrants) PALPATION: Yes Soft to palpation, Yes Tenderness to palpation present (GI) (Mild tenderness.) Details: RLQ, No Guarding due to palpation present (GI), No Rigid due to palpation and No Rebound tenderness present Extremity: COMMON NORMALS: normal to inspection Neuro: COMMON NORMALS: patient oriented x3 and no focal motor deficits Skin: COMMON NORMALS: no rashes or lesions noted GENERAL SKIN EXAM: no rashes or lesions noted Data 11/11/25 22:42 11/11/25 22:42 CT Abd/Pel: Radiologist's impression: FINDINGS: Lungs: Atelectasis at the lung bases. Liver: Hepatic steatosis. Gallbladder and biliary ducts: Normal. No calcified stones. No ductal dilation. Pancreas: Normal. No ductal dilation. Spleen: Normal. No splenomegaly. Adrenal glands: Normal. No mass. Kidneys and ureters: Renal cysts measuring up to 5.9 x 3.6 cm in the right kidney lower pole. Stomach and bowel: Unremarkable. No obstruction. No mucosal thickening. Appendix: No evidence of appendicitis. Intraperitoneal space: Multiple locules of free air and edema along the right ascending colon, which may be from perforation due to recent colonoscopy. Surgical evaluation recommended. Vasculature: Unremarkable. No abdominal aortic aneurysm. Lymph nodes: Unremarkable. No enlarged lymph nodes. Urinary bladder: Unremarkable as visualized. Reproductive: IUD in the uterus. Bones/joints: Unremarkable. No acute fracture. Soft tissues: Unremarkable. CT/CT abdomen pelvis w con* [id number] IMPRESSION: Multiple locules of free air and edema along the right ascending colon, which may be from perforation due to recent colonoscopy. Surgical evaluation recommended. A&P Assessment and plan 1. Perforated bowel: I had a long discussion with the patient, her , and her fitness teacher. We discussed the pros and cons of managing her bowel perforation conservatively versus proceeding with surgery. They understand that there are risks regardless of the approach we take. Given her exam, together with the CT scan which does not show any free air under the diaphragm, and the understanding that the polyp removed was relatively small, together with stable vitals, and an unremarkable physical exam, I recommended to the patient and her that we manage her conservatively at this time. If we see a change in her condition as demonstrated the vitals, worsening pain, and lab work, we will consider changing her approach. PDMP PDMP Reviewed: Not Reviewed Attestations Medical Necessity Statement*: I anticipate the patient will stay in the hospital over 2 midnights to adequately monitor her post bowel perforation and to give her IV antibiotics. Coding Level of Care Code Acute Code for [facility] Diagnoses Perforated bowel K63.1
--- NOTE | 2025-11-12 04:31 | PC.NURSE ---
Report called to Norma on Med-surg. All questions and concerns were addressed at time of report.
--- NOTE | 2025-11-12 04:32 | PC.NURSE ---
recv'd report from [facility] ED--- pt will be going to 260, hx hiatal henis, AAA, DM. pt had colonoscopy 11/11/25, ate then co RUQ pain, CT + perforated R Ascending Colon. LR at 125 cc per hour w PIV at [facility].
[2025-11-12 06:45] LABS: Hematocrit 41.1 % (36-47); Hemoglobin 13.90 g/dL (11.27-16.99); Mean Corpuscular HGB Conc 33.8 g/dL (30-55); Mean Corpuscular Hemoglobin 32.3 pg (27-33); Mean Corpuscular Volume 95.6 fl (85-98); Nucleated Red Blood Cells % 0 %; Platelet Count 201 10^3/cmm (157-399); Red Blood Count 4.30 10^6/uL (3.85-5.65); White Blood Count 19.73 10^3/uL (3.29-11.43)
--- NOTE | 2025-11-12 06:57 | XR_ITS ---
WS: [id number] XR chest 2V* [id number] REASON FOR EXAM: follow up for evaluation of free air FINDINGS: No free air identified. No acute chest abnormality. CT scan of 12:46 a.m. 11/12/2025 was reviewed. Likely there is no free peritoneal air. The locules of air that are described are in the retroperitoneum posterior to the right colon. There appear to be diverticuli in the right colon and a perforated diverticulum may be the etiology of the retroperitoneal air. If a follow-up plain film evaluation is needed, recommend KUB. (With patient body habitus KUB may not be sensitive enough to demonstrate abnormality.) XR/XR chest 2V* [id number] IMPRESSION: No free air identified as above.
[2025-11-12 07:07] LABS: Alanine Aminotransferase 25 U/L (0-33); Albumin Level 3.5 g/dL (3.5-5.2); Alkaline Phosphatase 107 U/L (35-105); Anion Gap 15.7 (5-19); Aspartate Amino Transferase 19 U/L (0-32); Blood Urea Nitrogen 11 mg/dL (8-23); Calcium 8.4 mg/dL (8.5-10.5); Carbon Dioxide 21 mmol/L (22-29); Chloride 106 mmol/L (98-107); Globulin 3.1 g/dL (1.3-4.6); Glucose 229 mg/dL (65-115); Osmolality Calculated 295 mOsm/kg (285-295); Potassium 3.7 mmol/L (3.5-5.1); Sodium 139 mmol/L (136-145); Total Protein 6.6 g/dL (6.6-8.7)
[2025-11-12 07:08] LABS: Lactic Sepsis W/Reflex 1.8 mmol/L (0.5-2.2)
[2025-11-12] MEDS: D5-NS 0.45% + KCL 20 mEq 20 MEQ/1,000 ML BAG 125 MEQ IV ×3 (07:31→23:25)
[2025-11-12] MEDS: morphine 4 mg/mL SDV 1 mL IVP ×2 (08:54→14:55)
--- NOTE | 2025-11-12 14:46 | PC.SOCIAL ---
IMM Update pg 2 of IMM updated and reviewed w/ patient. Copy provided and copy dated, initialed and placed in chart.
--- NOTE | 2025-11-12 15:18 | P.PN_ITS ---
Subjective 2 Subjective: The patient has had a good day. She has passed gas multiple times. Her pain has been mild. She has noticed that the pain has started to transition up into the upper right quadrant. Overall she feels good. Vitals/I&O/Wt Last Vital Signs Temp 97.5 F L 11/12/25 11:38 Pulse 78 11/12/25 11:38 Resp 16 11/12/25 14:55 BP 138/74 11/12/25 11:38 Pulse Ox 92 11/12/25 11:38 O2 Del Method Room Air 11/12/25 11:38 O2 Flow Rate 2 11/12/25 00:24 11/12/25 11/12/25 11/12/25 06:59 14:59 22:59 Intake Total 1050 / 1050 1443.750 / 1443.750 50 / 1493.750 Output Total 650 / 650 Balance 1050 / 1050 793.750 / 793.750 50 / 843.750 Weight last 48 hrs Weight 186 lb 4 oz Weight 186 lb 6.4 oz Weight 187 lb 4 oz Physical Exam 2 Narrative: The patient is alert and oriented. She appears comfortable. Her lungs are good auscultation bilaterally. Her heart is regular rate and rhythm. Her abdomen is nondistended. She has some mild tenderness in the right upper quadrant. She has no rebound. She is not guarding. Data 11/12/25 06:37 11/12/25 06:37 CXR: Radiologist's impression: FINDINGS: No free air identified. No acute chest abnormality. CT scan of 12:46 a.m. 11/12/2025 was reviewed. Likely there is no free peritoneal air. The locules of air that are described are in the retroperitoneum posterior to the right colon. There appear to be diverticuli in the right colon and a perforated diverticulum may be the etiology of the retroperitoneal air. If a follow-up plain film evaluation is needed, recommend KUB. (With patient body habitus KUB may not be sensitive enough to demonstrate abnormality.) XR/XR chest 2V* [id number] IMPRESSION: No free air identified as above A&P Assessment and plan 1. Perforated bowel: Given the abdominal x-ray not demonstrating free air, I think it is likely that Rg not have a complete perforation of her bowel. It is likely that the air bubblesNoted on CT are probably still within the bowel wall.She has passed gas multiple times today. She is very hungry. I think all of these things speak to the fact that she is likely doing quite well. The risk of being a surgical candidate continues to decrease. We will continue to monitor the patient and we will repeat a an abdominal x-ray tomorrow morning as well as repeat her lab work. PDMP PDMP Reviewed: Not Reviewed Attestations 2 Medical Necessity Statement*: The patient is a remarkably well but will likely require at least 2 more midnights in the hospital. Coding Level of Care Code Acute Code for [facility] Diagnoses Perforated bowel K63.1
--- NOTE | 2025-11-12 15:24 | XR_ITS ---
WS: [id number] XR acute abdomen series [id number] REASON FOR EXAM: bowel perforation right colon FINDINGS: No free air. Small collection of bubbles of gas in the lateral right abdomen correlating to the gas posterior to the right colon seen on the CT scan of 11/12/2025. The volume of the gas and its distribution appears relatively the same as on the CT scan. Mild gaseous gastric distention. Nonspecific bowel gas pattern with segments of minimally gas distended small bowel. Colon gas is unremarkable with no distention noted. XR/XR acute abdomen series [id number] IMPRESSION: Small collection of right retroperitoneal gas which appears stable compared to the previous CT scan.
[2025-11-12] MEDS: venlafaxine ER (24HR) 150 mg Capsule PO (15:37)
[2025-11-13] VITALS (10 sets, daily range): BP systolic 109–169; BP diastolic 58–93; PULSE 61–96; RESP 16–20; TEMP 36.4–37; O2SAT 90–95; BMI 33.3
[2025-11-13] MEDS: piperacillin-tazobactam 3.375 GM in sodium chloride 0.9% (plus) 50 ML IV ×3 (01:54→17:33)
[2025-11-13] MEDS: morphine 4 mg/mL SDV 1 mL IVP ×4 (01:55→23:45)
[2025-11-13 03:55] LABS: Hematocrit 36.2 % (36-47); Hemoglobin 12.40 g/dL (11.27-16.99); Mean Corpuscular HGB Conc 34.3 g/dL (30-55); Mean Corpuscular Hemoglobin 32.5 pg (27-33); Mean Corpuscular Volume 94.8 fl (85-98); Nucleated Red Blood Cells % 0 %; Platelet Count 178 10^3/cmm (157-399); Red Blood Count 3.82 10^6/uL (3.85-5.65); White Blood Count 15.34 10^3/uL (3.29-11.43)
[2025-11-13 04:09] LABS: Alanine Aminotransferase 19 U/L (0-33); Albumin Level 3.1 g/dL (3.5-5.2); Alkaline Phosphatase 89 U/L (35-105); Anion Gap 13.6 (5-19); Aspartate Amino Transferase 14 U/L (0-32); Blood Urea Nitrogen 9 mg/dL (8-23); Calcium 7.9 mg/dL (8.5-10.5); Carbon Dioxide 23 mmol/L (22-29); Chloride 109 mmol/L (98-107); Globulin 2.8 g/dL (1.3-4.6); Glucose 135 mg/dL (65-115); Osmolality Calculated 295 mOsm/kg (285-295); Potassium 3.6 mmol/L (3.5-5.1); Sodium 142 mmol/L (136-145); Total Protein 5.9 g/dL (6.6-8.7)
[2025-11-13] MEDS: venlafaxine ER (24HR) 150 mg Capsule PO (05:21)
--- NOTE | 2025-11-13 07:04 | XRR_ITS ---
PROCEDURE INFORMATION: Exam: XR Complete Acute Abdomen Series Including Chest Exam date and time: 11/13/2025 9:31 AM Age: 70 years old Clinical indication: Abdominal pain; Additional info: Follow up TECHNIQUE: Imaging protocol: Radiologic exam. Complete acute abdomen series, including 2 or more views of the abdomen and a single view chest. COMPARISON: CR XR chest 2V* [id number] 11/12/2025 9:[address] abdomen and pelvis dated 11/12/2025. FINDINGS: Lungs: The lungs are unremarkable. Pleural spaces: Pleural spaces are unremarkable. No pneumothorax. No pleural effusion. Heart/Mediastinum: The cardiomediastinal silhouette is unremarkable. No cardiomegaly. Diaphragm: There is an elevated right hemidiaphragm. Gastrointestinal tract: The bowel gas pattern is unremarkable. Intraperitoneal space: There is no free air. Bones/joints: There is bone cement in the L2 vertebral body Soft tissues: Normal. XR/XR acute abdomen series [id number] IMPRESSION: There is no abdominal free air.
--- NOTE | 2025-11-13 07:08 | P.PN_ITS ---
Subjective 2 Subjective: The patient appears to be doing very well. She continues to pass gas. She continues to be very hungry. She does complain of right upper quadrant abdominal pain. It does not hurt when she coughs. Only when she takes a deep breath. Vitals/I&O/Wt Last Vital Signs Temp 97.6 F 11/13/25 04:00 Pulse 85 11/13/25 04:00 Resp 16 11/13/25 05:41 BP 125/70 11/13/25 04:00 Pulse Ox 91 11/13/25 04:00 O2 Del Method Nasal Cannula 11/13/25 04:00 O2 Flow Rate 2 11/13/25 04:00 11/12/25 11/13/25 11/13/25 22:59 06:59 14:59 Intake Total 1340 / 2783.750 50 / 2833.750 Output Total 300 / 950 350 / 1300 Balance 1040 / 1833.750 -300 / 1533.750 Weight last 48 hrs Weight 188 lb 1.6 oz Weight 186 lb 4 oz Weight 186 lb 6.4 oz Weight 187 lb 4 oz Physical Exam 2 Narrative: The patient is alert and oriented. She is pleasant. She is in no acute distress. Her lungs are clear to auscultation bilaterally. She has regular rate and rhythm Her abdomen is nondistended bowel sounds are positive in all 4 quadrants. She has tenderness to palpation in the right upper quadrant. There is no rebound. There is no guarding. Data 11/13/25 03:29 11/13/25 03:29 A&P Assessment and plan 1. Perforated bowel: The patient continues to do very well. Since we have not identified free air, and the patient continues to improve including passing gas and being very hungry, we will consider advancing diet depending on how the x-ray goes this morning. I am becoming more confident that she will not require any intervention and conservative therapy will be appropriate. I will be out of town for part of the day today. Dr. Lauren has graciously agreed to cover for me well and gone. PDMP PDMP Reviewed: Not Reviewed Attestations 2 Medical Necessity Statement*: The patient will require at least 1-2 more nights in the hospital depending on how she progresses. Coding Level of Care Code Acute Code for [facility] Fwd Diagnoses Perforated bowel K63.1
[2025-11-13] MEDS: D5-NS 0.45% + KCL 20 mEq 20 MEQ/1,000 ML BAG 125 MEQ IV ×2 (09:18→23:46)
--- NOTE | 2025-11-13 10:19 | PC.NURSE ---
Patient walked one lap around the floor after breakfast. Patient did very well.
--- NOTE | 2025-11-13 17:31 | PC.NURSE ---
Verbal orders from Dr. Nichole to give patient a regular diet.
--- NOTE | 2025-11-13 18:54 | PC.NURSE ---
Patient walked a lap around the floor. when going back to bed patient stated, sat on bed then flopped back. Patient stated it hurt her right side.
[2025-11-14] VITALS: BP 188/100; PULSE 94; RESP 16; TEMP 36.9; O2SAT 94
[2025-11-14] MEDS: piperacillin-tazobactam 3.375 GM in sodium chloride 0.9% (plus) 50 ML IV ×2 (01:45→09:51)
[2025-11-14 04:00] VITALS: BP 160/102; PULSE 111; RESP 18; TEMP 36.9; O2SAT 90
[2025-11-14 04:21] LABS: Hematocrit 38.8 % (36-47); Hemoglobin 13.20 g/dL (11.27-16.99); Mean Corpuscular HGB Conc 34.0 g/dL (30-55); Mean Corpuscular Hemoglobin 32.3 pg (27-33); Mean Corpuscular Volume 94.9 fl (85-98); Nucleated Red Blood Cells % 0 %; Platelet Count 173 10^3/cmm (157-399); Red Blood Count 4.09 10^6/uL (3.85-5.65); White Blood Count 13.76 10^3/uL (3.29-11.43)
[2025-11-14] MEDS: venlafaxine ER (24HR) 150 mg Capsule PO (04:30)
[2025-11-14 04:37] LABS: Alanine Aminotransferase 20 U/L (0-33); Albumin Level 3.5 g/dL (3.5-5.2); Alkaline Phosphatase 101 U/L (35-105); Anion Gap 15.6 (5-19); Aspartate Amino Transferase 17 U/L (0-32); Blood Urea Nitrogen 7 mg/dL (8-23); Calcium 8.1 mg/dL (8.5-10.5); Carbon Dioxide 23 mmol/L (22-29); Chloride 103 mmol/L (98-107); Globulin 2.9 g/dL (1.3-4.6); Glucose 195 mg/dL (65-115); Osmolality Calculated 289 mOsm/kg (285-295); Potassium 3.6 mmol/L (3.5-5.1); Sodium 138 mmol/L (136-145); Total Protein 6.4 g/dL (6.6-8.7)
[2025-11-14 07:37] VITALS: BP 168/93; PULSE 97; RESP 18; TEMP 36.8; O2SAT 94
--- NOTE | 2025-11-14 09:41 | CTR_ITS ---
PROCEDURE INFORMATION: Exam: CT Abdomen And Pelvis With Contrast Exam date and time: 11/14/2025 10:27 AM Age: 70 years old Clinical indication: Other: Evaluate micro perforation; Additional info: Evaluate microperforation TECHNIQUE: Imaging protocol: Computed tomography of the abdomen and pelvis with contrast. Radiation optimization: All CT scans at this facility use at least one of these dose optimization techniques: automated exposure control; mA and/or kV adjustment per patient size (includes targeted exams where dose is matched to clinical indication); or iterative reconstruction. Contrast material: OMNI 350; Contrast volume: 100 ml; Contrast route: INTRAVENOUS (IV); COMPARISON: CT abdomen pelvis w con* [id number] 11/12/2025 12:42 AM RADIATION DOSE METRICS: Total DLP (mGy-cm): 896.17 FINDINGS: Lungs: Patchy atelectasis involves the right lung base. Liver: Normal. No mass. Gallbladder and biliary ducts: Normal. No calcified stones. No ductal dilation. Pancreas: Normal. No ductal dilation. Spleen: Normal. No splenomegaly. Adrenal glands: Normal. No mass. Kidneys and ureters: A 6.5 cm cyst is noted in the right kidney. Stomach and bowel: Multiple diverticula involve the sigmoid colon. There is no sign of diverticulitis. Appendix: No evidence of appendicitis. Intraperitoneal space: There is a collection of air and fluid lying in the right paracolic gutter with surrounding inflammation. The collection measures 6.3 cm in length and 4.3 cm in AP diameter. The collection lies immediately lateral to the ascending colon. Vasculature: Unremarkable. No abdominal aortic aneurysm. Lymph nodes: Unremarkable. No enlarged lymph nodes. Urinary bladder: Unremarkable as visualized. Reproductive: There is an intrauterine device properly positioned within the uterus. Bones/joints: Unremarkable. No acute fracture. Soft tissues: Unremarkable. CT/CT abdomen pelvis w con* [id number] IMPRESSION: 1. Persistent extraluminal abscess lying adjacent to the ascending colon. No significant change in the past 2 days. 2. A benign renal cyst or cysts have been detected. No further follow-up imaging is required. 3. Sigmoid diverticulosis COMMENTS: Consistent with the [employer]'s Incidental Findings Committee white paper (J Am Dontrell Radiol 2018): Any incidental renal lesion less than 1 cm or classified as too small to characterize, or any incidental cystic renal lesion characterized as simple-appearing, is likely benign. No follow-up imaging is recommended for these lesions per consensus recommendations based on imaging criteria.
[2025-11-14] MEDS: iohexol 350 mg/mL 500 mL Btl (per mL) IV (10:32)
[2025-11-14 11:24] VITALS: BP 137/70; PULSE 93; RESP 18; TEMP 36.8; O2SAT 92
--- NOTE | 2025-11-14 12:33 | PM.DCS ---
Discharge Providers Date of Admission: 11/12/25 03:16 Date of Discharge: November 14, 2025 Attending Provider at Admission: Josesito Nichole MD Attending Provider at Discharge: Josesito Nichole MD Primary Care Provider: DAE Duenas Diagnoses at Discharge Discharge Diagnosis 1. Perforated bowel: Reason for Visit Reason for Visit: colonoscopy today, severe pain since eating Hospital Course Hospital Course The patient presented to the hospital via the ER due to right sided abdominal pain post colonoscopy. A CT scan demonstrated a fluid/air collection adjacent to the right colon. There was no free air. The patient otherwise felt good. She did not have a fever. She was hungry. She was passing gas. She was mated to the hospital where we evaluated her for possible progression of a microperforation. Her diet was advanced from clear liquids to regular diet. She has now been on a regular diet for over 24 hours and has tolerated it very well. She has been on IV antibiotics. She has ambulated without much difficulty. There have been no concerns. Her white count did initially increase but it began to decrease again. I discussed her situation with the patient and her . Given her progression, her reduced white blood cell count, we elected to have her discharged with the understanding that there is a small chance that she could have a recurrent issue and require surgery in the future, and that if she does she will be readmitted to the hospital. At this point, we jointly made the decision for her to go home on oral antibiotics. Physical Exam Const: COMMON NORMALS: no acute distress and patient oriented x3 GENERAL APPEARANCE: cooperative, comfortable and well developed HENMT: COMMON NORMALS: normocephalic and moist oral mucous membranes HEAD & SCALP: normocephalic Chest: COMMONS NORMALS: normal inspection of the chest Resp: COMMON NORMALS: normal respiratory effort and clear to auscultation bilaterally AUSCULTATION: clear to auscultation bilaterally Cardio: COMMON NORMALS: regular rate, regular rhythm, No gallops present (Cardio), No murmurs present (Cardio) and No rub (Cardio) RATE: regular rate RHYTHM: regular rhythm GI: COMMON NORMALS: Soft to palpation, non-tender and no masses PALPATION: Yes Soft to palpation Extremity: COMMON NORMALS: normal to inspection Neuro: COMMON NORMALS: patient oriented x3 and no focal motor deficits Skin: COMMON NORMALS: no rashes or lesions noted GENERAL SKIN EXAM: no rashes or lesions noted Discharge Data Studies Completed and Pending Completed Studies During Hospitalization Category Date Time Status CT abdomen pelvis w con* [id number] Routine Cat Scan 11/14/25 09:[address] abdomen pelvis w con* [id number] Stat Cat Scan 11/11/25 22:58 Completed XR acute abdomen series [id number] Routine Exams 11/12/25 15:24 Completed XR acute abdomen series [id number] Routine Exams 11/13/25 07:04 Completed XR chest 2V* [id number] Routine Exams 11/12/25 06:57 Completed Radiology Impressions Chest X-Ray 11/12/25 06:57 IMPRESSION: No free air identified as above. Chest/Abdomen X-ray 11/13/25 07:04 IMPRESSION: There is no abdominal free air. Abdomen/Pelvis CT 11/14/25 09:41 IMPRESSION: 1. Persistent extraluminal abscess lying adjacent to the ascending colon. No significant change in the past 2 days. 2. A benign renal cyst or cysts have been detected. No further follow-up imaging is required. 3. Sigmoid diverticulosis COMMENTS: Consistent with the [employer]'s Incidental Findings Committee white paper (J Am Dontrell Radiol 2018): Any incidental renal lesion less than 1 cm or classified as too small to characterize, or any incidental cystic renal lesion characterized as simple-appearing, is likely benign. No follow-up imaging is recommended for these lesions per consensus recommendations based on imaging criteria. Laboratory Results WBC 13.76 10^3/uL (3.29-11.43) H 11/14/25 03:16 RBC 4.09 10^6/uL (3.85-5.65) 11/14/25 03:16 Hgb 13.20 g/dL (11.27-16.99) 11/14/25 03:16 Hct 38.8 % (36-47) 11/14/25 03:16 MCV 94.9 fl (85-98) 11/14/25 03:16 MCH 32.3 pg (27-33) 11/14/25 03:16 MCHC 34.0 g/dL (30-55) 11/14/25 03:16 RDW 12.4 % (12.1-15.1) 11/14/25 03:16 Plt Count 173 10^3/cmm (157-399) 11/14/25 03:16 MPV 10.7 fL (7.4-10.4) H 11/14/25 03:16 Neut % (Auto) 75.7 % 11/14/25 03:16 Lymph % (Auto) 14.4 % 11/14/25 03:16 [place] % (Auto) 8.8 % 11/14/25 03:16 Eos % (Auto) 0.4 % 11/14/25 03:16 Baso % (Auto) 0.2 % 11/14/25 03:16 Neut # (Auto) 10.42 10^3/uL (1.8-7.7) H 11/14/25 03:16 Lymph # (Auto) 2.0 10^3/uL (0.8-4.8) 11/14/25 03:16 [place] # (Auto) 1.2 10^3/uL (0.2-0.9) H 11/14/25 03:16 Eos # (Auto) 0.1 10^3/uL (0.0-0.8) 11/14/25 03:16 Baso # (Auto) 0.0 10^3/uL (0.0-0.1) 11/14/25 03:16 Nucleated RBC % (auto) 0 % 11/14/25 03:16 Nucleated RBCs # 0.0 /100WBC 11/14/25 03:16 Sodium 138 mmol/L (136-145) 11/14/25 03:16 Potassium 3.6 mmol/L (3.5-5.1) 11/14/25 03:16 Chloride 103 mmol/L (98-107) 11/14/25 03:16 Carbon Dioxide 23 mmol/L (22-29) 11/14/25 03:16 Anion Gap 15.6 (5-19) 11/14/25 03:16 BUN 7 mg/dL (8-23) L 11/14/25 03:16 Creatinine 0.6 mg/dL (0.5-0.9) 11/14/25 03:16 GFR Calculation Not Reportable 11/14/25 03:16 Glucose 195 mg/dL (65-115) H 11/14/25 03:16 Calculated Osmolality 289 mOsm/kg (285-295) 11/14/25 03:16 Lactic Acid 1.8 mmol/L (0.5-2.2) 11/12/25 06:37 Calcium 8.1 mg/dL (8.5-10.5) L 11/14/25 03:16 Total Bilirubin 0.4 mg/dL (0.15-1.2) 11/14/25 03:16 AST 17 U/L (0-32) 11/14/25 03:16 ALT 20 U/L (0-33) 11/14/25 03:16 Alkaline Phosphatase 101 U/L (35-105) 11/14/25 03:16 Total Protein 6.4 g/dL (6.6-8.7) L 11/14/25 03:16 Albumin 3.5 g/dL (3.5-5.2) 11/14/25 03:16 Globulin 2.9 g/dL (1.3-4.6) 11/14/25 03:16 Lipase 29 U/L (13-60) 11/11/25 22:42 Urine Color Yellow (Yellow) 11/11/25 23:00 Urine Appearance Clear (CLEAR) 11/11/25 23:00 Urine pH 5.0 (5-7) 11/11/25 23:00 Ur Specific [place] 1.027 (1.005-1.030) 11/11/25 23:00 Urine Protein Negative (Negative) 11/11/25 23:00 Urine Glucose (UA) 2+ (Normal) H 11/11/25 23:00 Urine Ketones Trace (Negative) 11/11/25 23:00 Urine Blood Negative (Negative) 11/11/25 23:00 Urine Nitrate Negative (Negative) 11/11/25 23:00 Urine Bilirubin Negative (Negative) 11/11/25 23:00 Urine Urobilinogen 0.2 mg/dL (Negative) 11/11/25 23:00 Ur Leukocyte Esterase Negative (Negative) 11/11/25 23:00 Urine RBC 0-2 /hpf (0-2) 11/11/25 23:00 Urine WBC 6-10 /hpf (0-5) 11/11/25 23:00 Ur Squamous Epith Cells 0-5 /hpf (0-5) 11/11/25 23:00 Amorphous Sediment Not Reportable 11/11/25 23:00 Urine Bacteria None seen /hpf (NONE) 11/11/25 23:00 Hyaline Casts 1.65 /lpf 11/11/25 23:00 Vitals Last Vital Signs Temp 98.3 F 11/14/25 11:24 Pulse 93 11/14/25 11:24 Resp 18 11/14/25 11:24 BP 137/70 11/14/25 11:24 Pulse Ox 92 11/14/25 11:24 O2 Del Method Room Air 11/14/25 11:24 O2 Flow Rate 1 11/13/25 20:00 Discharge Plan Discharge Patient Disposition: Home Condition: Stable Prescriptions: New amoxicillin-pot clavulanate 875-125 mg tablet 1 tab PO BID Qty: 20 0RF hydrocodone-acetaminophen 5-325 mg tablet 1 tab PO Q6H PRN (Reason: pain) Qty: 10 0RF Continued Ozempic 0.25 mg or 0.5 mg (2 mg/3 mL) pen injector 0.5 mg SUBCUT .weekly Qty: 3 2RF Rx Instructions: on Wednesdays venlafaxine 150 mg capsule,extended release 24hr 150 mg PO QAM Qty: 90 1RF topiramate [Topamax] 25 mg tablet 25 mg PO BID Qty: 180 1RF olanzapine 2.5 mg tablet 2.5 mg PO .with evening meal Qty: 90 1RF magnesium oxide 400 mg magnesium tablet 800 mg PO DAILY Qty: 180 1RF atorvastatin 40 mg tablet 40 mg PO QAM Qty: 90 1RF multivitamin Tablet 1 tab PO DAILY PRN (Reason: UNKNOWN) cholecalciferol (vitamin D3) [Vitamin D3] 125 mcg (5,000 unit) Tablet 125 mcg PO QAM Held metoprolol succinate 25 mg tablet extended release 24 hr 25 mg PO QAM Qty: 90 1RF Hold Instructions: Until blood pressure rise to above systolic >140 valsartan [Diovan] 40 mg tablet 80 mg PO DAILY Hold Instructions: Until systolic blood pressure is greater than 140. Discharge Order = DC NOW: Discharge Order (Routine); Ordered 11/14/25 Ordered By: Josesito Nichole Referrals: Jesus Peng, CHRISTI[facility] [Primary Care Provider, Family Practice] Referral Note: We have notified your physician's clinic of the need for a follow-up appointment to be scheduled. If you have not heard from them within the next 2 business days, please call them directly. Josesito Nichole MD [Physician, Family Practice] - 11/16/25 3:00 pm Referral Note: When you contact the office tell them the specific time. If they are uncomfortable making appt have them call me directly. [phone] Discharge Diet: As Directed Discharge Activity: Limit activity as instructed Patient Instructions: Hydrocodone/Acetaminophen (By mouth), Amoxicillin/Clavulanate Potassium (By mouth), Abdominal Pain (ED), Perforated Bowel (DC), Opioid Safety, Patient Portal & Stefany Instructions Discharge Attestations Time Spent in Discharge Care*: greater than 30 min Quality Metrics Clinical Quality Measures [ No reported AMI, CVA or VTE this stay] Coding Level of Care Code Acute Code for Chg Fwd Diagnoses Perforated bowel K63.1
[2025-11-14 13:29] VITALS: BP 137/70; PULSE 93; RESP 18; TEMP 36.8; O2SAT 92
--- NOTE | 2025-11-14 13:37 | PC.NURSE ---
Discussed discharge new medications, hold medications and continued medications with patient. Went over follow up appointment instructions. All questions answered. Patient and spouse verbalized understanding. Medications to be picked up at [facility] in [place].
== END 2025-11-14 13:45 | disposition home or self-care (01) | DRG 919 ==
LOC: ER 11-12 01:25 → ICU 11-12 03:16 → MEDSURG 11-12 04:03
PROVIDERS: Admitting Provider Family Medicine; Emergency Provider Physician Assistant; PCP Nurse Practitioner; Visit Provider Family Medicine
DX: K91.71 Accidental puncture and laceration of a digestive system organ or structure during a digestive system procedure (principal); K63.1 Perforation of intestine (nontraumatic); I10 Essential (primary) hypertension; E78.2 Mixed hyperlipidemia; E11.9 Type 2 diabetes mellitus without complications; K76.0 Fatty (change of) liver, not elsewhere classified; F41.1 Generalized anxiety disorder; Z79.899 Other long term (current) drug therapy; Z89.021 Acquired absence of right finger(s); Z86.0100 Personal history of colon polyps, unspecified; Y83.8 Other surgical procedures as the cause of abnormal reaction of the patient, or of later complication, without mention of misadventure at the time of the procedure
CPT/HCPCS: 36415; 71046; 74022; 74177; 80053; 81001; 83605; 83690; 85025; 96365; 96375; 99285; J1200; J2270; J2405; J2543; J2919; J3490; J7120; J9999

== ENCOUNTER 2025-11-23 16:56 | Outpatient (CLI) | payer MEDICARE, SELFPAY ==
--- NOTE | 2025-11-23 17:05 | CT_ITS ---
WS: [id number] CT ABDOMEN AND PELVIS WITH CONTRAST HISTORY: PERFORATION OF INTESTINE(NONTRAUMATIC) TECHNIQUE: Imaging performed of the abdomen and pelvis with IV contrast. Single phase imaging of the abdomen. Coronal and sagittal reformats are submitted. All CT scans at [facility] use at least one of these dose optimization techniques: automated exposure control; mA and/or kV adjustment per patient size (includes targeted exams where dose is matched to clinical indication); or iterative reconstruction. IV CONTRAST: Omnipaque 350; 100 mL IV. Oral contrast: No DLP: 582.46 mGy.cm COMPARISON: 11/14/2025, 11/12/2025, 05/14/2024 Lower thorax: Lung bases are clear. Heart is normal size. Small hiatal hernia. Liver/biliary system: Hepatic steatosis with a stable 5 mm cyst along the anterior liver. No intrahepatic duct dilatation. Normal portal vein. Gallbladder: Normal. No gallstones or wall thickening. No pericholecystic fluid. Pancreas: Normal size pancreas and pancreatic duct. No adjacent inflammation. Spleen: Normal size spleen. No mass or infarct. Adrenal glands: Normal. Right kidney: Normal size kidney with no obstruction. Multiple RIGHT renal cysts. No solid mass. Left kidney: Normal size kidney with several small cysts and too small to characterize cortical hypodensities. No obstruction. Aorta: Ectatic abdominal aorta with mild dilatation to 2.7 cm, stable. Small amount of calcium at the origin of the celiac axis. No obstruction. Circumferential LEFT renal vein. Lymphadenopathy: None. Free fluid: None. GI tract: Reidentified is the abscess containing air in the RIGHT abdomen closely associated with the hepatic flexure. This abscess is in slight contact with the undersurface of the liver and the hepatic flexure. Collection measures 2.8 x 4.0 x 3.8 cm. Overall slight improvement in the overall appearance. There is less colonic wall thickening and fluid. Free air. No GI tract obstruction. Numerous colonic diverticula. Abdominal wall: Unremarkable abdominal wall. No hernia. Pelvis: Atrophic uterus. There does appear to be an IUD centrally. Small follicle LEFT ovary. Bones: Vertebroplasty at L1. CT/CT abdomen pelvis w con* [id number] IMPRESSION: 1. Persistent but slightly improved RIGHT abdominal abscess closely associated with the hepatic flexure. Abscess containing air now measures 2.8 x 4.0 x 3.8 cm. The less colonic inflammation and free air. The free air is now more contai mahesh within the abscess pocket. 2. Abscess does extend to about the undersurface of the liver and the ascendin g colon. 3. No GI tract obstruction. 4. No free fluid. 5. Bilateral renal cysts.
[2025-11-23] MEDS: iohexol 350 mg/mL 500 mL Btl (per mL) IV (17:27)
== END 2025-11-23 16:57 | disposition home or self-care (01) ==
LOC: RAD 16:59
PROVIDERS: PCP Nurse Practitioner; Visit Provider Family Medicine
DX: K63.1 Perforation of intestine (nontraumatic) (principal); N28.1 Cyst of kidney, acquired; K63.0 Abscess of intestine
CPT/HCPCS: 74177